=== PATIENT | female | born 1980 | race African-American/Black ===

== ENCOUNTER → 2019-09-10 16:00 | Outpatient (CLI) | payer OTHER, SELFPAY ==
--- NOTE | ~2019-09-10 | MM_ITS ---
EXAMINATION: MM screening min BI w beba HISTORY: Screening mammogram TECHNIQUE: Craniocaudal and mediolateral oblique 3-D tomosynthesis images were obtained and synthetic 2-D images were generated. CAD analysis was submitted and interpreted. COMPARISON: No prior mammogram is available for comparison at this institution. BREAST PARENCHYMAL COMPOSITION: There are scattered areas of fibroglandular density. FINDINGS: RIGHT BREAST: An asymmetry is present in the middle third of the slightly inner breast 5 cm from the nipple on the craniocaudal view.. LEFT BREAST: There is asymmetry in the posterior third of the breast 8.5 cm deep to it in line with t he nipple axis on the craniocaudal view.. IMPRESSION: 1. Bilateral breast asymmetries. 2. Additional mammographic views and possible breast ultrasound are recommended to evaluate for malig josue and establish a baseline given that this is the first mammographic examination. BI-RADS Category 0: Incomplete: Needs additional imaging evaluation. Reviewed, dictated and finalized at location A. IMPRESSION: 1. Bilateral breast asymmetries. 2. Additional mammographic views and possible breast ultrasound are recommended to evaluate for malignancy and establish a baseline given that this is the fir st mammographic examination. BI-RADS Category 0: Incomplete: Needs additional imaging evaluation.
== END ==
PROVIDERS: Visit Provider Nurse Practitioner Obstetrics & Gynecology
DX: Z12.31 Encounter for screening mammogram for malignant neoplasm of breast (principal); R92.8 Other abnormal and inconclusive findings on diagnostic imaging of breast
CPT/HCPCS: 77063; 77067

== ENCOUNTER 2019-09-16 20:06 | Emergency (ER) | payer OTHER, SELFPAY ==
--- NOTE | ~2019-09-16 | XR_ITS ---
EXAMINATION: XR chest 2V 09/16/2019 20:51 INDICATION: Left chest pain PROCEDURE: 2 view chest COMPARISON: 08/16/2018 FINDINGS: The lungs are clear. The cardiomediastinal silhouette is within normal limits. There are no pleural effusions. There is no pneumothorax suspected. IMPRESSION: 1: NO ACUTE CARDIOPULMONARY DISEASE. Reviewed, dictated and finalized at location A.
[2019-09-16 20:10] VITALS: BP 149/80; PULSE 77; RESP 17; TEMP 36.6; O2SAT 97
--- NOTE | 2019-09-16 20:15 | ECG_ITS ---
Measurements Intervals [place] Rate: 63 P: 49 [place]: 147 QRS: 53 QRSD: 90 T: 45 QT: 388 QTc: 397 Interpretive Statements SINUS RHYTHM NORMAL ECG Electronically Signed On 09-18-2019 14:02:57 CDT by Mitch Londono D.O.
[2019-09-16 20:18] VITALS: PULSE 73
--- NOTE | 2019-09-16 20:22 | ED.CHESTPAIN ---
HPI - Chest Pain General Chief Complaint: Chest Pain Stated Complaint: cp Time Seen by Provider: 09/16/19 20:08 Source: patient Mode of arrival: ambulatory Limitations: no limitations History of Present Illness HPI narrative: A 39 y/o female pt has presented to the ED w/ c/o severe constant sharp lt sided cp that began this morning. Pt states that she experiences discomfort in her lt arm when she moves or stretches. Pt notes that her chest hurts when it is pressed. She denies pain radiation, fever, sweats, chills, N/V, or SOB. Pt notes that she has been practicing social distancing and denies any physical activity that could have caused her pain. She states that she took 2 Aleve at lunch time, Prilocel this morning, and at 14:00 aspirin for pain. Pt denies fx of heart disorders. She also denies h/o ID, but states she has heart murmurs. Pt states that she works. She denies drinking, smoking, or drugs. She notes she recently had a mammogram of both breasts and has another scheduled for 09/25/19. complaint: chest pain (lt sided) Pertinent past history: other (mumurs) Onset (ago): hour(s) (this morning) Timing of current episode: constant Pain location: left chest Pain radiation: none Severity: severe Quality: sharp Associated symptoms: other (lt arm pain during movement or stretching, CP when pressed) Treatment prior to arrival: aspirin (2) and other (Prilosec, Aleve) Related Data Home Medications Medication Instructions Recorded Confirmed omeprazole 09/16/19 Allergies Allergy/AdvReac Type Severity Reaction Status Date / Time No Known Allergies Allergy Verified 09/16/19 20:20 Review of Systems Review of Systems: All systems reviewed & are unremarkable except as noted in HPI and below Constitutional: Constitutional: Denies chills, Denies fever(s) and Denies other (pain radiation) Cardiovascular: Cardiovascular: Reports chest pain (lt sided) and Reports other (cp when pressed) Respiratory: Respiratory: Denies dyspnea Gastrointestinal: Gastrointestinal: Denies nausea and Denies vomiting Musculoskeletal: Musculoskeletal: Reports other (lt arm pain with movement and stretching) Endocrine: Endocrine: Denies excessive sweating PMFSH Past Medical History Medical History (Updated 09/16/19 @ 21:59 by Jl Monahan MD) GERD (gastroesophageal reflux disease) Heart murmur Uterine bleeding Surgical History Surgical History (Updated 09/16/19 @ 20:43 by Mati Hagan) H/O cervical biopsy Family History Family History (Updated 09/16/19 @ 20:45 by Mati Hagan) Mother Hypertension Other Hypertension Social History Social History (Updated 09/16/19 @ 20:44 by Mati Hagan) Smoking status: Never smoker Alcohol intake: never Occupation/Education: occupation Exam Narrative: Exam Narrative: GENERAL: Well-appearing, well-nourished, and in no acute distress. HEAD: Normocephalic, atraumatic. ENT: Mucous membranes moist. No pharyngeal erythema or tonsillar exudate. CHEST: Clear to auscultation. No respiratory distress. TTP to the left anterior chest wall. HEART: Regular rate and rhythm. Normal peripheral pulses. ABDOMEN: Soft, nontender, nondistended EXTREMITIES: Normal range of motion. No edema. NEURO: Alert and oriented x3. PSYCH: Normal mood and affect. Course Course Emergency Course: Patient informed of results. Discharge home. Vital Signs Vital signs: Vital Signs Temperature 97.8 F 09/16/19 20:10 Pulse Rate 77 09/16/19 20:10 Respiratory Rate 17 09/16/19 20:10 Blood Pressure 149/80 H 09/16/19 20:10 Pulse Oximetry 97 09/16/19 20:10 Temperature 97.8 F 09/16/19 20:10 Pulse Rate 65 09/16/19 21:56 Respiratory Rate 16 09/16/19 21:56 Blood Pressure 128/75 09/16/19 21:56 Pulse Oximetry 99 09/16/19 21:56 MDM - Chest Pain Lab Data Result diagrams: 09/16/19 20:37 09/16/19 20:37 Labs: Lab Results 09/16/19 09/16/19
[2019-09-16 20:43] LABS: Basophils Percent Auto 0.4 % (0.2-1.2); Eosinophils Absolute Auto 0.1 K/mm3 (0-0.3); Eosinophils Percent Auto 1.4 % (0-4.4); Hematocrit 38.3 % (37.0-47.0); Hemoglobin 12.7 g/dL (12.0-15.0); Immature Granulocyte Absolute 0.02 K/mm3 (0.00-0.031); Immature Granulocyte Percent A 0.2 % (0-0.5); Lymphocytes Absolute Auto 4.04 K/mm3 (0.9-3.2); Lymphocytes Percent Auto 40.1 % (18.3-44.2); Mean Corpuscular HGB Conc 33.2 g/dl (32-36); Mean Corpuscular Hemoglobin 29.5 pg (26-34); Mean Corpuscular Volume 89.1 fl (80-100); Mean Platelet Volume 11.5 fl (7.4-10.4); Monocytes Absolute Auto 0.6 K/mm3 (0.1-0.6); Monocytes Percent Auto 6.1 % (2.6-8.5); Neutrophils Absolute Auto 5.2 K/mm3 (1.3-6.7); Neutrophils Percent Auto 51.8 % (45.5-73.1); Platelet Count Result 302 k/mm3 (150-375); Red Cell Distribution Width 12.6 % (11.5-14.5); White Blood Count 10.1 K/mm3 (4.5-10.0)
[2019-09-16 20:53] LABS: INR 0.9; Prothrombin Time 12.3 Seconds (11.1-14.7)
[2019-09-16 20:54] LABS: Partial Thromboplastin Time 25.2 SECONDS (22.3-36.8)
[2019-09-16 20:55] LABS: Blood Urea Nitrogen 7 mg/dL (7-17); Carbon Dioxide 26 mmol/L (22-30); Chloride 104 mmol/L (98-107); Estimated Glomerular Filt Rate > 60; Glucose 111 mg/dL (65-105); Potassium 3.9 mmol/L (3.4-5.0); Sodium 137 mmol/L (137-145)
[2019-09-16 21:01] LABS: D Dimer 0.27 ug/mL (<0.48)
[2019-09-16 21:07] LABS: Troponin I < 0.012 ng/mL (0.000-0.034)
[2019-09-16 21:56] VITALS: BP 128/75; PULSE 65; RESP 16; O2SAT 99
[2019-09-16 22:06] VITALS: BP 124/78; PULSE 71; RESP 20; O2SAT 98
== END 2019-09-16 22:27 | disposition home or self-care (01) ==
PROVIDERS: Emergency Provider Emergency Medicine
DX: R07.89 Other chest pain (principal); K21.9 Gastro-esophageal reflux disease without esophagitis
CPT/HCPCS: 36415; 71046; 80048; 84484; 85025; 85380; 85610; 85730; 93005; 99284

== ENCOUNTER 2019-10-11 12:00 | Outpatient (CLI) | payer OTHER, SELFPAY ==
--- NOTE | ~2019-10-11 | MM_ITS ---
EXAMINATION: MM diagnostic mammo BI HISTORY: Asymmetries reported in each breast on craniocaudal views of 09/10/2019 screening mammogram TECHNIQUE: Additional 3-D tomosynthesis images of both breasts were performed and synthetic 2-D image s were generated. Bilateral rolled medial and rolled lateral craniocaudal views. CAD analysis was sub mitted and interpreted. COMPARISON: 09/10/2019 bilateral digital screening mammogram FINDINGS: No reproducible mass or architectural distortion is detected. IMPRESSION: 1. No mammographic evidence of malignancy 2. Routine annual mammographic screening is recommended. BI-RADS Category 1: Negative Reviewed, dictated and finalized at location A.
== END 2019-10-11 12:01 | disposition home or self-care (01) ==
LOC: ANHIMG 12:06
PROVIDERS: Visit Provider Nurse Practitioner Obstetrics & Gynecology
DX: R92.8 Other abnormal and inconclusive findings on diagnostic imaging of breast (principal)
CPT/HCPCS: 77066

== ENCOUNTER 2020-03-02 01:18 | Emergency (ER) | payer OTHER, SELFPAY ==
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
[2020-03-02 01:24] VITALS: BP 135/90; PULSE 83; RESP 16; TEMP 36.3; O2SAT 100
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
== END 2020-03-02 02:57 | disposition home or self-care (01) ==
PROVIDERS: Emergency Provider General Practice
DX: S03.42XA Sprain of jaw, left side, initial encounter (principal); K21.9 Gastro-esophageal reflux disease without esophagitis; Y04.8XXA Assault by other bodily force, initial encounter
CPT/HCPCS: 70486; 99284

== ENCOUNTER 2020-08-30 21:00 | Emergency (ER) | payer OTHER, SELFPAY ==
--- NOTE | ~2020-08-30 | XR_ITS ---
EXAMINATION: XR chest 2V 08/30/2020 22:07 INDICATION: Midsternal chest pain PROCEDURE: PA and lateral views of the chest COMPARISON: 09/16/2019 FINDINGS: The lungs are clear. The cardiomediastinal silhouette is within normal limits. There are no pleural effusions. There is no pneumothorax suspected. IMPRESSION: 1: NO ACUTE CARDIOPULMONARY DISEASE. Reviewed, dictated and finalized at location A.
[2020-08-30 21:07] VITALS: BP 130/74; PULSE 75; RESP 19; TEMP 35.6; O2SAT 100
--- NOTE | 2020-08-30 21:10 | ECG_ITS ---
Measurements Intervals [place] Rate: 64 P: 63 HI: 148 QRS: 49 QRSD: 86 T: 44 QT: 394 QTc: 408 Interpretive Statements SINUS RHYTHM WITH SINUS ARRHYTHMIA NORMAL ECG Electronically Signed On 08-31-2020 7:08:20 CDT by Mitch Londono D.O.
[2020-08-30 21:41] LABS: Basophils Absolute Auto 0.1 K/mm3 (0.0-0.1); Basophils Percent Auto 0.5 % (0.2-1.2); Eosinophils Absolute Auto 0.2 K/mm3 (0-0.3); Eosinophils Percent Auto 1.9 % (0-4.4); Hematocrit 39.1 % (37.0-47.0); Immature Granulocyte Absolute 0.03 K/mm3 (0.00-0.031); Immature Granulocyte Percent A 0.3 % (0-0.5); Lymphocytes Percent Auto 39.2 % (18.3-44.2); Mean Corpuscular HGB Conc 33.2 g/dl (32-36); Mean Corpuscular Hemoglobin 29.6 pg (26-34); Mean Corpuscular Volume 89.1 fl (80-100); Mean Platelet Volume 10.6 fl (7.4-10.4); Monocytes Absolute Auto 0.6 K/mm3 (0.1-0.6); Monocytes Percent Auto 5.4 % (2.6-8.5); Neutrophils Absolute Auto 5.4 K/mm3 (1.3-6.7); Neutrophils Percent Auto 52.7 % (45.5-73.1); Platelet Count Result 303 k/mm3 (150-375); Red Blood Count 4.39 M/mm3 (4.2-5.4); Red Cell Distribution Width 12.6 % (11.5-14.5); White Blood Count 10.2 K/mm3 (4.5-10.0)
[2020-08-30 21:51] LABS: INR 0.9; Prothrombin Time 12.9 Seconds (11.1-14.7)
[2020-08-30 21:52] LABS: Anion Gap 6 mmol/L (8-16); Blood Urea Nitrogen 18 mg/dL (7-17); Calcium 9.1 mg/dL (8.4-10.2); Carbon Dioxide 28 mmol/L (22-30); Chloride 106 mmol/L (98-107); Estimated CRCL calculation 82 ml/min; Estimated Glomerular Filt Rate > 60; Glucose 91 mg/dL (65-105); Partial Thromboplastin Time 25.8 SECONDS (22.3-36.8); Potassium 3.8 mmol/L (3.4-5.0); Sodium 140 mmol/L (137-145)
[2020-08-30 22:04] LABS: Troponin I < 0.012 ng/mL (0.000-0.034)
--- NOTE | 2020-08-30 22:09 | ED.CHESTPAIN ---
HPI - Chest Pain General Chief Complaint: Chest Pain Stated Complaint: chest pain, increase with movement Time Seen by Provider: 08/30/20 21:59 Source: RN notes reviewed History of Present Illness HPI narrative: Patient presents to emergency department from home for chest pain. Patient states she has had midsternal chest pain for the past 2 days the pain is described as sharp and stabbing. Patient states the pain has been constant for the past 2 days but will wax and wane in intensity pain is worse with deep inspiration and movement of the torso denies any radiation of the pain denies any fevers or chills shortness of breath abdominal pain nausea vomiting diarrhea or any other symptoms Related Data Allergies Allergy/AdvReac Type Severity Reaction Status Date / Time No Known Allergies Allergy Verified 03/02/20 01:34 Review of Systems Review of Systems: Narrative: Gen.: Denies fevers or chills ENT: Denies congestion Respiratory: Denies shortness of breath or cough CV: See HPI GI: Denies abdominal pain nausea, emesis or diarrhea Musculoskeletal: Denies back pain or muscle pain Neuro: Denies numbness, tingling, weakness or focal weakness Skin: Denies rash Except as documented, all other systems reviewed and negative [facility] Past Medical History Medical History GERD (gastroesophageal reflux disease) Heart murmur Uterine bleeding Surgical History Surgical History (Updated 09/16/19 @ 20:43 by Mati Hagan) H/O cervical biopsy Family History Family History (Updated 09/16/19 @ 20:45 by Mati Hagan) Mother Hypertension Other Hypertension Social History Social History Smoking status: Never smoker Alcohol intake: never Exam Narrative: Exam Narrative: APPEARANCE: No acute distress, nontoxic, resting in bed EYES: EOMI HEENT: Normocephalic, atraumatic, OMM RESPIRATORY: No respiratory distress Clear to auscultation bilaterally with no rhonchi wheezing or rales. CARDIOVASCULAR: Regular rate and rhythm without murmurs rubs or gallops. Chest: Turn palpation of lower midsternal chest, pain increased with deep inspiration bending over rotation of torso pain improved with holding breath ABDOMINAL: Soft, nontender, nondistended, no rebound or guarding MUSCULOSKELETAl: Moves all extremities. No clubbing, cyanosis or edema. NEURO: Awake and alert. Following commands, speech normal, no focal deficits SKIN:: Warm, dry. No rashes lesions or abrasions PSYCHIATRIC: Normal affect/mood, Course Course Emergency Course: Discussed with patient results of workup and diagnosis. Discussed need for follow-up with primary care, proper use of medication, and reasons to return to the emergency department. Patient understands and agrees to current treatment plan Vital Signs Vital signs: Vital Signs Temperature 96.0 F L 08/30/20 21:07 Pulse Rate 75 08/30/20 21:07 Respiratory Rate 19 08/30/20 21:07 Blood Pressure 130/74 08/30/20 21:07 Pulse Oximetry 100 08/30/20 21:07 Temperature 96.0 F L 08/30/20 21:07 Pulse Rate 66 08/31/20 00:33 Respiratory Rate 18 08/31/20 00:33 Blood Pressure 126/82 08/31/20 00:33 Pulse Oximetry 98 08/31/20 00:33 MDM - Chest Pain MDM Narrative Medical decision making narrative: Patient's EKGs and labs are without significant high risk changes. Cardiac risk factors reviewed. Patient is felt likely low risk for ACS and reasonable for further risk stratification testing as an outpatient. Pain was not sudden or maximal in onset without tearing or ripping quality. No other signs of symptoms suggest aortic dissection. A low-risk Wells criteria is noted, PE is felt to be unlikely. No pneumonia seen on evaluation today. Patient is felt to be a reasonable candidate for continued evaluation as an outpatient Lab Data Result diagrams: 08/30/20 21:35 08/30/20 21:35
[2020-08-30 22:19] LABS: D Dimer 0.31 ug/mL (<0.48)
[2020-08-30 22:44] LABS: Alanine Aminotransferase 16 U/L (4-35); Albumin Level 4.1 g/dL (3.5-5.1); Alkaline Phosphatase 62 U/L (38-126); Aspartate Amino Transferase 38 U/L (14-36); Bilirubin,Total 0.3 mg/dL (0.2-1.3); Lipase 161 U/L (23-300)
[2020-08-30 22:56] VITALS: BP 122/72; PULSE 61; RESP 16; O2SAT 98
[2020-08-30] MEDS: KETOROLAC 30 MG/ML VIAL (*BKC) IV PUSH (22:56)
[2020-08-31 00:33] VITALS: BP 126/82; PULSE 66; RESP 18; O2SAT 98
[2020-08-31 01:22] LABS: Troponin I < 0.012 ng/mL (0.000-0.034)
[2020-08-31 02:31] VITALS: BP 135/92; PULSE 82; RESP 18; O2SAT 97
== END 2020-08-31 02:53 | disposition home or self-care (01) ==
PROVIDERS: Emergency Medicine; Emergency Provider Emergency Medicine
DX: R07.89 Other chest pain (principal); K21.9 Gastro-esophageal reflux disease without esophagitis; R01.1 Cardiac murmur, unspecified
CPT/HCPCS: 36415; 71046; 80048; 80076; 83690; 84484; 85025; 85380; 85610; 85730; 93005; 96374; 99284; A9270; J1885

== ENCOUNTER → 2020-09-12 11:12 | Outpatient (CLI) | payer OTHER, SELFPAY ==
--- NOTE | ~2020-09-12 | MM_ITS ---
EXAMINATION: MM screening min BI w beba HISTORY: Screening mammogram TECHNIQUE: Craniocaudal and mediolateral oblique 3-D tomosynthesis images were obtained and synthetic 2-D images were generated. CAD analysis was submitted and interpreted. COMPARISON: 10/11/2019, 09/10/2019 bilateral digital screening mammogram examinations BREAST PARENCHYMAL COMPOSITION: There are scattered areas of fibroglandular density. FINDINGS: There is no evidence of suspicious mass, calcification, or architectural distortion to sugg est malignancy in either breast. There has been no suspicious interval change. IMPRESSION: 1. No mammographic evidence of malignancy. 2. Recommend routine screening mammography in one year. BI-RADS Category 1: Negative Reviewed, dictated and finalized at location A.
== END ==
PROVIDERS: Visit Provider Nurse Practitioner Obstetrics & Gynecology
DX: Z12.31 Encounter for screening mammogram for malignant neoplasm of breast (principal)
CPT/HCPCS: 77063; 77067

== ENCOUNTER 2020-10-29 17:38 | Emergency (ER) | payer OTHER, SELFPAY ==
--- NOTE | 2020-10-29 17:40 | ED.SKABFB ---
HPI - Skin/Abscess/Foreign Bdy General Chief complaint: Skin/Abscess/Foreign Body Stated complaint: bump on butt Time Seen by Provider: 10/29/20 18:00 Source: patient and RN notes reviewed Mode of arrival: ambulatory Limitations: no limitations History of Present Illness HPI narrative: 40-year-old female presents concern for a bump on her left buttock. Reports symptoms started approximately 1 week ago and pain has been worsening. She denies any generalized symptoms such as fever, malaise, body aches, chills. She reports the area is tender to touch. She is not sure if it has drained or not. MD complaint: abscess/boil Related Data Home Medications Medication Instructions Recorded Confirmed drospirenone (contraceptive) 4 mg PO DAILY 10/29/20 10/29/20 [Slynd] pantoprazole 40 mg PO DAILY 10/29/20 10/29/20 sucralfate 1 g PO DAILY PRN 10/29/20 10/29/20 Allergies Allergy/AdvReac Type Severity Reaction Status Date / Time No Known Allergies Allergy Verified 10/29/20 17:44 Review of Systems Review of Systems: Narrative: CONSTITUTIONAL: Denies malaise, chills, sweats, or fever. SKIN: Bump on her left buttock MUSCULOSKELETAL: Denies myalgia. All systems reviewed & are unremarkable except as noted in HPI and below PMFSH Past Medical History Medical History GERD (gastroesophageal reflux disease) Heart murmur Uterine bleeding Surgical History Surgical History (Updated 09/16/19 @ 20:43 by Mati Hagan) H/O cervical biopsy Family History Family History (Updated 09/16/19 @ 20:45 by Mati Hagan) Mother Hypertension Other Hypertension Social History Social History Smoking status: Never smoker Alcohol intake: never Comments At time of signature, agree with nursing past medical, surgical, social and family history. There is no relevant family history pertinent to the presenting complaint Exam Narrative: Exam Narrative: GENERAL: Well-appearing, well-nourished, and in no acute distress. HEAD: Normocephalic, atraumatic. EYES: PERRLA, conjunctivae clear, and EOMI. ENT: Mucous membranes moist. Oropharynx without edema, erythema or lesions. NECK: Supple. No lymphadenopathy CHEST: Clear to auscultation. No respiratory distress. HEART: Regular rate and rhythm. SKIN: Warm, dry. Raised erythematous indurated area approximately 1 cm diameter with yellowed central scab noted to the left buttock with surrounding erythema of approximately 3 cm. No fluctuation noted, no current drainage noted NEURO: Alert and oriented x3. PSYCH: Normal mood and affect Course Course Emergency Course: Patient is aware of diagnosis, understands and agrees to treatment plan. Anticipatory guidance given. Patient agrees to follow-up as directed and is aware of reasons to seek care at the emergency department. Portions of this record may have been created with voice recognition software Vital Signs Vital signs: Vital Signs Temperature 97.3 F L 10/29/20 17:47 Pulse Rate 80 10/29/20 17:47 Respiratory Rate 16 10/29/20 17:47 Pulse Oximetry 100 10/29/20 17:47 Temperature 97.3 F L 10/29/20 17:47 Pulse Rate 80 10/29/20 17:47 Respiratory Rate 16 10/29/20 17:47 Pulse Oximetry 100 10/29/20 17:47 Reviewed. MDM - Skin/Abscess/Foreign Bdy MDM Narrative Medical decision making narrative: Exam findings show no acute concerns or changes; patient is non-toxic appearing and is in no distress. Patient is appropriate for outpatient treatment and follow-up. Differential Diagnosis Differential diagnosis: Likely abscess of skin or subcutaneous tissue, cellulitis and contact dermatitis Critical Care Time Critical Care Time Critical Care Time: No Discharge Plan Discharge Clinical Impression: Abscess and cellulitis of gluteal region Patient Disposition: Home, Self-Care Condition: Stable Inst
[2020-10-29 17:47] VITALS: PULSE 80; RESP 16; TEMP 36.3; O2SAT 100
== END 2020-10-29 18:18 | disposition home or self-care (01) ==
PROVIDERS: Emergency Provider Nurse Practitioner
DX: L02.31 Cutaneous abscess of buttock (principal); L03.317 Cellulitis of buttock; K21.9 Gastro-esophageal reflux disease without esophagitis; R01.1 Cardiac murmur, unspecified
CPT/HCPCS: 99213; G0463

== ENCOUNTER 2021-03-01 18:12 | Emergency (ER) | payer OTHER, SELFPAY ==
[2021-03-01 18:24] VITALS: BP 132/82; PULSE 68; RESP 16; TEMP 36.6; O2SAT 100
--- NOTE | 2021-03-01 18:57 | ED.SKABFB ---
HPI - Skin/Abscess/Foreign Bdy General Chief complaint: Skin/Abscess/Foreign Body Stated complaint: rash Source: patient and RN notes reviewed Limitations: no limitations History of Present Illness HPI narrative: The patient, previously mostly healthy, presents with skin eruption. Patient states she has a prior history of abscess for which she was treated with Bactrim. Now she complains about a week history of right gluteal induration that is mild, worse with palpation. No fever, fluctuance, streaking, spontaneous discharge; she also mentions in the last couple days she has developed a pink, itchy eruption on her bilateral forearms. Symptoms are mild, worse with scratching or palpation Related Data Home Medications Medication Instructions Recorded Confirmed pantoprazole 40 mg PO DAILY 10/29/20 03/01/21 Allergies Allergy/AdvReac Type Severity Reaction Status Date / Time No Known Allergies Allergy Verified 03/01/21 18:27 Review of Systems Review of Systems: General/Constitutional: No weight loss,fever Eyes: N0: Redness,discharge Ears/Nose/Throat: No: Epistaxis,ear discharge Respiratory: Denies: Hemoptysis Gastrointestinal: No Vomiting, Bleeding-rectal Skin: No Lumps, eruption Neurologic: No Focal Weakness,Sz Hematologic: Denies: Petechiae/Purpura Psychiatric: No: Suicida ideationl All Other Systems: Reviewed and Negative [facility] Past Medical History Medical History GERD (gastroesophageal reflux disease) Heart murmur Uterine bleeding Surgical History Surgical History (Updated 09/16/19 @ 20:43 by Mati Hagan) H/O cervical biopsy Family History Family History (Updated 09/16/19 @ 20:45 by Mati Hagan) Mother Hypertension Other Hypertension Social History Social History Smoking status: Never smoker Alcohol intake: never Comments At time of signature, agree with nursing past medical, surgical, social and family history. There is no relevant family history pertinent to the presenting complaint Exam Narrative: General Appearance: Well appearing, conjunctiva clear Mouth/Throat: Normal appearing, Normal lips, Supple Respiratory: Airway patent, No respiratory distress Abdomen: Soft, Skin: Warm, Dry, slightly indurated but not fluctuant right gluteal follicle Musculoskeletal: Full ROM, there are maculopapular, blanching eruption on the bilateral forearms Neurological: A&O x3, CN II-X intact Psychiatric: Normal mood, Normal affect Course Vital Signs Vital signs: Vital Signs Temperature 97.9 F 03/01/21 18:24 Pulse Rate 68 03/01/21 18:24 Respiratory Rate 16 03/01/21 18:24 Blood Pressure 132/82 03/01/21 18:24 Pulse Oximetry 100 03/01/21 18:24 Temperature 97.9 F 03/01/21 18:24 Pulse Rate 68 03/01/21 18:24 Respiratory Rate 16 03/01/21 18:24 Blood Pressure 132/82 03/01/21 18:24 Pulse Oximetry 100 03/01/21 18:24 Discharge Plan Discharge Clinical Impression: Folliculitis Patient Disposition: Home, Self-Care Condition: Stable Instructions: Antibiotic Form, MRSA (Methicillin-Resistant Staphylococcus Aureus) (ED) Additional Instructions: Take clindamycin with food, probiotic or antacid; stop if diarrhea occurs Avoid shaving or injury to hair where eruptions have occurred Antibiotic creams for future use in case individual/small lesions recur You may try OTC preparations like antihistamines for itching Prescriptions: New clindamycin HCl 300 mg capsule 300 mg PO TID Qty: 20 RF: 0 mupirocin 2 % ointment 1 applic TOPICAL TID Qty: 30 RF: 0 No Action pantoprazole 40 mg tablet,delayed release (DR/EC) 40 mg PO DAILY RF: 0 Follow-up/Referrals: Martin,Michelle Mata MD [Primary Care Provider] -
== END 2021-03-01 19:07 | disposition home or self-care (01) ==
PROVIDERS: Emergency Provider Emergency Medicine; PCP Hospitalist
DX: L73.9 Follicular disorder, unspecified (principal)
CPT/HCPCS: 99213; G0463

== ENCOUNTER 2021-06-06 13:19 | Emergency (ER) | payer OTHER, SELFPAY ==
[2021-06-06 13:27] VITALS: BP 127/77; PULSE 78; RESP 20; TEMP 36.4; O2SAT 100
--- NOTE | 2021-06-06 13:50 | ED.URI ---
HPI - URI/Sore Throat General Chief Complaint: Upper Respiratory Infection Stated Complaint: sore throat History of Present Illness HPI Narrative: This is a 40-year-old female presented to urgent care with complaints of a sore throat, mild cough,, fatigue, chills and body aches. Patient notes that she received her booster on the of this month a coworker tested positive on the for Covid she tested negative with the rapid. Patient notes that her symptoms has not improved she does have a history of having Covid along with strep throat and upper respiratory infections. The patient denies SOB, CP, palpitation, extremity numbness, lightheadedness, dizziness, constipation, diarrhea, or fever. Patient notes that she took ibuprofen at home and natural medication to boost your immune system. Related Data Home Medications Medication Instructions Recorded Confirmed pantoprazole 40 mg PO DAILY 10/29/20 06/06/21 Allergies Allergy/AdvReac Type Severity Reaction Status Date / Time No Known Allergies Allergy Verified 03/01/21 18:27 Review of Systems Review of Systems: A 14 organ system Review of Systems was performed and pertinent positives included in the HPI, otherwise remaining ROS is negative. FORMERLY [facility] Past Medical History Medical History GERD (gastroesophageal reflux disease) Heart murmur Uterine bleeding Surgical History Surgical History H/O cervical biopsy Family History Family History Mother Hypertension Other Hypertension Social History Social History Smoking status: Never smoker Alcohol intake: never Exam Narrative: GENERAL: This is a well-nourished, well-developed patient, in no apparent distress. HEAD: normocephalic, atraumatic. EYES: PERRL. Sclera clear/white. Vision is grossly intact. EARS: External ears normal, auditory canals clear and without drainage, TMs normal without perforation. Hearing grossly intact. NOSE: External nose normal with no obvious nasal discharge, nares without redness, no rhinorrhea. THROAT: Mucous membranes moist, posterior pharynx clear. NECK: Neck supple, non-tender without lymphadenopathy, masses or thyromegaly. CARDIOVASCULAR: Regular rate and rhythm without murmurs, gallops, or rubs. RESPIRATORY: Clear to auscultation. Breath sounds equal bilaterally. No wheezes, rales, or rhonchi. GASTROINTESTINAL: Abdomen soft, non-tender, nondistended. Bowel sounds are active. No hepato-splenomegaly, or palpable masses. No guarding. SKIN: warm, intact with no suspicious lesions or rash, good texture and turgor. NEURO: awake, alert, and oriented to person, place and time. There were no obvious focal neurologic abnormalities. Steady gait EXTREMITIES: Normal range of motion. No edema. No calf tenderness. Negative Homans sign bilaterally. BACK: Nontender without deformity or crepitance. No flank tenderness. Course Course Emergency Course: Patient treated for viral infection, instructed to use [id number] medication for cold and flu. Strep, influenza and Covid all negative Vital Signs Vital signs: Vital Signs Temperature 97.6 F 06/06/21 13:27 Pulse Rate 78 06/06/21 13:27 Respiratory Rate 20 06/06/21 13:27 Blood Pressure 127/77 06/06/21 13:27 Pulse Oximetry 100 06/06/21 13:27 Temperature 97.6 F 06/06/21 13:27 Pulse Rate 78 06/06/21 13:27 Respiratory Rate 20 06/06/21 13:27 Blood Pressure 127/77 06/06/21 13:27 Pulse Oximetry 100 06/06/21 13:27 MDM - URI/Sore Throat Differential Diagnosis Differential diagnosis: Likely upper respiratory infection, viral infection, influenza and pharyngitis Lab Data Labs: Influenza A Screen Negative Reference Range:
== END 2021-06-06 14:30 | disposition home or self-care (01) ==
PROVIDERS: Emergency Provider Nurse Practitioner; PCP Hospitalist
DX: J02.9 Acute pharyngitis, unspecified (principal); B34.9 Viral infection, unspecified; Z20.822 Contact with and (suspected) exposure to COVID-19; K21.9 Gastro-esophageal reflux disease without esophagitis; R01.1 Cardiac murmur, unspecified; Z86.16 Personal history of COVID-19
CPT/HCPCS: 87081; 87426; 87804; 87880; 99213; C9803; G0463

== ENCOUNTER → 2021-06-07 08:09 | Outpatient (CLI) | payer OTHER, SELFPAY ==
[2021-06-07 19:04] LABS: SARS-CoV-2 RNA PCR Negative
== END ==
PROVIDERS: PCP Hospitalist; Visit Provider Nurse Practitioner
DX: Z20.822 Contact with and (suspected) exposure to COVID-19 (principal)
CPT/HCPCS: C9803; U0003; U0005

== ENCOUNTER 2021-06-13 15:51 | Emergency (ER) | payer OTHER, SELFPAY ==
--- NOTE | ~2021-06-13 | XR_ITS ---
EXAMINATION: XR chest 2V DATE: 06/13/2021 18:36 INDICATION: Cough. Fatigue. TECHNIQUE: Frontal and lateral views of the chest were obtained. COMPARISON: Chest 2 views 08/30/2020 FINDINGS: Calcified lung nodules and calcified hilar lymph nodes are consistent with old granulomatou s disease. No pleural effusion or pneumothorax. The heart size is normal. IMPRESSION: 1. No acute cardiopulmonary disease. Reviewed, dictated and finalized at location A. ONAL GREENERY BUNDLER
[2021-06-13 16:33] VITALS: BP 138/83; PULSE 68; RESP 16; TEMP 36.1; O2SAT 100
--- NOTE | 2021-06-13 17:45 | ED.GENADULT ---
HPI - General Adult General Chief complaint: Upper Respiratory Infection Stated complaint: sore throat Source: patient Mode of arrival: ambulatory Limitations: no limitations History of Present Illness HPI narrative: Patient presents for evaluation of respiratory symptoms. She indicates that 9 days ago she developed a sore throat. She then developed a productive cough of yellow sputum, postnasal drainage, chills and fatigue. She denies any fever, nausea, vomiting, diarrhea, shortness of breath. Was evaluated here 1 week ago and had negative strep, flu, Covid testing performed. She has been drinking soup and tea to assist with her symptoms. She is also been taking Motrin and Mucinex. Her mother is being evaluated here for similar symptoms. She had Covid in February 2020. She has received her Covid vaccinations and her booster. Her boyfriend found out yesterday that he was positive for Covid. She does not smoke. No additional complaints or concerns. Related Data Home Medications Medication Instructions Recorded Confirmed pantoprazole 40 mg PO DAILY 10/29/20 06/13/21 Allergies Allergy/AdvReac Type Severity Reaction Status Date / Time No Known Allergies Allergy Verified 06/13/21 16:32 Review of Systems Review of Systems: CONSTITUTIONAL:Reports chills and fatigue. Denies fever EYES: Denies visual changes, redness, or discharge. ENT: Reports sore throat and postnasal drainage CARDIOVASCULAR: Denies chest pain, palpitations, or edema. RESPIRATORY: Reports productive cough of yellow sputum, Denies SOB GASTROINTESTINAL: Denies abdominal pain, nausea, vomiting, or diarrhea. GENITOURINARY: Denies dysuria or hematuria. SKIN: Denies rash or itching. MUSCULOSKELETAL: Denies back pain, joint pain, or myalgia. NEUROLOGIC: Denies headache, numbness, dizziness, or weakness. PSYCHIATRIC: Denies anxiety or depression. [facility] Past Medical History Medical History GERD (gastroesophageal reflux disease) Heart murmur Uterine bleeding Surgical History Surgical History H/O cervical biopsy Family History Family History Mother Hypertension Other Hypertension Social History Social History Smoking status: Never smoker Alcohol intake: never Exam Narrative: GENERAL: Well-appearing, well-nourished, and in no acute distress. HEAD: Normocephalic, atraumatic. EYES: PERRLA and EOMI. ENT: Nares clear, no rhinorrhea or epistaxis. Mucous membranes moist. Posterior pharyngeal erythema without exudate. Uvula is midline. Bilateral TMs pearly house nonbulging NECK: Supple. No adenopathy or masses. No carotid bruits or JVD CHEST: Clear to auscultation. No respiratory distress. No wheezes rales or rhonchi HEART: Regular rate and rhythm. No murmur heard. Normal peripheral pulses. ABDOMEN: Soft, nontender, nondistended, normal active bowel sounds. EXTREMITIES: Normal range of motion. No edema. SKIN: Warm, dry, no rash. NEURO: No focal deficits. Alert and oriented x3. PSYCH: Normal mood and affect. Course Course Emergency Course: This is a 40-year-old female present with complaints of respiratory symptoms with recent negative Covid, strep, influenza, chest x-ray. Symptoms have persisted. Strep, Covid, influenza and chest x-ray were all negative again today. Patient requesting antibiotics. This is reasonable given the fact that she has had a persistent sore throat. Will discharge with amoxicillin. She should follow-up outpatient for further evaluation treatment and return for worsening symptoms. Patient agreed with and of care per Level of Care: Express Care Visit Vital Signs Vital signs: Vital Signs Temperature 36.1 C L 06/13/21 16:33 Pulse Rate 68 06/13/21 16:33 Respiratory R
== END 2021-06-13 19:25 | disposition home or self-care (01) ==
PROVIDERS: Emergency Provider Nurse Practitioner; PCP Hospitalist
DX: J02.9 Acute pharyngitis, unspecified (principal); Z20.822 Contact with and (suspected) exposure to COVID-19; K21.9 Gastro-esophageal reflux disease without esophagitis; R01.1 Cardiac murmur, unspecified
CPT/HCPCS: 71046; 87081; 87426; 87804; 87880; 99213; C9803; G0463

== ENCOUNTER 2022-04-26 21:04 | Emergency (ER) | payer OTHER, SELFPAY ==
[2022-04-26 21:31] VITALS: BP 148/86; PULSE 68; RESP 14; TEMP 36.3; O2SAT 100
[2022-04-26 23:02] VITALS: BP 137/105; PULSE 74; RESP 16; TEMP 36; O2SAT 98
--- NOTE | 2022-04-27 00:32 | ED.FALL ---
HPI - Fall General Chief Complaint: Fall Stated Complaint: fall with pain to right elbow and knee Time Seen by Provider: 04/27/22 00:02 History of Present Illness HPI Narrative: 41-year-old female presents to the emergency room with multiple complaints. Patient states that 1:00 this afternoon she slipped on a gumball that fell off a gumball tree and she fell on her right side. Patient reports twisting her right ankle, then landing on her right knee hip elbow and right shoulder. Patient states that she is also experiencing pain to the left side of neck. Patient states following the injury she was able to stand up and continue finishing her shift at work, came home picked up her daughter and completed all of her normal ADLs. Patient states that pain is a 10 out of 10, but has not taken any Tylenol or ibuprofen or ice to any of the injuries. Related Data Home Medications Medication Instructions Recorded Confirmed pantoprazole 40 mg tablet,delayed 40 mg PO DAILY 10/29/20 06/13/21 release Allergies Allergy/AdvReac Type Severity Reaction Status Date / Time No Known Allergies Allergy Verified 04/26/22 21:04 Review of Systems Review of Systems: CONSTITUTIONAL: Denies fever, chills, or sweats. EYES: Denies visual changes, redness, or discharge. ENT: Denies rhinorrhea, congestion, sore throat, or otalgia. CARDIOVASCULAR: Denies chest pain, palpitations, or edema. RESPIRATORY: Denies cough or dyspnea. GASTROINTESTINAL: Denies abdominal pain, nausea, vomiting, or diarrhea. GENITOURINARY: Denies dysuria or hematuria. SKIN: Denies rash or itching. MUSCULOSKELETAL: Reports right knee, right elbow, right shoulder, and left cervical spine NEUROLOGIC: Denies headache, numbness, dizziness, or weakness. PSYCHIATRIC: Denies anxiety or depression. [facility] Past Medical History Medical History GERD (gastroesophageal reflux disease) Heart murmur Uterine bleeding Surgical History Surgical History H/O cervical biopsy Family History Family History Mother Hypertension Other Hypertension Social History Social History Smoking status: Never smoker Alcohol intake: never Exam Narrative: GENERAL: Well-appearing, well-nourished, no physical limitations, and in no acute distress. HEAD: Normocephalic, atraumatic. EYES: Conjunctivae normal, PERRLA and EOMI. CHEST: Clear to auscultation. No respiratory distress. No wheezes rales or rhonchi. HEART: Regular rate and rhythm. No murmur heard. Normal peripheral pulses. BACK: No midline cervical/thoracic/lumbar tenderness, step-offs, bony abnormality; FROM. Tenderness over the left trapezius muscle. EXTREMITIES: Right ankle: No soft tissue swelling, no bony tenderness, no ecchymosis, no bony abnormality, full range of motion. No joint laxity. Neurovascular is intact distally. Right knee: No pinpoint tenderness, no soft tissue swelling, no joint laxity, Natasha's test is negative. Full range of motion. No patellar tracking. Right elbow: Positive TTP and hematoma over the olecranon. Full range of motion, no bony abnormality. Right shoulder: No TTP, no soft tissue swelling, full range of motion, SKIN: Warm, dry, no rash. No noted wounds NEURO: No focal deficits. Alert and oriented x3. MAEW. CN's II-XI intact bilaterally, normal gait PSYCH: Cooperative. Normal mood and affect. Course Vital Signs Vital signs: Vital Signs Temperature 36.3 C L 04/26/22 21:31 Pulse Rate 68 04/26/22 21:31 Respiratory Rate 14 04/26/22 21:31 Blood Pressure 148/86 H 04/26/22 21:31 Pulse Oximetry 100 04/26/22 21:31 Oxygen Delivery Room Air 04/26/22 21:31 Temperature 36.0 C L 04/26/22 23:02 Pulse Rate 74 04/26/22 23:02 Respiratory Rate 16 04/26/22 23:02 Blood P
[2022-04-27] MEDS: KETOROLAC (*BKC) 60 MG/2 ML VIAL IM (00:59)
[2022-04-27 01:10] VITALS: BP 143/97; PULSE 61; RESP 18; O2SAT 100
== END 2022-04-27 01:17 | disposition home or self-care (01) ==
PROVIDERS: Emergency Provider Nurse Practitioner Family; PCP Hospitalist
DX: S99.911A Unspecified injury of right ankle, initial encounter (principal); S89.91XA Unspecified injury of right lower leg, initial encounter; S50.01XA Contusion of right elbow, initial encounter; M62.838 Other muscle spasm; K21.9 Gastro-esophageal reflux disease without esophagitis; W18.09XA Striking against other object with subsequent fall, initial encounter; X50.9XXA Other and unspecified overexertion or strenuous movements or postures, initial encounter
CPT/HCPCS: 96372; 99283; J1885

== ENCOUNTER 2022-05-21 13:05 | Emergency (ER) | payer OTHER, SELFPAY ==
--- NOTE | ~2022-05-21 | CT_ITS ---
EXAMINATION: CT abdomen pelvis w con DATE: 05/21/2022 16:35 INDICATION: left flank pain radiating to LLQ, constipatoin TECHNIQUE: Computed tomography (CT) of the abdomen and pelvis was performed with 100 mL Omnipaque-350 intravenous contrast. Automated exposure control and iterative reconstruction technique were employe d. The dose-length product was 893.64 mGy-cm. COMPARISON: None. FINDINGS: Lower thorax: Unremarkable Liver: Normal. Biliary/Gallbladder: Gallbladder is normal. No bile duct dilation. Pancreas: No mass or duct dilation. Spleen: Normal. Adrenals:No mass. Kidneys: 2 mm left lower pole calculus. No mass, obstructing stone, or hydronephrosis. GI tract: No small or large bowel dilation. Normal appendix. Mesentery/Peritoneum: No ascites, mass, or free air. Retroperitoneum: No mass. Pelvis: Pelvic organs are within normal limits. Soft Tissues: Uncomplicated fat-containing umbilical hernia Bones: No acute osseous finding. IMPRESSION: No acute abdominopelvic process detected. Reviewed, dictated and finalized at location K. RING ATTENDANT
[2022-05-21 13:24] VITALS: BP 134/73; PULSE 69; RESP 16; TEMP 36.4; O2SAT 100
[2022-05-21 13:36] LABS: Basophils Percent Auto 0.3 % (0.2-1.2); Eosinophils Absolute Auto 0.1 K/mm3 (0-0.3); Eosinophils Percent Auto 0.6 % (0-4.4); Hematocrit 39.3 % (37.0-47.0); Immature Granulocyte Absolute 0.05 K/mm3 (0.00-0.031); Immature Granulocyte Percent A 0.4 % (0-0.5); Lymphocytes Percent Auto 33.3 % (18.3-44.2); Mean Corpuscular HGB Conc 33.1 g/dl (32-36); Mean Corpuscular Hemoglobin 29.5 pg (26-34); Mean Corpuscular Volume 89.3 fl (80-100); Mean Platelet Volume 10.6 fl (7.4-10.4); Monocytes Absolute Auto 0.6 K/mm3 (0.1-0.6); Monocytes Percent Auto 5.4 % (2.6-8.5); Platelet Count Result 329 k/mm3 (150-375); Red Cell Distribution Width 12.8 % (11.5-14.5); White Blood Count 11.7 K/mm3 (4.5-10.0)
[2022-05-21 13:45] LABS: Alanine Aminotransferase 14 U/L (6-35); Albumin Level 3.9 g/dL (3.5-5.1); Alkaline Phosphatase 45 U/L (38-126); Anion Gap 4 mmol/L (8-16); Aspartate Amino Transferase 19 U/L (14-36); Bilirubin,Total 0.3 mg/dL (0.2-1.3); Blood Urea Nitrogen 15 mg/dL (7-17); Calcium 8.6 mg/dL (8.4-10.2); Carbon Dioxide 27 mmol/L (22-30); Chloride 104 mmol/L (98-107); Estimated CRCL calculation 106 ml/min; Estimated Glomerular Filt Rate > 60; Glucose 95 mg/dL (65-110); Lipase 172 U/L (23-300); Potassium 3.5 mmol/L (3.4-5.0); Sodium 135 mmol/L (137-145)
[2022-05-21 13:58] LABS: Appearance Urine Clear (Clear); Bilirubin Urine Negative (Negative); Blood Urine Negative (Negative); Color Urine Yellow (Yellow); Glucose Urine UA Negative (Negative); Ketones Urine Negative (Negative); Leukocyte Esterase Ur Negative LEU/UL (Negative); Nitrate Urine Negative (Negative); Protein Urine Negative (Negative); Specific Grav Ur 1.025 (1.001-1.035); Urobilinogen Urine 0.2 mg/dL (<2.0)
[2022-05-21 14:04] LABS: Add Urine Microscopic? YES; Mucus Urine Rare /lpf; RBC Urine 0-2 /hpf (0-2); Squamous Epithelial Cell Urine Rare /hpf (Few); WBC Urine 0-3 /hpf
--- NOTE | 2022-05-21 16:10 | ED.BACK ---
HPI - Back Pain/Injury General Chief Complaint: Back Pain/Injury Stated Complaint: back pain, rule out kidney stone Time Seen by Provider: 05/21/22 13:55 History of Present Illness HPI Narrative: Patient is a 41-year-old female with a history of GERD presenting with left flank pain. Patient states that for the last week she has had lower back pain that is most severe on the left side. States that she went to urgent care about a week ago and was prescribed steroids and ibuprofen. States that she was told at that time that there was blood in her urine but she did not have a kidney infection. Patient states that she has been taking steroids and ibuprofen as prescribed but continues to have significant pain. Patient followed up with her PCP earlier this week advised that she come to the ER or urgent care if her symptoms continued. Patient states that she continues to have some pain as well as constipation. States that she is urinating more frequently but it is not painful. No hematuria. No fevers or chills, headache, chest pain, shortness of breath, cough, abdominal pain, vomiting. Related Data Home Medications Medication Instructions Recorded Confirmed pantoprazole 40 mg tablet,delayed 40 mg PO DAILY 10/29/20 06/13/21 release Allergies Allergy/AdvReac Type Severity Reaction Status Date / Time No Known Allergies Allergy Verified 04/26/22 21:04 Review of Systems Review of Systems: All systems reviewed & are unremarkable except as noted in HPI and below PMFSH Past Medical History Medical History GERD (gastroesophageal reflux disease) Heart murmur Uterine bleeding Surgical History Surgical History H/O cervical biopsy Family History Family History Mother Hypertension Other Hypertension Social History Social History Smoking status: Never smoker Alcohol intake: never Exam Narrative: GENERAL: Well-appearing, well-nourished, and in no acute distress. HEAD: Normocephalic, atraumatic. EYES: PERRLA and EOMI. ENT: Nares clear, no rhinorrhea or epistaxis. Mucous membranes moist. NECK: Supple. CHEST: Clear to auscultation. No respiratory distress. HEART: Regular rate and rhythm. No murmur heard. Normal peripheral pulses. ABDOMEN: Soft, nontender, nondistended, normal active bowel sounds. + mild L flank tenderness BACK: no midline tenderness EXTREMITIES: Normal range of motion. No edema. SKIN: Warm, dry, no rash. NEURO: No focal deficits. Alert and oriented x3. PSYCH: Normal mood and affect. Course Vital Signs Vital signs: Vital Signs Temperature 97.5 F L 05/21/22 13:24 Pulse Rate 69 05/21/22 13:24 Respiratory Rate 16 05/21/22 13:24 Blood Pressure 134/73 05/21/22 13:24 Pulse Oximetry 100 05/21/22 13:24 Oxygen Delivery Room Air 05/21/22 13:24 Temperature 97.5 F L 05/21/22 13:24 Pulse Rate 69 05/21/22 13:24 Respiratory Rate 16 05/21/22 13:24 Blood Pressure 134/73 05/21/22 13:24 Pulse Oximetry 100 05/21/22 13:24 Oxygen Delivery Room Air 05/21/22 13:24 MDM - Back Pain/Injury MDM Narrative Medical decision making narrative: Patient is a 41-year-old female presenting with left flank pain. Vitals within normal limits. Patient is well-appearing and in no acute distress. Exam is remarkable for the above. Blood work reveals mild leukocytosis. No other acute abnormalities noted. UA shows no abnormalities. No blood or evidence of infection. CT abdomen pelvis shows no evidence of ureterolithiasis. No other acute abnormalities noted. Suspect patient's symptoms are musculoskeletal in nature. 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 Advised that she continue Tylenol and ibuprofen. Will prescribe short course of Flexeril and
[2022-05-21] MEDS: SODIUM CHLORIDE 0.9% IV 1,000 ML 999 ML IV CONT (16:22)
[2022-05-21] MEDS: KETOROLAC 30 MG/ML VIAL (*BKC) IV PUSH (17:51)
[2022-05-21 18:05] LABS: Urine Pregnancy Test Negative
[2022-05-21 18:06] LABS: Pregnancy On Board Control Positive
== END 2022-05-21 18:24 | disposition home or self-care (01) ==
PROVIDERS: Emergency Provider Emergency Medicine; PCP Hospitalist
DX: M54.50 Low back pain, unspecified (principal)
CPT/HCPCS: 36415; 74177; 80053; 81001; 81025; 83690; 85025; 96361; 96374; 96375; 99284; J0131; J1885; J7030; Q9967

== ENCOUNTER 2022-09-05 11:33 | Outpatient (CLI) | payer OTHER, SELFPAY ==
[2022-09-05 13:02] LABS: Alanine Aminotransferase 16 U/L (6-35); Aspartate Amino Transferase 39 U/L (14-36)
== END 2022-09-05 11:34 | disposition home or self-care (01) ==
PROVIDERS: PCP Hospitalist; Referring Provider Hospitalist; Visit Provider Podiatrist Foot & Ankle Surgery
DX: B35.1 Tinea unguium (principal)
CPT/HCPCS: 36415; 84450; 84460

== ENCOUNTER 2022-11-24 09:26 | Outpatient (CLI) | payer OTHER, SELFPAY ==
[2022-11-24 10:31] LABS: Alanine Aminotransferase 22 U/L (6-35); Aspartate Amino Transferase 32 U/L (14-36)
== END 2022-11-24 09:27 | disposition home or self-care (01) ==
PROVIDERS: PCP Hospitalist; Visit Provider Podiatrist Foot & Ankle Surgery
DX: B35.1 Tinea unguium (principal)
CPT/HCPCS: 36415; 84450; 84460

== ENCOUNTER 2024-07-24 01:16 | Day surgery (SDC) | payer OTHER, SELFPAY ==
[2024-07-17 09:28] VITALS: BMI 32.0
--- NOTE | 2024-07-17 09:31 | PC.NURSE ---
Report to the Outpatient Waiting Room, entrance under the green pavilion located off [facility], at time _1130_ on date _[id number]_. Planned Procedure Time: _130pm_.? Time changes happen often and if your time is changed the preop area will call you the afternoon before. - You and your visitor will be asked to self-screen and do not enter if you have any COVID symptoms. Please call surgeon if you need to reschedule. - A mask is optional within the hospital at this time. Patients may have clear liquids (water, carbonated beverages, clear teas, apple juice) until 3 hours prior to surgery with a maximum of 20 ounces. - No food from midnight until time of surgery and no smoking, or chewing Tabacco (or any form of nicotine). No chewing gum, candy or mints. Take only the following medications with a SIP of water on the morning of surgery: ___Duloxetine DO NOT STOP ANY OF YOUR OTHER PRESCRIPTION MEDICATIONS PRIOR TO SURGERY EXCEPT THE FOLLOWING Medications to discontinue per physician ____Wegovy___ Date to take last dose___Stop now until after surgery,.__ Please no make-up, nail irish, hairspray, perfume, deodorant, or body powder the day of surgery.? No jewelry (including any body piercings) or valuables the day of surgery, leave them at home.? Please take a shower or bath the night before, or the morning of, surgery with an antibacterial soap.? Wear comfortable, loose fitting clothing.? - Jewelry must be removed prior to entering the operating room.? Rings and piercings that are not removed may be cut off. - The hospital will not accept responsibility for valuables.? - Please leave all valuables, including medications, at home the day of surgery. If you are going home after surgery, a licensed snaker tractor driver must drive you home.? - NO public transportation without another adult if you receive anesthesia. - We recommend that an adult stay with you for 24 hours following discharge. - We also recommend that you do not drive, make important decision, drink alcoholic beverages, or take any drugs that were not prescribed by your health care provider for at least 24 hours after your discharge time. Hold all vitamins and supplements for 3 days per anesthesiologist. Follow any additional instructions given to you from your surgeon. Telephone instructions given to __Smitha___and asked if any additional questions and then verbalized understanding. Patient advised to call surgeon office or pre surgery nurse liaison [phone] if any additional questions
--- OUTSIDE RECORDS SUMMARY | 2024-07-24 01:19 | XMS_ITS | Referral Summary ---
Author Organization [facility] Medical Office Building B Address [address] [place] [address] Care Team Providers Care Web Sizer Name Role Phone Logan ROBERTSON MD, Vahe Dao Unavailable [phone] Michelle Salazar MD Primary Care Pro vider Paul Braden MD Unavailable Donell Akins MD Unavailable Encounters Date Type Department Care Team Description 07/19/2024 9:00 AM HR ASSISTANT Office Visit [facility] Orthopedics and Sports Medicine [address] [place] [phone] Jaimee Field NP Myalgia, other site (Primary Dx); Chronic neck and back pain; Kyphosis of cervical region, unspecified kyphosis type; Lumbar facet arthropathy; Degeneration of intervertebral disc of lumbar region with discogenic back pain; Anterolisthesis of lumbar spine; Numbness and tingling of right upper extremity 06/28/2024 Telephone [facility] Orthopedics and Sports Medicine [address] [place] [address] [place] [phone] Jaimee Field NP physical therapy 06/27/2024 4:10 PM HR ASSISTANT - 06/27/2024 11:59 PM HR ASSISTANT Hospital Encounter [facility] Diagnostic Imaging [address] [place] [phone] Pain of right hand Discharge Disposition: Discharge to home or self care 06/21/2024 3:15 PM HR ASSISTANT Telemedicine [facility] Primary Care at [address] [place] [address] Michelle Salazar MD Chest pain, unspecified type (Primary Dx); Ulnocarpal impaction syndrome, right; Medial epicondylitis of right elbow 06/17/2024 Orders Only [facility] [address] [place] [address] Medical Office Building [address], [address] [place] [phone] Sara Ibarra, CLAUDIA 06/03/2024 Orders Only [facility] [address] [place] [address] Medical Office Building [address], [address] [place] [phone] Sara Ibarra, CLAUDIA Dysphagia, unspecified type (Primary Dx) 05/30/2024 9:00 AM HR ASSISTANT - 05/30/2024 11:59 PM HR ASSISTANT Hospital Encounter [facility] [address] [place] [address] Dysphagia, unspecified type Discharge Disposition: Discharge to home or self care 05/22/2024 Orders Only [facility] [address] [place] [address] Medical Office Building [address], [address] [place] [address] Sara Ibarra, CLAUDIA 05/21/2024 Telephone [facility] [address] [place] [address] Medical Office Building [address], [address] [place] [phone] Sara Clark, CLAUDIA Scheduling Testing/Treatment 05/21/2024 Orders Only [facility] [address] [place] [address] Medical Office Building [address], [address] [place] [address] Sara Clark, CLAUDIA Dysphagia, unspecified type (Primary Dx) 05/19/2024 Orders Only [facility] [address] [place] [address] for Advanced Medicine 11th [place] [address] [place] [address] Grace Shirley Au.D. Dizziness (Primary Dx) 05/19/2024 Telephone [facility] [address] [facility] 11th [place] [address] [place] [phone] Grace Shirley Au.D. 05/17/2024 4:45 PM HR ASSISTANT Lab [facility] Lab [address] [place] [address] Vitamin D deficiency; Annual physical exam; Leukocytosis, unspecified type 05/17/2024 4:15 PM HR ASSISTANT Office Visit [facility] Primary Care at [address] [place] [address] Michelle Salazar MD Dizziness (Primary Dx); Chest pain, unspecified type; Pre-diabetes; Vitamin D deficiency; Leukocytosis, unspecified type; Annual physical exam 05/08/2024 Orders Only [facility] [address], [address] [place] [address] Sara Ibarra RN 05/02/2024 Telephone [facility] Primary Care at [address] [place] [phone] Michelle Salazar MD 05/02/2024 3:15 PM HR ASSISTANT Office Visit [facility] Family Medicine at [address] [place] [address] Jus Price MD Class 1 obesity due to excess calories without serious comorbidity with body mass index (BMI) of 33.0 to 33.9 in adult (Primary Dx) from Last 3 Months Allergies No known active allergies Medications albuterol HFA (ProAir HFA) 90 mcg/actuation inhaler Inhale 2 puffs every 4 (four) hours as needed for wheezing or shortness of breath 8.5 g [address] (CYMBALTA) 30 mg capsuleIndication s:Multiple joint pain Take 1 capsule (30 mg total) by mouth 2 (two) times a day 180 capsule 1 4 025 Active HYDROcodone-aceta minophen (NORCO) 5-325 mg per tabletIndications :Pain Take 1 tablet by mouth every 6 (six) hours as needed for pain 15 tablet 4 Active Additional Information Patient not taking.Reported on 07/19/2024 cyclobenzaprine (FLEXERIL) 5 mg tabletIndications :Cervical radiculopathy Take 1-2 tablets (5-10 mg total) by mouth nightly as needed for muscle spasms 30 tablet 4 Active semaglutide (Wegovy) 1.7 mg/0.75 mL auto-injectorIndi cations:Class 1 obesity due to excess calories without serious comorbidity with body mass index (BMI) of 33.0 to 33.9 in adult Inject 0.75 mL (1.7 mg total) under the skin every 7 days 3 mL 1 4 Active meclizine (ANTIVERT) 12.5 mg tabletIndications :Dizziness Take 1 tablet (12.5 mg total) by mouth 3 (three) times a day as needed for dizziness 30 tablet 4 Active cholecalciferol (VITAMIN D-3) 2000 unit capsuleIndication s:Vitamin D deficiency Take 1 capsule (2,000 Units total) by mouth daily 90 capsule [address] (NexIUM) 20 mg capsule Take 1 capsule (20 mg total) by mouth daily before breakfast 30 capsule 11 5 026 Active Hospital, Clinic, or Other Facility Administered Medication Ordered Dose Route Frequency Start Date End Date Status lidocaine (XYLOCAINE) 10 mg/mL (1 %) injection 3 mLIndications:Admini stration of Local Anesthesia 3 mL One-Time Injection 07/19/2024 07/19/2024 Ended triamcinolone (KENALOG) 40 mg/mL injection 120 mgIndications:Myalgi a, other site 120 mg One-Time Injection 07/19/2024 07/19/2024 Ended Active Problems Problem Noted Date Diagnosed Date Abnormal weight gain 01/23/2024 BMI 35.0-35.9,adult 01/23/2024 Dysphagia 12/22/2023 Multiple joint pain 10/10/2023 Overview (10/20/2023): 10/2023 AVISE negative US right foot/ankle (10/19/23): Grade 1 power doppler in the 5th MTP joint. Small calcaneal enthesophyte at the distal achilles insertion site. No other significant inflammatory changes appreciated on US examination. Assessment & Plan (11/10/2023 3:32 PM CDT): Has been evaluated by rheumatology, not consistent with auto-immune Continue cymbalta twice a day Recommend tylenol over ibuprofen given GERD, will prescribe topical voltaren gel instead Assessment & Plan (10/26/2023 10:10 AM CDT): A recent AVISE autoimmune antibody panel was negative with normal ESR/CRP levels and a normal TSH. A right foot/ankle US demonstrated a grade 1 pd of the 5th MTP joint with a small calcaneal enthesophyte at the distal achilles insertion. Based on her symptoms and work up she does not appear to have an autoimmune disease contributing to her symptoms at this time. As previously discussed she appears to have de Quervain's of the R wrist (although less tenderness with negative Guilherme's today) and R tennis elbow for which would recommend conservative treatment with bracing for up to 4 weeks and if no improvement then follow-up with orthopedist/physical therapy. Recommend tylenol arthritis 1300mg BID in addition to her cymbalta 30mg BID. If no reduction in joint pain after 2-3 weeks on the higher tylenol regimen she can discontinue. Would avoid NSAIDs due to history of gastric ulcer and GERD. Encouraged 15-20min of gentle stretching/yoga/exercise daily to help with joint strengthening which may reduce her pain. She is welcome to follow up in the future should she have any additional concerns. Seen with Dr. Akins. Assessment & Plan (10/10/2023 1:34 PM CDT): Ms. Khan returns for re-evaluation of continued joint pain. In the past she was thought to have a mild connective tissue disease and was encouraged to start MTX but this did not occur. Since that time she has followed up with [facility] rheumatology with +ALMAS only on lab work and unremarkable hand US. Today she is reporting right wrist, right elbow, knee and ankle pain. Her joint pain is worsened with use but present throughout the day. Knees and ankles will appear swollen but again typically worse by end of the day. Reports dyspnea with simple exertion with recent normal PFTs. On exam she has a +R wrist Guilherme test and +lateral epicondylitis of the R elbow. There is mild pitting edema of the ankles with questionable fullness in a few MTP joints bilaterally. Several tender peripheral and axial joints. Her symptoms do not sound inflammatory by nature. Likely with DeQuervain's and tennis elbow of the right upper extremity and discussed proper bracing and follow up with orthopedist if no improvement after 4 weeks. Will check an AVISE panel to see if she has developed any additional autoantibodies with her +ALMAS as well as basic labs and a TSH given fatigue, joint pain, lb gain. Encouraged use of Tylenol Arthritis and Voltaren gel. Also recommended she take 60mg cymbalta once daily as she forgets the 2nd 30mg dose. To discuss PM with her PCP for continued neck pain. To return in 2 weeks to discuss results. Seen with Dr. Akins who is assuming care of patient now that Dr. Ford has retired. Annual physical exam 09/01/2020 Assessment & Plan (11/10/2023 3:18 PM CDT): Reviewed PMH & FH Reviewed medications and supplements HCM: orders placed as needed Counseled on healthy lifestyle Assessment & Plan (09/03/2020 6:06 AM CDT): Never smoker Alcohol use: <7 drink/wk Encouraged to schedule mammogram PAP: UTD Planning : no, on control pills BP wnl PHQ Screening PHQ-2 Total Score (If total score is 3 or more points, staff should administer the PHQ-9): 0 PHQ-9 Total Score: 1 Body mass index is 35.67 kg/m . Discussed diet and exercise Reviewed labs Vaccinations UTD Tendinopathy of rotator cuff 12/03/2019 Assessment & Plan (02/11/2020 2:39 PM CDT): Due to family health issues she was unable to continue with PT after her first session. Strongly encouraged her to resume PT as she has reduced ROM of her bilateral shoulders with pain. Assessment & Plan (12/03/2019 3:19 PM CDT): Getting ready to start PHYSICAL THERAPY Class 2 obesity without seri ous comorbidity with body mass index (BMI) of 36.0 to 36.9 in adult 12/03/2019 Assessment & Plan (06/22/2020 9:22 AM HR ASSISTANT): BMI Follow-up includes: nutrition counseling and exercise counseling. Assessment & Plan (12/03/2019 3:23 PM CDT): BMI Follow-up includes: exercise counseling. GERD (gastroesophageal reflux disease) Assessment & Plan (12/25/2023 3:40 PM CDT): Continue nexium, recommend follow up with GI in regards to insurance approval Upcoming EGD Assessment & Plan (11/10/2023 3:38 PM CDT): Uncontrolled Discussed/given handout on lifestyle modification Will pursue PA for nexium Assessment & Plan (04/13/2023 6:24 PM CDT): Trial of Nexium 40 mg daily. She will call if she develops diarrhea. Assessment & Plan (09/07/2022 12:54 PM CDT): FMLA paperwork filled out Tapering down protonix Famotidine as needed Avoid NSAIDS Discussed/given handout on lifestyle modification Assessment & Plan (06/09/2022 9:58 AM HR ASSISTANT): Reviewed EGD Continue protonix Avoid NSAIDS Assessment & Plan (09/03/2020 6:09 AM CDT): EGD mild erosive esophagitis & diffuse gastritis On protonix Assessment & Plan (06/22/2020 9:19 AM HR ASSISTANT): Worsening Increase PPI to daily Schedule for EGD Assessment & Plan (10/11/2019 3:47 PM CDT): Significantly improved on PPI, continue x4w and then try tapering Assessment & Plan (09/11/2019 4:19 PM CDT): Uncontrolled on H2 antagonist so will start PPI No red flag symptoms necessitating EGD at this time Continue to monitor Resolved Problems Problem Noted Date Diagnosed Date Resolved Date Hepatitis B core antibody positive 04/10/2023 04/21/2023 Assessment & Plan (04/13/2023 6:24 PM CDT): The multiple negative studies for hepatitis-B surface antigen, an undetectable hepatitis-B viral load, and normal transaminases suggest this is a false- positive test. There is likely some cross reactivity with another protein in her blood. At this point, over 1 year later, the chance of her developing hepatitis-B is essentially zero. I gave her reassurance. There is no need to continue to check for the core IgM antibody at this point. 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 -Bilat hands: Ulnar positive variance is present otherwise unremarkable. -Bilat ankles: pes planus and mild midfoot OA. -T spine: Minimal spondylosis -C spine: Reversal of the normal cervical lordosis and mild kyphosis centered at C5-C6, which may be positional or related to muscular spasm. Right foot/ankle US (12/12/19): 1. Possible 5th MTP erosion dorsally seen only on that view. 2. The 1st medial MTP has grade 2 effusion. 3. The 2nd MTP has grade 2 effusion on examination, all of which will have to be correlated clinically. Right hand/wrist US (12/10/19): 1. Moderate synovial thickening/effusion with grade 1 power Doppler at the wrist. Moderate 2nd and 3rd PIP synovial thickening on examination which will have to be correlated clinically. Assessment & Plan (09/03/2020 6:09 AM CDT): Following with rheumatology Assessment & Plan (02/11/2020 4:09 PM CDT): Continues to experience right shoulder, bilateral elbow, upper back and bilateral ankle pain since last visit. Describes joint pain as achy but denies improvement with activity. Pt has not noticed swelling in the affected joints and denies stiffness sensation. Reports some dysphagia, hx of chest pain described as occasionally sharp and fingers turn purple in the cold but no other CTD symptoms. FH significant for cousin with multiple sclerosis. Recent serologies were positive for an ALMAS IgG 50 at a 1:320 dilution. Radiographic imaging revealed an ulnar positive variance of the bilateral hands, pes planus and mild midfoot OA of the bilateral feet, minimal spondylosis of the thoracic spine and a reversal of the normal cervical lordosis with mild kyphosis centered at C5-C6. A right hand/wrist US from 12/09 revealed moderate synovial thickening/effusion with grade 1 power doppler at the wrist as well as moderate 2nd and 3rd PIP synovial thickening. A right foot/ankle US on 12/11 showed possible 5th MTP erosion, 1st and 2nd MTP with grade 2 effusions. On exam there is moderate scattered synovitis of the hands with tenderness. Right shoulder continues to be tender over superior glenohumeral joint and bilateral shoulders with reduced IR. CDAI 28. Arthralgias, previous ultrasounds and current physical exam findings are suggestive of an undifferentiated inflammatory arthritis. Recommend initiating treatment with 10mg MTX once weekly and 1mg folic acid daily. Patient advised of the side effects of the medication, including but not limited to increased risk of infection, GI upset, increased LFTs, mouth sores, rash, diarrhea, and/or blood count abnormalities. Discussed that this medication can take upwards of 3 months before joint improvement is noticeable and the dosage will be increased at each subsequent visit until symptoms are controlled or the maximum dose of 20mg is achieved. PT was amenable to the plan. Return in 4 weeks. Sooner if needed. Labs at that time. Seen with Dr. Ford. Assessment & Plan (12/03/2019 3:20 PM CDT): Saw rheumatology Getting labs and imaging Continue to monitor Assessment & Plan (11/27/2019 4:53 PM CDT): Notes right shoulder, bilateral elbow, upper back and bilateral ankle pain ongoing for at least the past 6 months. Describes joint pain as achy but denies improvement with activity. Pt has not noticed swelling in the affected joints and denies stiffness sensation. Also notes locking sensation of left knee in certain positions - has been occurring since HS. Reports some dysphagia, hx of chest pain described as occasionally sharp and fingers turn purple in the cold but no other CTD symptoms. FH significant for cousin with multiple sclerosis. On exam there is scattered synovitis of the peripheral joints with tenderness. Pain appreciated over bilateral medial epicondyles without pain on resisted pronation/supination. Right shoulder is ttp over the posterior and superior aspects of shoulder girdle and has FROM with +Empty can and Neer's tests. Negative Natasha's of the left knee with ttp over the medial joint space bilaterally. Anterior aspect of bilateral ankles are ttp without swelling, erythema or warmth to palpation. Low suspicion for an inflammatory arthritis. However due to presence of peripheral joint synovitis will perform appropriate radiographs, serologies, and right hand and right foot/ankle US to assess the etiology of symptoms. Right shoulder is concerning for a rotator cuff injury - will give order for PT and see if there is benefit gained. Return in [address] Ford. Assessment & Plan (10/11/2019 3:45 PM CDT): Again recommend trial of glucosamine chrondrotin Also recommend 500mg tumeric TID Given previously negative work up for auto-immune, but persistent pain affecting multiple joints will refer to rheum Chronic pain of both ankles 09/11/2019 04/21/2023 Overview (12/04/2019): 11/29 labs: AVISE ALMAS IgG 50 @ 1:320 speckled Assessment & Plan (09/11/2019 4:17 PM CDT): Previously had work up with negative ALMAS, RF and CRP, also had normal XR. Will not repeat as unchanged clinically Chronic pain of both knees 09/11/2019 1 06/21/2022 Assessment & Plan (09/11/2019 4:17 PM CDT): Likely OA Will obtain XR Recommend glucosamine chondroitin OTC Given handout on PHYSICAL THERAPY exercises Chronic right-sided thoracic back pain 09/11/2019 04/21/2023 Assessment & Plan (10/11/2019 3:46 PM CDT): Continue PHYSICAL THERAPY exercises Heat as needed, advised not more than 20 minutes Flexeril as needed Assessment & Plan (09/11/2019 4:18 PM CDT): Likely muscular strain/spasm Advise supportive treatment with heat, massage and stretching PHYSICAL THERAPY exercise handout given Spasm 01/07/2015 04/21/2023 Overview (09/15/2016): Muscle spasm Rash 01/07/2015 09/10/2019 Overview (09/15/2016): Rash Immunizations Name Administration Dates Next Due Influenza, Quadrivalent, Danya l Culture-based MDCK, Preservative Free, Antibiotic Free, Intramuscular 04/13/2023 Influenza, Quadrivalent, Split, Intramuscular Influenza, Quadrivalent, Spl it, Preservative Free, Intramuscular 03/22/2022 Influenza, Trivalent, Preservative Free, Intramu scular 03/26/2024 Influenza, Unspecified 04/10/2020,04/21/2019 Pfizer SARS-CoV-2 Monovalent Vaccination (12+ Yrs) PURPLE 10/03/2020,09/12/2020 Tdap 04/29/2022,08/20/2011 Social History Tobacco Use Types Packs/Day Years Used Date Smoking Tobacco: Never Smokeless Tobacco: Never Tobacco Cessation:Counseling Given: Not Answered Alcohol Use Standard Drinks/Week Comments Yes 0 (1 standard drink = 0.6 oz pur e alcohol) AUDIT-C Answer Date Recorded Q1: How often do you have a drink containing alc ohol? Monthly or less 05/02/2024 Q2: How many drinks containi ng alcohol do you have on a typical day when you are drinking? 1 or 2 05/02/2024 Q3: How often do you have si x or more drinks on one occasion? Less than monthly 05/02/2024 PHQ-2 Answer Date Recorded PHQ-2 Total Score (If total score is 3 or more points, staff should administer the PHQ-9) 0 11/10/2023 Personal Safety Answer Date Recorded Have you ever been in or are you currently in a harmful physical or emotional relationship or is someone making you feel afraid or unsafe? 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 Not on file Not on file Not on file Last Filed Vital Signs Vital Sign Reading Time Taken Comments Blood Pressure 130/90 05/17/2024 4:00 PM HR ASSISTANT Pulse 86 05/17/2024 4:00 PM HR ASSISTANT Temperature 36.2 C (97.1 F) 05/17/2024 3:35 PM HR ASSISTANT Respiratory Rate 18 05/17/2024 3:35 PM HR ASSISTANT Oxygen Saturation 99% 05/17/2024 3:35 PM HR ASSISTANT Inhaled Oxygen Concentration - - Weight 80.7 kg (178 lb) 07/19/2024 9:17 AM HR ASSISTANT Height 157.5 cm (5' 2 ) 07/19/2024 9:17 AM HR ASSISTANT Body Mass Index 32.56 07/19/2024 9:17 AM HR ASSISTANT Plan of Treatment Not on file Procedures Procedure Name Priority Date/Time Associated Diagnosis Comments 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 1/2 MUSCLES Routine 07/19/2024 9:00 AM HR ASSISTANT Myalgia, other site XR HAND RIGHT 3 OR MORE VIEWS Schedule Routine, Read Routine (OP Routine) 06/27/2024 4:23 PM HR ASSISTANT Pain of right hand FL ESOPHAGRAM, DOUBLE CONTRAST Schedule Routine, Read Routine (OP Routine) 05/30/2024 10:27 AM HR ASSISTANT Dysphagia, unspecified type EGFR Routine 05/17/2024 4:57 PM HR ASSISTANT Annual physical exam DIFFERENTIAL AUTO Routine 05/17/2024 4:5 7 PM HR ASSISTANT Leukocytosis, unspecified type Annual physical exam CBC WITH AUTO DIFFERENTIAL Routine 05/17/2024 4:57 PM HR ASSISTANT Leukocytosis, unspecified type Annual physical exam COMPREHENSIVE METABOLIC PANEL Routine 05/17/2024 4:57 PM HR ASSISTANT Annual physical exam THYROID FUNCTION CASCADE Routine 05/17/2024 4:57 PM HR ASSISTANT Annual physical exam VITAMIN D 25 HYDROXY Routine 05/17/2024 4:57 PM HR ASSISTANT Vitamin D deficiency POCT HEMOGLOBIN A1C Routine 05/17/2024 4 :30 PM HR ASSISTANT Pre-diabetes SCREENING MAMMOGRAM BILATERAL W MARKY Schedule Routine, Read Routine (OP Routine) 12/11/2023 4:17 PM CDT Encounter for screening mammogram for breast cancer STOOL DNA COLOGUARD Routine 11/16/2023 6:30 PM CDT Colon cancer screening HM PAP SMEAR WITH HPV Routine 07/02/2018 from Last 3 Months or Most Recently Relevant to Health Maintenance Results * 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 1/2 MUSCLES (07/19/2024 9:00 AM HR ASSISTANT) Narrative Jaimee Field NP - 07/19/2024 9:00 AM HR ASSISTANT Jaimee Field NP 07/20/2024 9:32 PM Trigger Point Injection Performed by: Jaimee Field NP Authorized by: Jaimee Field NP Consent Given by: Patient Site marked: the procedure site was marked Timeout: prior to procedure the correct patient, procedure, and site was verified Consent obtained:: Verbal Risks discussed, including, but not limited to:: Pain Alternatives discussed:: Alternative treatment Site/side marked: Yes Indications: Pain Location: R lumbar paraspinal, R cervical paraspinal and R piriformis Local anesthetic: Ethyl chloride spray Ultrasound guidance: No Needle size: 22 G Number of muscles: 1 or 2 Approach: Posterior Medications: 3 mL lidocaine 10 mg/mL (1 %); 120 mg triamcinolone 40 mg/mL Patient tolerance: Patient tolerated the procedure well with no immediate complications us Jaimee Field GRINDING WHEEL INSPECTOR IN CLINIC/BEDSIDE ORDERABLE S Final Result * XR Hand Right 3+ Vw (06/27/2024 4:23 PM HR ASSISTANT) Anatomical Region Laterality Modality Upper Extremities, Hand Right Computed Radiography 06/30/2024 8:12 AM HR ASSISTANT Narrative 06/30/2024 8:14 AM HR ASSISTANT EXAM DESCRIPTION: XR HAND RIGHT 3 OR MORE VIEWS REASON FOR STUDY: Hand pain, nontraumatic Right hand pain with difficulty gripping thing x 1.5 weeks. Nki FINDINGS: Three views submitted with comparison 12/10/2019. No acute fractures. Ulnar positive variance is present with changes of ulnocarpal impaction. The joint spaces are otherwise normal. IMPRESSION: Right ulnar positive variance with changes of ulnocarpal impaction. THIS IS AN ELECTRONICALLY VERIFIED FINAL REPORT 06/30/2024 8:14 AM - Electronically signed by Bryce Cordova M.D. MF: MATT Report ID: [id number] Reading Location: [id number] Procedure Note Bryce Cordova MD - 06/30/2024 EXAM DESCRIPTION: XR HAND RIGHT 3 OR MORE VIEWS REASON FOR STUDY: Hand pain, nontraumatic Right hand pain with difficulty gripping thing x 1.5 weeks. Nki FINDINGS: Three views submitted with comparison 12/10/2019. No acute fractures. Ulnar positive variance is present with changes of ulnocarpal impaction. The joint spaces are otherwise normal. IMPRESSION: Right ulnar positive variance with changes of ulnocarpal impaction. THIS IS AN ELECTRONICALLY VERIFIED FINAL REPORT 06/30/2024 8:14 AM - Electronically signed by Bryce Cordova M.D. MF: MATT Report ID: [id number] Reading Location: [id number] Michelle Salazar MD IMG XR PROCEDURES Final Result * FL Esophagram, Double Contrast (05/30/2024 10:27 AM HR ASSISTANT) Anatomical Region Laterality Modality Body N/A Radio Fluoroscop y 05/30/2024 11:2 2 AM HR ASSISTANT Impressions 05/30/2024 11:33 AM HR ASSISTANT Normal esophagram. Dictated by: Vanessa Charlton M.D. The radiology attending physician has personally reviewed this study, and had reviewed and/or edited this written report and agrees with it. Electronically signed by: Sana Shanks M.D. Narrative 05/30/2024 11:33 AM HR ASSISTANT EXAMINATION: DOUBLE CONTRAST BARIUM ESOPHAGRAM HISTORY: 43-year-old female with upper abdominal pain and dysphagia, prior history of esophageal ulcer treated with PPI. Recently underwent esophagogastroduodenoscopy which did not demonstrate abnormal findings. TECHNIQUE: The patient was given barium and effervescent crystals to drink, and multiple fluoroscopic and conventional overhead radiographs were obtained. FINDINGS: Esophageal motility is normal. There is passage of contrast through a normal gastroesophageal junction. There is no hiatal hernia. The visualized portions of the stomach are normal. No reflux was elicited with provocative maneuvers. Procedure Note Sana Shanks MD - 05/30/2024 EXAMINATION: DOUBLE CONTRAST BARIUM ESOPHAGRAM HISTORY: 43-year-old female with upper abdominal pain and dysphagia, prior history of esophageal ulcer treated with PPI. Recently underwent esophagogastroduodenoscopy which did not demonstrate abnormal findings. TECHNIQUE: The patient was given barium and effervescent crystals to drink, and multiple fluoroscopic and conventional overhead radiographs were obtained. FINDINGS: Esophageal motility is normal. There is passage of contrast through a normal gastroesophageal junction. There is no hiatal hernia. The visualized portions of the stomach are normal. No reflux was elicited with provocative maneuvers. IMPRESSION: Normal esophagram. Dictated by: Vanessa Charlton M.D. The radiology attending physician has personally reviewed this study, and had reviewed and/or edited this written report and agrees with it. Electronically signed by: Sana Shanks M.D. us Huy Real MD IMG FLUOROSCOPY PROCE DURES Final Result * eGFR (05/17/2024 4:57 PM HR ASSISTANT) eGFR >90 >=60 mL/min/1. 73 m2 Comment: Interpretive Data Reference Interval Normal >/= 90 mL/min/1.73m2 Mildly decreased* 60 - 89 mL/min/1.73m2 Mildly to moderately decreased 45 - 59 mL/min/1.73m2 Moderately to severely decreased 30 - 44 mL/min/1.73m2 Severely decreased 15 - 29 mL/min/1.73m2 Kidney Failure < 15 mL/min/1.73m2 *Relative to young adult level Estimated glomerular filtration rate is determined by the 2020 CKD-EPI equation recommended by the National Kidney Foundation (A Unifying Approach to GFR Estimation: Recommendations of the NKF-ASK Task Force on Reassessing the Inclusion of Race in Diagnosing Kidney Disease, JASN 202). The CKD-EPI equation should not be used for patients with unstable renal function and has not been validated in children and those over 70. Current interpretive data was last reviewed 2021. Testing performed by: [facility], [address] [place] [address]., [id number] Blood 05/17/2024 4:57 PM HR ASSISTANT 05/17/2024 5:03 PM HR ASSISTANT us Michelle Salazar MD LAB BLOOD ORDERAB LES Final Result [facility] [address] [facility] [place] [address] * (ABNORMAL) Differential, auto (05/17/2024 4:57 PM HR ASSISTANT) Neutrophil abs 7.2(H) 1.5 - 6.5 K/cumm Comment:Testing performed by : [address], [place]., [address] Imm gran abs 0.0 0.0 - 0.1 K/cumm [facility] Comment:Testing performed by : [address], [place]., [address] Lymphocyte abs 3.1 0.8 - 3.3 K/cumm [facility] Comment:Testing performed by : [address], [place]., [address] Monocyte abs 0.5 0.2 - 0.8 K/cumm [facility] Comment:Testing performed by : [address], [place]., [address] Eosinophil abs 0.1 0.0 - 0.5 K/cumm [facility] Comment:Testing performed by : [address] [address] Basophil abs 0.0 0.0 - 0.1 K/cumm [facility] Comment:Testing performed by : [address] [address] Neutrophil pct 65.5 % [facility] Comment: Interpretive Data Percent cell count reference ranges are not reported, since discordance with absolute values may lead to misinterpretation of CBC data. Current Interpretive Data was last revised on 2017. Testing performed by: [address] [address] Imm gran pct 0.4 % [facility] Comment: Interpretive Data Percent cell count reference ranges are not reported, since discordance with absolute values may lead to misinterpretation of CBC data. Current Interpretive Data was last revised on 2017. Testing performed by: [address] [address] Lymphocyte pct 28.4 % [facility] Comment: Interpretive Data Percent cell count reference ranges are not reported, since discordance with absolute values may lead to misinterpretation of CBC data. Current Interpretive Data was last revised on 2017. Testing performed by: [address] [address] Monocyte pct 4.8 % [facility] Comment: Interpretive Data Percent cell count reference ranges are not reported, since discordance with absolute values may lead to misinterpretation of CBC data. Current Interpretive Data was last revised on 2017. Testing performed by: [address] [address] Eosinophil pct 0.6 % [facility] Comment: Interpretive Data Percent cell count reference ranges are not reported, since discordance with absolute values may lead to misinterpretation of CBC data. Current Interpretive Data was last revised on 2017. Testing performed by: [address] [address] Basophil pct 0.3 % [facility] Comment: Interpretive Data Percent cell count reference ranges are not reported, since discordance with absolute values may lead to misinterpretation of CBC data. Current Interpretive Data was last revised on 2017. Testing performed by: [address] [address] Blood 05/17/2024 4:57 PM HR ASSISTANT 05/17/2024 5:04 PM HR ASSISTANT us Michelle Salazar MD LAB BLOOD ORDERAB LES Final Result [address] [employer] [place] [address] * Thyroid Function [place] (05/17/2024 4:57 PM HR ASSISTANT) TSH 0.50 0.30 - 4.20 mcIUnit/mL Comment:Testing performed by : [address] [address] Blood 05/17/2024 4:57 PM HR ASSISTANT 05/17/2024 5:03 PM HR ASSISTANT Michelle Salazar MD LAB BLOOD ORDERAB LES Final Result SANDY [address] [place] [address] * (ABNORMAL) CBC with auto differential (05/17/2024 4:57 PM HR ASSISTANT) [facility] WBC 11.0(H) 3.8 - 9.9 K/cumm Comment:Testing performed by : [address], [address] Hgb 13.8 11.9 - 15.5 g/dL S[facility]Y Comment:Testing performed by : [address], [address] Hct 42.2 35.6 - 45.5 % [facility] Comment:Testing performed by : [address], [address] Plt 347 150 - 400 K/cumm [facility] Comment:Testing performed by : [address], [address] MPV 10.3 9.1 - 12.3 fL [facility] Comment:Testing performed by : [address], [address] RBC 4.67 3.90 - 5.20 M/cumm [facility] Comment:Testing performed by : [address], [address] MCV 90.4 81.3 - 96.4 fL [facility] Comment:Testing performed by : [address], [address] MCH 29.6 27.1 - 33.3 pg S[facility]Y Comment:Testing performed by : [address], [address] MCHC 32.7 32.3 - 35.7 g/dL S[facility]Y Comment:Testing performed by : [address], [address] RDW CV 13.8 11.1 - 14.9 % [facility] Comment:Testing performed by : [address], [address] RDW SD 45.6 35.7 - 48.1 fL S[facility]Y Comment:Testing performed by : [address], [address] NRBC abs 0.00 0.00 - 0.01 K/cumm [facility] Comment:Testing performed by : [address] [address] Blood 05/17/2024 4:57 PM HR ASSISTANT 05/17/2024 5:04 PM HR ASSISTANT Michelle Salazar MD LAB BLOOD ORDERAB LES Final Result Performing Organization Address City/[facility] Co de Phone Number [address] [address] * (ABNORMAL) Vitamin D 25 hydroxy (05/17/2024 4:57 PM HR ASSISTANT) Pathologist [facility] Vitamin D 25-OH 11.0(L) 30.0 - 80.0 ng/mL Blood 05/17/2024 4:57 PM HR ASSISTANT 05/17/2024 8:40 PM HR ASSISTANT Michelle Salazar MD LAB BLOOD ORDERAB LES Final Result Performing Organization Address [facility] de Phone Number [address] [address] * Comprehensive metabolic panel (05/17/2024 4:57 PM HR ASSISTANT) [facility] Sodium 139 135 - 145 mmol/L Comment:Testing performed by : [address] [address] Potassium, pl 4.3 3.3 - 4.9 mmol/L S[facility]Y Comment:Testing performed by : [address] [address] Chloride 102 97 - 110 mmol/L S[facility]Y Comment:Testing performed by : [address] [address] CO2 27 22 - 32 mmol/L S[facility]Y Comment:Testing performed by : [address] [address] Anion gap 10 2 - 15 mmol/L S[facility]Y Comment:Testing performed by : [address] [address] BUN 11 6 - 25 mg/dL SANDY Comment:Testing performed by : [address] [place] [address] Creatinine 0.60 0.60 - 1.10 mg/dL S[facility]Y Comment:Testing performed by : [address] [address] Glucose 98 70 - 199 mg/dL SANDY Comment: Interpretive Data Fasting glucose >/= 126 mg/dl is diagnostic for diabetes. Fasting is defined as no caloric intake for at least 8 hours. Fasting glucose between 100 mg/dl to 125 mg/dl is diagnostic of prediabetes. In a patient with classic symptoms of hyperglycemia or hyperglycemic crisis, a random glucose >/= 200 mg/dl is diagnostic for diabetes. In the absence of unequivocal hyperglycemia, results should be confirmed by repeat testing. The classification and Diagnosis of Diabetes Diabetes Care 202; 46: S19-S40. Current interpretive data was last revised 2022. Testing performed by: [address] [address] Calcium 10.0 8.5 - 10.3 mg/dL [facility]Y Comment:Testing performed by : [address] [address] Bilirubin, total 0.2 0.1 - 1.2 mg/dL [facility] Comment:Testing performed by : [address] [address] Protein, pl 7.4 6.5 - 8.5 g/dL [facility] Comment:Testing performed by : [address] [address] Albumin 4.1 3.5 - 5.0 g/dL [facility] Comment:Testing performed by : [address] [address] Alk phos 56 40 - 130 Units/L [facility] Comment:Testing performed by : [address] [address] ALT 20 7 - 45 Units/L [facility] Comment:Testing performed by : [address] [address] AST 17 10 - 45 Units/L [facility] Comment:Testing performed by : [address] [address] Blood 05/17/2024 4:57 PM HR ASSISTANT 05/17/2024 5:03 PM HR ASSISTANT us Michelle Salazar MD LAB BLOOD ORDERAB LES Final Result S[facility]Y [facility] [address] [facility] [place] [address] * POCT hemoglobin A1c (05/17/2024 4:30 PM HR ASSISTANT) Hemoglobin A1C, POC 5.7 4.0 - 5.6 % Blood 05/17/2024 4:30 PM HR ASSISTANT us Michelle Salazar MD POINT OF CARE TRISTA T ORDERABLES Final Result * Screening Mammogram Bilateral W Marky (12/11/2023 4:17 PM CDT) Anatomical Region Laterality Modality Breast Bilateral Mammography Impressions 12/12/2023 7:41 AM CDT BI-RADS ATLAS category (overall): 1 - Negative There is no mammographic evidence of malignancy. A 1 year screening mammogram is recommended. The patient has been or will be contacted. We recommend annual screening mammography for women at average risk of breast cancer beginning at age 40, based on guidelines of the [employer] (ACR Practice Parameter for the Performance of Screening and Diagnostic Mammography) and [employer]. For women with and elevated risk of breast cancer, please refer to the ACR Practice Parameter for specific screening recommendations. The patient will be entered into a reminder system with a target due date of 1 year for her next screening exam. Narrative 12/12/2023 7:41 AM CDT Screening Mammogram Bilateral W Marky: 12/11/23 The study was acquired using full field digital technology and interpreted from soft copy. 2D digital mammographic views, as well as 3D digital tomosynthesis were performed in the CC and MLO projections. CLINICAL: Encounter for screening mammogram for breast cancer. No relevant medical history has been documented for this patient. No known family history of breast cancer. COMPARISONS: 10/27/2022 Screening Mammogram Bilateral W Marky 09/09/2021 Screening Mammogram Bilateral W Marky 09/12/2020 Breast Imaging Screening Outside Reference 10/11/2019 Breast Imaging Diagnostic Outside Reference 09/10/2019 Breast Imaging Screening Outside Reference BREAST TISSUE: The breasts have scattered areas of fibroglandular density. FINDINGS: There is no new suspicious finding in either breast on mammogram. Michelle Salazar MD IM MAMMO PROCEDU RES Final Result * Stool DNA - Cologuard (11/16/2023 6:30 PM CDT) Stool DNA - Cologuard Negative Negative [facility] (CLIA #:[id number]) Comment: NEGATIVE TEST RESULT. A negative Cologuard result indicates a low likelihood that a colorectal cancer (CRC) or advanced adenoma (adenomatous polyps with more advanced pre-malignant features) is present. The chance that a person with a negative Cologuard test has a colorectal cancer is less than 1 in 1500 (negative predictive value >99.9%) or has an advanced adenoma is less than 5.3% (negative predictive value 94.7%). These data are based on a prospective cross-sectional study of 10,000 individuals at average risk for colorectal cancer who were screened with both Cologuard and colonoscopy. (Mirta Burnette et al, N Engl J Med 2014;370(14):4647-3256) The normal value (reference range) for this assay is negative. COLOGUARD RE-SCREENING RECOMMENDATION: Periodic colorectal cancer screening is an important part of preventive healthcare for asymptomatic individuals at average risk for colorectal cancer. Following a negative Cologuard result, the [employer] and U.S. Multi-Society Task Force screening guidelines recommend a Cologuard re-screening interval of 3 years. References: [employer] Guideline for Colorectal Cancer Screening: https://www.cancer.org/cancer/xzsjr-iussev-ayxzne/rixxonunm-amrdjuwdc-ycepvzk/ac s-rec ommendations.html.; Timoteo NAVAS, Janel FENG, Rosana TREVINO, Colorectal Cancer Screening: Recommendations for Physicians and Patients from the U.S. Multi-Society Task Force on Colorectal Cancer Screening , Am J Gastroenterology 2017; 112:6142-9588. TEST DESCRIPTION: Composite algorithmic analysis of stool DNA-biomarkers with hemoglobin immunoassay. Quantitative values of individual biomarkers are not reportable and are not associated with individual biomarker result reference ranges. Cologuard is intended for colorectal cancer screening of adults of either sex, 45 years or older, who are at average-risk for colorectal cancer (CRC). Cologuard has been approved for use by the U.S. FDA. The performance of Cologuard was established in a cross sectional study of average-risk adults aged 50-84. Cologuard performance in patients ages 45 to 49 years was estimated by sub-group analysis of near-age groups. Colonoscopies performed for a positive result may find as the most clinically significant lesion: colorectal cancer [4.0%], advanced adenoma (including sessile serrated polyps greater than or equal to 1cm diameter) [20%] or non- advanced adenoma [31%]; or no colorectal neoplasia [45%]. These estimates are derived from a prospective cross-sectional screening study of 10,000 individuals at average risk for colorectal cancer who were screened with both Cologuard and colonoscopy. (Mirta Feliz al, N Engl J Med 2014;370(14):3575-4696.) Cologuard may produce a false negative or false positive result (no colorectal cancer or precancerous polyp present at colonoscopy follow up). A negative Cologuard test result does not guarantee the absence of CRC or advanced adenoma (pre-cancer). The current Cologuard screening interval is every 3 years. ([employer] and U.S. Multi-Society Task Force). Cologuard performance data in a 10,000 patient pivotal study using colonoscopy as the reference method can be accessed at the following location: www.[employer].GloNav/results. Additional description of the Cologuard test process, warnings and precautions can be found at www.[employer].GloNav. Stool 11/16/2023 6:30 PM CDT 11/18/2023 1:35 PM CDT us Michelle Salazar MD LAB BODY FLUIDS A ND STOOLS ORDERABLES Final Result [facility] (CLIA #:[id number]) [address] [place] [address] * HM PAP SMEAR WITH HPV (07/02/2018) 07/02/2018 us Historical Provider HEALTH MAINTENANCE Final Result from Last 3 Months or Most Recently Relevant to Health Maintenance Insurance [facility] [id number] [employer] PPO POS [facility] [id number] Member Subscriber Plan / Payer (Ef fective 2020-Present) Name:Smitha Khan Member ID:[id number] Relation to Subscriber:Self Name:Smitha Khan Subscriber ID:[id number] Payer ID:[id number] Type:[employer] HMO/PPO Address: [place] [id number] [facility] [id number] Advance Directives For more information, please contact: [phone] * Full Code (Latest Code Status on File) Date Activated Date Inactivated Comments 01/08/2024 2:16 PM 01/08/2024 8:45 PM * Full Code Date Activated Date Inactivated Comments 08/12/2022 8:20 AM 08/12/2022 1:51 PM * Full Code Date Activated Date Inactivated Comments 06/02/2022 8:38 AM 06/02/2022 1:13 PM Care Teams Web Sizer Relationship Specialty Start Date End Date Michelle Salazar MD [address] [place] [address] PCP - General 03/31/20 Vahe Ford III, MD [address] [place] [address] Consulting Physician Rheumatology 10/18/19 Paul Braden MD [address] [facility] [place] [address] Consulting Physician Pain Management 11/01/22 Donell Akins MD [address] [place] [address] Consulting Physician Rheumatology 10/26/23
--- OUTSIDE RECORDS SUMMARY | 2024-07-24 01:19 | XMS_ITS | Clinical Summary ---
Author Organization [facility] Medical Office Building B Address [address] [place] [address] Care Team Providers Care Mattress Stuffer Name Role Phone Logan ROBERTSON MD, Vahe Dao Unavailable Michelle Salazar MD Primary Care Pro vider Paul Braden MD Unavailable Donell Akins MD Unavailable [phone] Allergies No known active allergies Medications albuterol [...] Plan (10/26/2023 10:10 AM CDT): A recent [facility] autoimmune antibody panel was negative with normal [...] that [facility] only on lab work [...] 12/03/2019 Assessment & Plan (06/22/2020 9:22 AM DIRECTOR VOLUNTEER SERVICES): BMI Follow-up includes: nutrition counseling and exercise [...] modification Assessment & Plan (06/09/2022 9:58 AM DIRECTOR VOLUNTEER SERVICES): Reviewed EGD Continue protonix Avoid NSAIDS Assessment & Plan (09/03/2020 6:09 AM CDT): EGD mild erosive esophagitis & diffuse gastritis On protonix Assessment & Plan (06/22/2020 9:19 AM DIRECTOR VOLUNTEER SERVICES): Worsening Increase PPI to daily Schedule for [...] this point. Shortness of breath 10/03/2022 04/21/20 Gastric ulcer without hemorr jeanne or perforation 07/14/2022 04/13/2023 Overview (07/14/2022): Added automatically from request for surgery [id number] Irregular menses 06/22/2020 04/21/2023 Assessment & Plan (06/22/2020 9:23 AM DIRECTOR VOLUNTEER SERVICES): Following with gynecology, encouraged to restart control pills Undifferentiated inflammator y arthritis (CMS/HCC) 10/11/2019 04/21/2023 Overview (02/10/2020): 11/29 labs: AVISE [...] spasm Rash 01/07/2015 09/10/2019 Overview (09/15/2016): Rash Encounters Date Type Department Care Team Description 07/19/2024 9:00 AM DIRECTOR VOLUNTEER SERVICES Office Visit [facility] [address] [place] [phone] Jaimee Field NP Myalgia, other site (Primary Dx); Chronic neck and back pain; Kyphosis of cervical region, unspecified kyphosis type; Lumbar facet arthropathy; Degeneration of intervertebral disc of lumbar region with discogenic back pain; Anterolisthesis of lumbar spine; Numbness and tingling of right upper extremity 06/28/2024 Telephone [facility] [address] [place] [phone] Jaimee Field NP physical therapy 06/27/2024 4:10 PM DIRECTOR VOLUNTEER SERVICES - 06/27/2024 11:59 PM DIRECTOR VOLUNTEER SERVICES Hospital Encounter [facility] [address] [place] [address] Pain of right hand Discharge Disposition: Discharge to home or self care 06/21/2024 3:15 PM DIRECTOR VOLUNTEER SERVICES Telemedicine [facility] [place] [address] [facility] [address] [place] [phone] Michelle Salazar MD Chest pain, unspecified type (Primary Dx); Ulnocarpal impaction syndrome, right; Medial epicondylitis of right elbow 06/17/2024 Orders Only [facility] [address] [place] [address] Medical Office Building [address], [address] [place] [address] Sara Ibarra RN 06/03/2024 Orders Only [facility] [address] [place] [address] Medical Office Building [address], [address] [place] [address] Sara Ibarra, CLAUDIA Dysphagia, unspecified type (Primary Dx) 05/30/2024 9:00 AM DIRECTOR VOLUNTEER SERVICES - 05/30/2024 11:59 PM DIRECTOR VOLUNTEER SERVICES Hospital Encounter [facility] [address] [place] [address] Dysphagia, unspecified type Discharge Disposition: Discharge to home or self care 05/22/2024 Orders Only [facility] [address] [place] [address] Medical Office Building [address], [address] [place] [address] Sara Ibarra RN 05/21/2024 Telephone [facility] [address] [place] [address] Medical Office Building [address], [address] [place] [address] Sara Clark RN Scheduling Testing/Treatment 05/21/2024 Orders Only [facility] [address] [place] [address] Medical Office Building [address], [address] [place] [address] Sara Clark, CLAUDIA Dysphagia, unspecified type (Primary Dx) 05/19/2024 Orders Only [facility] [address] [place] [address] Advanced Medicine 11th [place] [address] [place] [address] Grcae Shirley Au.D. Dizziness (Primary Dx) 05/19/2024 Telephone [facility] [address] [place] [address] Advanced Medicine [address]th [place] [address] [place] [address] Grace Shirley Au.D. 05/17/2024 4:45 PM DIRECTOR VOLUNTEER SERVICES Lab [facility] [address] [place] [address] Vitamin D deficiency; Annual physical exam; Leukocytosis, unspecified type 05/17/2024 4:15 PM DIRECTOR VOLUNTEER SERVICES Office Visit [facility] at [address] [place] [phone] Michelle Salazar MD Dizziness (Primary Dx); Chest pain, unspecified type; Pre-diabetes; Vitamin D deficiency; Leukocytosis, unspecified type; Annual physical exam 05/08/2024 Orders Only [facility] [address] [place] [address] Medical Office Building [address], [address] [place] [address] Sara Ibarra RN 05/02/2024 3:15 PM DIRECTOR VOLUNTEER SERVICES Office Visit [facility] at [address] [place] [address] Jus Price MD Class 1 obesity due to excess calories without serious comorbidity with body mass index (BMI) of 33.0 to 33.9 in adult (Primary Dx) 05/02/2024 Telephone [facility] at [address] [place] [phone] Michelle Salazar MD from Last 3 Months Immunizations Name Administration Dates Next Due Influenza, Quadrivalent, Danya l Culture-based MDCK, Preservative Free, Antibiotic Free, Intramuscular 04/13/2023 Influenza, Quadrivalent, Split, Intramuscular Influenza, Quadrivalent, Spl it, Preservative Free, Intramuscular 03/22/2022 Influenza, Trivalent, Preservative Free, Intramu scular 03/26/2024 Influenza, Unspecified 04/10/2020,04/21/2019 Pfizer SARS-CoV-2 Monovalent Vaccination (12+ Yrs) PURPLE 10/03/2020,09/12/2020 Tdap 04/29/2022,08/20/2011 Surgical History Surgery Date Site/Laterality Comments UPPER GASTROINTESTINAL ENDOSCOPY WISDOM TOOTH EXTRACTION Medical History Medical History Date Comments GERD (gastroesophageal reflux disease) Chest pain Shortness of breath Lumbar facet arthropathy Protrusion of lumbar interve rtebral disc Peptic ulceration Anterolisthesis of lumbar sp ine, minimal L4 on L5 09/05/2022 Arthritis 05/2023 Neuromuscular disorder (HCC) 05/2023 Gastric ulcer without hemorr jeanne or perforation 07/14/2022 Added automatically from [facility] for surgery [id number] Family History Medical History Relation Name Comments No Known Problems Father Cancer Maternal Grandfather Jonathan Patel Alzheimer's disease Mother Torrie Patel Arthritis Mother Torrie Patel Clotting disorder Mother Torrie Patel Diabetes Mother Torrie Patel Kidney disease Mother Torrie Patel Memory loss Mother Torrie Patel Mental illness Mother Torrie Patel Cancer Other 1 Family history of Cancer -; Diabetes Other 2 Family history of Diabetes mellitus; Relation Name Status Comments Father Maternal Grandfather Jonathan Patel Mother Torrie Patel Alive Other 1 Other 2 Social History Tobacco Use Types Packs/Day Years [...] on file Legal Sex Female 10:55 AM DIRECTOR VOLUNTEER SERVICES Gender Identity Female 10/08/2020 8:14 PM CDT Sexual Orientation Not on file 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 Not on file Not on file Not on file Obstetrics History Para Term AB IAB SAB Ectopic Multiple Livin g Live Births 2 2 2 Date Outcome GA Total Labor Labor/2nd/3rd Weight Sex Type Anes PTL Malika A1 A5 Name Clin Term Term Last Filed Vital Signs Vital Sign Reading Time Taken Comments Blood Pressure 130/90 05/17/2024 4:00 PM DIRECTOR VOLUNTEER SERVICES Pulse 86 05/17/2024 4:00 PM DIRECTOR VOLUNTEER SERVICES Temperature 36.2 C (97.1 F) 05/17/2024 3:35 PM DIRECTOR VOLUNTEER SERVICES Respiratory Rate 18 05/17/2024 3:35 PM DIRECTOR VOLUNTEER SERVICES Oxygen Saturation 99% 05/17/2024 3:35 PM DIRECTOR VOLUNTEER SERVICES Inhaled Oxygen Concentration - - Weight 80.7 kg (178 lb) 07/19/2024 9:17 AM DIRECTOR VOLUNTEER SERVICES Height 157.5 cm (5' 2 ) 07/19/2024 9:17 AM DIRECTOR VOLUNTEER SERVICES Body Mass Index 32.56 07/19/2024 9:17 AM DIRECTOR VOLUNTEER SERVICES Plan of Treatment Health Maintenance Due Date Last Done Comments Cervical Cancer Screening 07/02/2023 07/02/2018 Covid-19 Vaccine ( season) 2024 06/01/2021, 10/03/2020, 09/12/2020 Depression Screening 11/09/2024 11/10/2023, 11/10/2023, 07/25/2023, Additional history exists Regular Well Visit/Exam 18-64 11/09/2024 11/10/2023, 09/01/2020 Breast Cancer Screening-Mammogram 12/10/2024 12/11/2023, 10/27/2022, 09/09/2021, Additional history exists Colon Cancer Screening-DNA Stool 11/15/2026 11/16/2023 DTaP/Tdap/Td Vaccine (3 - Td or Tdap) 04/29/2032 04/29/2022, 08/20/2011 Hepatitis B Screening Completed 01/02/2023 Hepatitis C Screening Completed 01/02/2023 Influenza Vaccine Completed 03/26/2024, , 03/22/2022, Additional history exists HPV Vaccines Aged Out No longer eligi ble based on patient's age to complete this topic Pneumococcal vaccine <65 Aged Out No longer eligible based on patient's age to complete this topic Procedures Procedure Name Priority Date/Time Associated Diagnosis Comments WI INJECTION SINGLE/IV RN TRIGGER POINT 1/2 MUSCLES Routine 07/19/2024 9:00 AM DIRECTOR VOLUNTEER SERVICES Myalgia, other site XR HAND RIGHT 3 OR MORE VIEWS Schedule Routine, Read Routine (OP Routine) 06/27/2024 4:23 PM DIRECTOR VOLUNTEER SERVICES Pain of right hand FL ESOPHAGRAM, DOUBLE CONTRAST Schedule Routine, Read Routine (OP Routine) 05/30/2024 10:27 AM DIRECTOR VOLUNTEER SERVICES Dysphagia, unspecified type EGFR Routine 05/17/2024 4:57 PM DIRECTOR VOLUNTEER SERVICES Annual physical exam DIFFERENTIAL AUTO Routine 05/17/2024 4:5 7 PM DIRECTOR VOLUNTEER SERVICES Leukocytosis, unspecified type Annual physical exam CBC WITH AUTO DIFFERENTIAL Routine 05/17/2024 4:57 PM DIRECTOR VOLUNTEER SERVICES Leukocytosis, unspecified type Annual physical exam COMPREHENSIVE METABOLIC PANEL Routine 05/17/2024 4:57 PM DIRECTOR VOLUNTEER SERVICES Annual physical exam THYROID FUNCTION CASCADE Routine 05/17/2024 4:57 PM DIRECTOR VOLUNTEER SERVICES Annual physical exam VITAMIN D 25 HYDROXY Routine 05/17/2024 4:57 PM DIRECTOR VOLUNTEER SERVICES Vitamin D deficiency POCT HEMOGLOBIN A1C Routine 05/17/2024 4 :30 PM DIRECTOR VOLUNTEER SERVICES Pre-diabetes SCREENING MAMMOGRAM BILATERAL W MARKY Schedule Routine, Read Routine (OP Routine) 12/11/2023 4:17 PM CDT Encounter for screening mammogram for breast cancer STOOL DNA COLOGUARD Routine 11/16/2023 6:30 PM CDT Colon cancer screening HM PAP SMEAR WITH HPV Routine 07/02/2018 from Last 3 Months or Most Recently Relevant to Health Maintenance Results * WI INJECTION SINGLE/IV RN TRIGGER POINT 1/2 MUSCLES (07/19/2024 9:00 AM DIRECTOR VOLUNTEER SERVICES) Narrative Jaimee Field NP - 07/19/2024 9:00 AM DIRECTOR VOLUNTEER SERVICES Jaimee Field NP 07/20/2024 9:32 PM Trigger [...] with no immediate complications us Jaimee Field SISAL PICKER IN CLINIC/BEDSIDE ORDERABLE S Final Result * XR Hand Right 3+ Vw (06/27/2024 4:23 PM DIRECTOR VOLUNTEER SERVICES) Anatomical Region Laterality Modality Upper Extremities, Hand Right Computed Radiography 06/30/2024 8:12 AM DIRECTOR VOLUNTEER SERVICES Narrative 06/30/2024 8:14 AM DIRECTOR VOLUNTEER SERVICES EXAM DESCRIPTION: XR HAND RIGHT 3 OR [...] Bryce Cordova M.D. MF: MATT Report ID: [id number] Reading Location: [id number] Procedure Note Bryce Cordova MD - 06/30/2024 [...] Bryce Cordova M.D. MF: MATT Report ID: [id number] Reading Location: [place] [address] Michelle Salazar MD IMG XR PROCEDURES Final Result * FL Esophagram, Double Contrast (05/30/2024 10:27 AM DIRECTOR VOLUNTEER SERVICES) Anatomical Region Laterality Modality Body N/A Radio Fluoroscop y 05/30/2024 11:2 2 AM DIRECTOR VOLUNTEER SERVICES Impressions 05/30/2024 11:33 AM DIRECTOR VOLUNTEER SERVICES Normal esophagram. Dictated by: Vanessa Charlton M.D. The radiology attending physician has personally reviewed this study, and had reviewed and/or edited this written report and agrees with it. Electronically signed by: Sana Shanks M.D. Narrative 05/30/2024 11:33 AM DIRECTOR VOLUNTEER SERVICES EXAMINATION: DOUBLE CONTRAST BARIUM ESOPHAGRAM HISTORY: 43-year-old [...] Final Result * eGFR (05/17/2024 4:57 PM DIRECTOR VOLUNTEER SERVICES) eGFR >90 >=60 mL/min/1. 73 m2 Comment: [...] was last reviewed 2021. Testing performed by: [facility], [address] [place] [address]., [address] Blood 05/17/2024 4:57 PM DIRECTOR VOLUNTEER SERVICES 05/17/2024 5:03 PM DIRECTOR VOLUNTEER SERVICES us Michelle Salazar MD LAB BLOOD ORDERAB LES Final Result SANDY [address] [facility] Department [place] [address] * (ABNORMAL) Differential, auto (05/17/2024 4:57 PM DIRECTOR VOLUNTEER SERVICES) Neutrophil abs 7.2(H) 1.5 - 6.5 K/cumm Comment:Testing performed by : [address] [address] Imm gran abs 0.0 0.0 - 0.1 K/cumm S[facility]Y Comment:Testing performed by : [address] [address] Lymphocyte abs 3.1 0.8 - 3.3 K/cumm [facility] Comment:Testing performed by : [address] [address] Monocyte abs 0.5 0.2 - 0.8 K/cumm [facility] Comment:Testing performed by : [address] [address] Eosinophil abs 0.1 0.0 - 0.5 K/cumm [facility] Comment:Testing performed by : [address] [address] Basophil abs 0.0 0.0 - 0.1 K/cumm [facility] Comment:Testing performed by : [address] [address] Neutrophil pct 65.5 % [facility] Comment: Interpretive Data Percent cell count reference ranges are not reported, since discordance with absolute values may lead to misinterpretation of CBC data. Current Interpretive Data was last revised on 2017. Testing performed by: [address] [address] Imm gran pct 0.4 % [facility] Comment: Interpretive Data Percent cell count reference ranges are not reported, since discordance with absolute values may lead to misinterpretation of CBC data. Current Interpretive Data was last revised on 2017. Testing performed by: [address] [address] Lymphocyte pct 28.4 % [facility] Comment: Interpretive Data Percent cell count reference ranges are not reported, since discordance with absolute values may lead to misinterpretation of CBC data. Current Interpretive Data was last revised on 2017. Testing performed by: [address] [address] Monocyte pct 4.8 % [facility] Comment: Interpretive Data Percent cell count reference ranges are not reported, since discordance with absolute values may lead to misinterpretation of CBC data. Current Interpretive Data was last revised on 2017. Testing performed by: [address] [address] Eosinophil pct 0.6 % [facility] Comment: Interpretive Data Percent cell count reference ranges are not reported, since discordance with absolute values may lead to misinterpretation of CBC data. Current Interpretive Data was last revised on 2017. Testing performed by: [address] [address] Basophil pct 0.3 % [facility] Comment: Interpretive Data Percent cell count reference ranges are not reported, since discordance with absolute values may lead to misinterpretation of CBC data. Current Interpretive Data was last revised on 2017. Testing performed by: [address] [address] Blood 05/17/2024 4:57 PM DIRECTOR VOLUNTEER SERVICES 05/17/2024 5:04 PM DIRECTOR VOLUNTEER SERVICES Michelle Salazar MD LAB BLOOD ORDERAB LES Final Result Performing Organization Address City/[facility]/ZIP Co de Phone Number [address] [place] [address] * Thyroid Function [place] (05/17/2024 4:57 PM DIRECTOR VOLUNTEER SERVICES) TSH 0.50 0.30 - 4.20 mcIUnit/mL Comment:Testing performed by : [address] [address] Blood 05/17/2024 4:57 PM DIRECTOR VOLUNTEER SERVICES 05/17/2024 5:03 PM DIRECTOR VOLUNTEER SERVICES Michelle Salazar MD LAB BLOOD ORDERAB LES Final Result [place] [address] [facility] Department [place] [address] * (ABNORMAL) CBC with auto differential (05/17/2024 4:57 PM DIRECTOR VOLUNTEER SERVICES) [facility] WBC 11.0(H) 3.8 - 9.9 K/cumm Comment:Testing performed by : [address] [address] Hgb 13.8 11.9 - 15.5 g/dL S[facility] Comment:Testing performed by : [address] [address] Hct 42.2 35.6 - 45.5 % [facility] Comment:Testing performed by : [address] [address] Plt 347 150 - 400 K/cumm [facility] Comment:Testing performed by : [address] [address] MPV 10.3 9.1 - 12.3 fL [facility] Comment:Testing performed by : [address] [address] RBC 4.67 3.90 - 5.20 M/cumm [facility] Comment:Testing performed by : [address] [address] MCV 90.4 81.3 - 96.4 fL [facility] Comment:Testing performed by : [address] [address] MCH 29.6 27.1 - 33.3 pg [facility] Comment:Testing performed by : [address] [address] MCHC 32.7 32.3 - 35.7 g/dL [facility] Comment:Testing performed by : [address] [address] RDW CV 13.8 11.1 - 14.9 % [facility] Comment:Testing performed by : [address] [address] RDW SD 45.6 35.7 - 48.1 fL [facility] Comment:Testing performed by : [address] [address] NRBC abs 0.00 0.00 - 0.01 K/cumm [facility] CHEN Comment:Testing performed by : [address] [address] Blood 05/17/2024 4:57 PM DIRECTOR VOLUNTEER SERVICES 05/17/2024 5:04 PM DIRECTOR VOLUNTEER SERVICES Michelle Salazar MD LAB BLOOD ORDERAB LES Final Result Performing Organization Address [facility] de Phone Number [address] [place] [address] * (ABNORMAL) Vitamin D 25 hydroxy (05/17/2024 4:57 PM DIRECTOR VOLUNTEER SERVICES) [facility] Vitamin D 25-OH 11.0(L) 30.0 - 80.0 ng/mL Blood 05/17/2024 4:57 PM DIRECTOR VOLUNTEER SERVICES 05/17/2024 8:40 PM DIRECTOR VOLUNTEER SERVICES Michelle Salazar MD LAB BLOOD ORDERAB LES Final Result Performing Organization Address [facility] de Phone Number [address] [place] [address] * Comprehensive metabolic panel (05/17/2024 4:57 PM DIRECTOR VOLUNTEER SERVICES) [facility] Sodium 139 135 - 145 mmol/L Comment:Testing performed by : [address] [address] Potassium, pl 4.3 3.3 - 4.9 mmol/L [facility] CHEN Comment:Testing performed by : [address] [address] Chloride 102 97 - 110 mmol/L S[facility] HCEN Comment:Testing performed by : [address] [address] CO2 27 22 - 32 mmol/L S[facility] CHEN Comment:Testing performed by : [address] [address] Anion gap 10 2 - 15 mmol/L [facility] CHEN Comment:Testing performed by : [address] [address] BUN 11 6 - 25 mg/dL SANDY Comment:Testing performed by : [address] [address] Creatinine 0.60 0.60 - 1.10 mg/dL S[facility] Comment:Testing performed by : [address] [address] Glucose 98 70 - 199 mg/dL SANDY [...] classification and Diagnosis of Diabetes Diabetes Care 2021; 46: S19-S40. Current interpretive data was last revised 2022. Testing performed by: [address] [address] Calcium 10.0 8.5 - 10.3 mg/dL S[facility]Y Comment:Testing performed by : [address] [address] Bilirubin, total 0.2 0.1 - 1.2 mg/dL S[facility] Comment:Testing performed by : [address] [address] Protein, pl 7.4 6.5 - 8.5 g/dL S[facility] Comment:Testing performed by : [address] [address] Albumin 4.1 3.5 - 5.0 g/dL S[facility] Comment:Testing performed by : [address] [address] Alk phos 56 40 - 130 Units/L ASNDY Comment:Testing performed by : [address] [address] ALT 20 7 - 45 Units/L S[facility]Y Comment:Testing performed by : [address] [address] AST 17 10 - 45 Units/L [facility] CHEN Comment:Testing performed by : [facility], [address] [facility], [place]., [address] Blood 05/17/2024 4:57 PM DIRECTOR VOLUNTEER SERVICES 05/17/2024 5:03 PM DIRECTOR VOLUNTEER SERVICES Michelle Salazar MD LAB BLOOD ORDERAB LES Final Result S[facility] CHEN [address] [facility] Department [place] [address] * POCT hemoglobin A1c (05/17/2024 4:30 PM DIRECTOR VOLUNTEER SERVICES) Hemoglobin A1C, POC 5.7 4.0 - 5.6 % Blood 05/17/2024 4:30 PM DIRECTOR VOLUNTEER SERVICES Michelle Salazar MD POINT OF CARE TRISTA [...] age 40, based on guidelines of the [place] [employer] (ACR Practice Parameter for the Performance of Screening and Diagnostic Mammography) and [place] [employer]. For women [...] CDT) Stool DNA - Cologuard Negative Negative [employer] (CLIA #:[id number]) Comment: NEGATIVE TEST RESULT. A negative Cologuard [...] screened with both Cologuard and colonoscopy. (Mirta Viveros. et al, N Engl J Med 2014;370(14):3223-2107) The normal value (reference range) for this assay is negative. COLOGUARD RE-SCREENING RECOMMENDATION: Periodic colorectal cancer screening is an important part of preventive healthcare for asymptomatic individuals at average risk for colorectal cancer. Following a negative Cologuard result, the [place] [employer] and U.S. Multi-Society Task Force screening guidelines recommend a Cologuard re-screening interval of 3 years. References: [place] [employer] Guideline for Colorectal Cancer Screening: https://www.cancer.org/cancer/begwd-zaijbt-bgfhjh/pkjbunacv-mlckgcjtc-ebdalzh/ac s-rec ommendations.html.; Timoteo NAVAS, Janel FENG, Rosana TREVINO, Colorectal Cancer Screening: Recommendations for Physicians and Patients from the U.S. Multi-Society Task Force on Colorectal Cancer Screening , Am J Gastroenterology 2017; 112:2029-4416. TEST DESCRIPTION: Composite algorithmic analysis of stool [...] (Mirta Feliz al, N Engl J Med 2014;370(14):0244-1439.) Cologuard may produce a false negative or false positive result (no colorectal cancer or precancerous polyp present at colonoscopy follow up). A negative Cologuard test result does not guarantee the absence of CRC or advanced adenoma (pre-cancer). The current Cologuard screening interval is every 3 years. ([place] [employer] and U.S. Multi-Society Task Force). Cologuard performance data in a 10,000 patient pivotal study using colonoscopy as the reference method can be accessed at the following location: www.[employer].[place]/results. Additional description of the Cologuard test process, warnings and precautions can be found at www.[employer].com. Stool 11/16/2023 6:30 PM CDT 11/18/2023 1:35 PM CDT Michelle Saalzar MD LAB BODY FLUIDS A ND STOOLS ORDERABLES Final Result [facility] (CLIA #:[id number]) [address] [place] [address] * HM PAP SMEAR WITH HPV (07/02/2018) 07/02/2018 Historical Provider HEALTH MAINTENANCE Final Result from Last 3 Months or Most Recently Relevant to Health Maintenance Insurance [facility] [id number] [facility] [id number] [facility] [id number] Advance Directives For more information, please contact: [phone] * Full Code (Latest Code Status on File) Date Activated Date Inactivated Comments 01/08/2024 2:16 PM 01/08/2024 8:45 PM * Full Code Date Activated Date Inactivated Comments 08/12/2022 8:20 AM 08/12/2022 1:51 PM * Full Code Date Activated Date Inactivated Comments 06/02/2022 8:38 AM 06/02/2022 1:13 PM Care Teams Mattress Stuffer Relationship Specialty Start Date End Date Michelle Salazar MD [address] [place] [address] PCP - General 03/31/20 Vahe Ford III, MD [address] [place] [address] Consulting Physician Rheumatology 10/18/19 Paul Braden MD [address] [facility] [place] [address] Consulting Physician Pain Management 11/01/22 Donell Akins MD [address] [place] [address] Consulting Physician Rheumatology 10/26/23
--- OUTSIDE RECORDS SUMMARY | 2024-07-24 01:19 | XMS_ITS | Data Portability ---
Author Organization [facility], [facility] Address [address] [place] [address] [place] [address] Care Team Providers Care Business Analyst Ecommerce Name Role Phone LIDIA BAJWA Primary Care Provider Assessment Encounter Date Assessment Date Assessment LastModified by Organization Details LastModified Time 06/18/2024 06/18/2024 Annual gynecological exam performed. Patient will come back in a year unless there are new symptoms. Not available 06/18/2024 16:10:34 Plan of Treatment Reminders Order Date Submit Date Provider Last Modified By Organization Details Last Modified Time Details Appointments SURG Hysterosc opy 2024 01:30P Etta LAURENT MD Not available Not available Not available SURG POST OP 2024 03:15P Etta LAURENT MD Not available Not available Not available Lab urinalysi s, dipstick 2023 024 [email or web address] [place], [address], [place], [address], 02/27/2024 10:31:06 culture, urine 2023 024 [facility] (Lab), [address], [place], [address], 02/29/2024 05:41:56 hbcab (hepatiti s B core Ab) igm, serum 2024 025 [facility] (Lab), [address], [place], [address], 07/03/2024 20:33:33 HBsAg (hepatiti s B surface Ag), serum 2024 025 [facility] (Lab), [address], [place], [address], 07/03/2024 20:33:29 hepatitis C virus Ab, serum 2024 025 [facility] (Lab), [address], [place], [address], 07/03/2024 20:33:30 HIV 1+2 AB + HIV 1 p24 Ag, qualitati ve immunoass ay, serum 2024 025 [facility] (Lab), [address], [place], [address], 07/03/2024 20:33:30 RPR (rapid plasma reagin), serum 2024 025 [facility] (Lab), [address], [place], [address], 07/03/2024 20:33:34 dhea-sulf ate, serum 2024 025 [facility] (Lab), [address], [place], [address], 07/03/2024 20:33:31 hormone panel, serum or plasma 2024 025 [facility] (Lab), [address], [place], [address], 07/03/2024 20:33:32 progester one, serum 2024 025 [facility] (Lab), [address], [place], [address], 07/03/2024 20:33:31 prolactin , serum 2024 025 [facility] (Lab), [address] , [place], [address], 07/03/2024 20:33:31 shbg (sex hormone-b inding globulin) , serum 2024 025 [facility] (Lab), [address], [place], [address], 07/03/2024 20:33:33 TSH, serum or plasma 2024 025 [facility] (Lab), [address], [place], [address], 07/03/2024 20:33:32 testoster one free/test osterone total, ratio, serum 2024 025 [facility] (Lab), [address] , [place], [address], 07/03/2024 20:33:34 CBC w/ auto diff 2024 025 [facility] (Lab), [address], [place], [address], 07/03/2024 20:33:29 Referral None recorded. Procedures None recorded. Surgeries hysterosc opy, surgical, with biopsy of endometri um and/or polypecto my (SURG) [address], [address] [facility], [place], [address], 07/23/2024 12:21:20 Imaging US, pelvis, complete 2024 025 [email or web address] Thompson, [address], [place], [address], 06/28/2024 04:07:24 US, pelvis 2024 025 [email or web address] Thompson, [address], [place], [address], 06/27/2024 20:17:34 US, transvagi nal 2024 025 [email or web address] [place] [facility] [address], [place], [address], 06/27/2024 20:17:34 Medication Orders metronida zole 0.75 % (37.5 mg/5 gram) vaginal gel 2022 023 [email or web address] [id number], [address], [place], [place], [id number], 07/11/2024 15:52:07 Patient TargetsNo targets recorded. Patient InstructionsNo instructions recorded. Reason for Referral None Reported. Results Created Date Observation Date Name Description Value Unit Range Abnormal Flag Note LastModifiedBy Organization Detail LastModifiedTime 05/26/20 23 05/26/2023 CT/GC AND TRICH OMONA S VAGIN AAMIR (RRNA ), SWAB chlamydia trachomatis, PCR NEGATI VE negati ve Not Available [facility] (Lab) [address], [place], [address], 05/27/2023 15:35:34 05/26/20 23 05/26/2023 CT/GC AND TRICH OMONA S VAGIN AAMIR (RRNA ), SWAB neisseria gonorrhoeae, PCR NEGATI VE negati ve Not Available [facility] (Lab) [address] [facility] [address] [facility] [address], [place], [address], 05/27/2023 15:35:34 05/26/20 23 05/26/2023 CT/GC AND TRICH OMONA S VAGIN AAMIR (RRNA ), SWAB trichomonas vaginalis ribosomal RNA (rrna) NEGATI VE negati ve Not Available [facility] (Lab) [address] [facility] [facility], [place], [address], 05/27/2023 15:35:34 02/27/20 24 02/27/2024 CULTU RE: URINE result report SEE RESULT S BELOW Test: Cultu re: Urine Speci men Sourc e: Urine - Clean Catch Speci men Type: Urine Speci men Date: 2023 1106 Resul t Date: 2023 0437 Resul t Statu s: Final resul t Abnor mal: No Resul ting Lab: [facility] [address] [facility] [address] Tel: CULTU RE ----- ----- ----- --- No growt h in 1 day (dete ction level of 10,00 0 colon ies / ml.) Not Available [facility] (Lab) [address], [place], [address], 02/29/2024 05:41:56 02/27/20 24 02/27/2024 urina lysis , dipst ick Leukocytes trace Not Available [facility] [address], [place], [address], 02/27/2024 10:24:36 02/27/20 24 02/27/2024 urina lysis , dipst ick Nitrite normal Not Available [place] [address], [place], [address], 02/27/2024 10:24:36 02/27/20 24 02/27/2024 urina lysis , dipst ick Urobilinogen normal Not Available [facility] bhavani [address], [place], [address], 02/27/2024 10:24:36 02/27/20 24 02/27/2024 urina lysis , dipst ick Protein trace Not Available [place] [address], [place], [address], 02/27/2024 10:24:36 02/27/20 24 02/27/2024 urina lysis , dipst ick pH 5 Not Available [place] [address], [place], [address], 02/27/2024 10:24:36 02/27/20 24 02/27/2024 urina lysis , dipst ick Blood trace Not Available [place] [address], [place], [address], 02/27/2024 10:24:36 02/27/20 24 02/27/2024 urina lysis , dipst ick Specific [place] 1.020 Not Available [facility] [address], [place], [address], 02/27/2024 10:24:36 02/27/20 24 02/27/2024 urina lysis , dipst ick Ketone trace Not Available [place] [address], [place], [address], 02/27/2024 10:24:36 02/27/20 24 02/27/2024 urina lysis , dipst ick Bilirubin normal Not Available [facility] [address], [place], [address], 02/27/2024 10:24:36 02/27/20 24 02/27/2024 urina lysis , dipst ick Glucose normal Not Available [place] [address], [place], [address], 02/27/2024 10:24:36 02/27/20 24 02/27/2024 urina lysis , dipst ick Appearance normal Not Available [facility] [address], [place], [address], 02/27/2024 10:24:36 02/27/20 24 02/27/2024 urina lysis , dipst ick Color normal Not Available [place] [address], [place], [address], 02/27/2024 10:24:36 06/19/19 25 06/19/2024 IMAGE GUIDE D PAP AND HPV REGAR DLESS image guided Pap, HPV regardless of Pap result SEE RESULT S BELOW CASE REPOR T: Cytol ogy Gynec ologi silvia Repor t Case: [id number] Autho lenin win Provi carrillo: Sharon Vences NP Colle cted: 06/19 0828 Order ing Locat ion: [place] Patho deandre Recei brooke: 06/20 0741 First Scree n: Elizabeth fuller, Arlet ed, CT Rescr een: Luis E Shea, CT Speci men: Scremellisa vitale Pap - Image d, Cervi x STATE MENT OF ADEQU ACY: Satis facto ry for evalu ation Trans forma tion zone compo nent absen t The absen ce of an endoc ervic al compo nent was confi rmed by an addit ional scree ner. ----- ----- ----- ----- ----- ----- ----- ----- ----- ----- ----- ----- ----- ----- ----- ----- ----- ---- FINAL DIAGN OSIS: Negat oliver for Intra epith elial Lissy montano or Elisabeth salas ([facility]) . Shift in zac sugge stive of bacte rial vagin osis. Elect alli moyer by Luis E Shea, CT on 2024 at 1209 CLINICAL NURSE EDUCATOR ----- ----- ----- ----- ----- ----- ----- ----- ----- ----- ----- ----- ----- ----- ----- ----- ----- ---- HPV RESUL TS: HPV mRNA E6/E7 : No HPV mRNA Detec mariza NOTE: This high risk HPV mRNA assay detec ts fourt een high- risk HPV types (16, 18, 31, 33, 35, 39, 45, 51, 52, 56, 58, 59, 66, 68) witho ut diffe renti ation . COMME NT: This speci men was revie wed by a Cytot echno logis t and/o r Patho logis t (as indic ated in this repor t) after evalu ation using the Thinp rep Imagi ng Syste m. CLINI SILVIA INFOR MATIO N: Menst rual Statu s: LMP (if appli cable ): Clini silvia Histo ry/Pr eviou s Pap: Type of Neopl nidhi (if appli cable ): Signi fican t Clini silvia Findi ngs: Other Histo ry: Hormo lawrence (if appli cable ): PAP EDUCA AMI L NOTE: The Pap Test is a scree iam test with an inher ent false negat oliver rate. Liqui d-bas ed sampl ing may decre ase, but will not elimi jim, false negat oliver resul ts. A negat oliver resul t does not precl ude the prese nce and/o r devel opmen t of disea se, since the prese nce of abnor mal cells in the sampl e depen ds on the locat ion of the lesio n and sampl ing techn ique. Roxane nued regul ar scree iam is the best metho d of cance r preve ntion . If repor mariza cytol ogic findi ng do not corre late with physi silvia and/o r histo rical findi ngs, furth er inves tigat ion is recom ethel d, as clini bret bryant nted. Not Available [facility] (Lab) [address], [place], [address], 06/27/2024 13:12:19 06/19/19 25 06/19/2024 TRICH OMONA S VAGIN AAMIR (RRNA ) trichomonas vaginalis ribosomal RNA (rrna) Negati ve negati ve Not Available [facility] (Lab) [address], [place], [address], 06/27/2024 13:12:19 06/19/19 25 06/19/2024 CT/GC (JUSTIN) , THINP REP VIAL chlamydia trachomatis, PCR Negati ve negati ve Not Available [facility] (Lab) [address], [place], [address], 06/27/2024 13:12:20 06/19/19 25 06/19/2024 CT/GC (JUSTIN) , THINP REP VIAL neisseria gonorrhoeae, PCR Negati ve negati ve Not Available [facility] (Lab) [address], [place], [address], 06/27/2024 13:12:20 06/27/19 25 06/27/2024 CBC W/DIF F WBC 8.4 10'3/ uL 3.5-10 .5 Not Available [facility] (Lab) [address], [place], [address], 07/03/2024 20:33:29 06/27/19 25 06/27/2024 CBC W/DIF F RBC 4.82 10'6/ uL (based on docume nted legal sex) 3.80-5 .20 Not Available [facility] (Lab) [address], [place], [address], 07/03/2024 20:33:29 06/27/19 25 06/27/2024 CBC W/DIF F HGB 14.0 g/dL (based on docume nted legal sex) 11.6-1 5.4 Not Available [facility] (Lab) [address], [place], [address], 07/03/2024 20:33:29 06/27/19 25 06/27/2024 CBC W/DIF F HCT 44.5 % (based on docume nted legal sex) 34.0-4 5.0 Not Available [facility] (Lab) [address], [place], [address], 07/03/2024 20:33:29 06/27/19 25 06/27/2024 CBC W/DIF F MCV 92.3 fL 80.0-9 9.0 Not Available [facility] (Lab) [address], [place], [address], 07/03/2024 20:33:29 06/27/19 25 06/27/2024 CBC W/DIF F MCH 29.0 pg 27.0-3 4.0 Not Available [facility] (Lab) [address], [place], [address], 07/03/2024 20:33:29 06/27/19 25 06/27/2024 CBC W/DIF F MCHC 31.5 g/dL 32.0-3 5.5 low Not Available [facility] (Lab) [address], [place], [address], 07/03/2024 20:33:29 06/27/19 25 06/27/2024 CBC W/DIF F RDW 12.9 % 11.0-1 5.0 Not Available [facility] (Lab) [address], [place], [address], 07/03/2024 20:33:29 06/27/19 25 06/27/2024 CBC W/DIF F plt 394 10'3/ uL 150-40 0 Not Available [facility] (Lab) [address], [place], [address], 07/03/2024 20:33:29 06/27/19 25 06/27/2024 CBC W/DIF F MPV 12.2 fL 8.8-12 .1 high Not Available [facility] (Lab) [address], [place], [address], 07/03/2024 20:33:29 06/27/19 25 06/27/2024 CBC W/DIF F neutrophils 62.4 % 34.0-7 3.0 Not Available [facility] ([facility]) [address], [place], [address], 07/03/2024 20:33:29 06/27/19 25 06/27/2024 CBC W/DIF F lymphocytes 31.9 % 15.0-5 0.0 Not Available [facility] ([facility]) [address], [place], [address], 07/03/2024 20:33:29 06/27/19 25 06/27/2024 CBC W/DIF F monocytes 4.3 % 1.0-15 .0 Not Available [facility] ([facility]) [address], [place], [address], 07/03/2024 20:33:29 06/27/19 25 06/27/2024 CBC W/DIF F eosinophils 0.6 % 0.0-8. 0 Not Available [facility] ([facility]) [address], [place], [address], 07/03/2024 20:33:29 06/27/19 25 06/27/2024 CBC W/DIF F basophils 0.6 % 0.0-2. 0 Not Available [facility] ([facility]) [address], [place], [address], 07/03/2024 20:33:29 06/27/19 25 06/27/2024 CBC W/DIF F immature granulocytes 0.2 % no define d refere nce range Immat ure Granu locyt es (IG) repre sents autom ated enume ratio n of Metam yeloc ytes, Myelo cytes and Promy elocy hamilton when IG is < 5%. Blast s are not inclu ded in IG and repor mariza separ ately if prese nt. Not Available [facility] (Lab) [address], [place], [address], 07/03/2024 20:33:29 06/27/19 25 06/27/2024 CBC W/DIF F absolute neutrophils 5.2 10'3/ uL 1.5-8. 0 Not Available [facility] ([facility]) [address] [facility] [address], [place], [address], 07/03/2024 20:33:29 06/27/19 25 06/27/2024 CBC W/DIF F absolute lymphocytes 2.7 10'3/ uL 1.0-4. 0 Not Available [facility] (Lab) [address] [facility] [address], [place], [address], 07/03/2024 20:33:29 06/27/19 25 06/27/2024 CBC W/DIF F absolute monocytes 0.4 10'3/ uL 0.2-1. 0 Not Available [facility] ([facility]) [address] [facility] [address], [place], [address], 07/03/2024 20:33:29 06/27/19 25 06/27/2024 CBC W/DIF F absolute eosinophils 0.1 10'3/ uL 0.0-0. 6 Not Available [facility] ([facility]) [address] [facility] [address], [place], [address], 07/03/2024 20:33:29 06/27/19 25 06/27/2024 CBC W/DIF F absolute basophils 0.1 10'3/ uL 0.0-0. 3 Not Available [facility] (Lab) [address], [place], [address], 07/03/2024 20:33:29 06/27/19 25 06/27/2024 CBC W/DIF F absolute immature granulocytes 0.0 10'3/ uL 0.00-0 .10 Refer ence range s for nonbi nary/ inter sex or unspe cifie d gende r patie nts have not been estab lishe d. Pleas e refer to the follo wing table for range s estab lishe d for cisge nder patie nts and evalu ate in the clini silvia hi xt of the indiv idual patie nt: https ://la danni book. nm.or g/Gen derX Not Available [facility] (Lab) [address], [place], [address], 07/03/2024 20:33:29 06/27/19 25 06/27/2024 HEPAT ITIS B SURFA CE ANTIG EN hepatitis B surface antigen Non-re active non-re active This assay was perfo rmed using [employer] ratio n reage nts and test kits. Value s obtai shannon with other assay metho ds or kits canno t be used inter mabry eably . Not Available [facility] (Lab) [address], [place], [address], 07/03/2024 20:33:29 06/27/19 25 06/27/2024 HIV 1/2 ANTIG EN/AN TIBOD Y, REFLE X CONFI RMATI ON HIV antigen/anti body Nonrea ctive nonrea ctive HIV-1 antig en and HIV-1 /HIV- 2 antib odies were not detec mariza. No labor atory evide nce of HIV infec tion. Not Available [facility] (Lab) [address], [place], [address], 07/03/2024 20:33:30 06/27/19 25 06/27/2024 HEPAT ITIS C ANTIB MARILYN SCREE N, REFLE X TO CONFI RMATI ON hepatitis C antibody Non-re active non-re active Antib odies to HCV Not Detec mariza, does not exclu de the possi bilit y of expos ure to HCV. Not Available [facility] (Lab) [address], [place], [address], 07/03/2024 20:33:30 06/27/19 25 06/27/2024 DHEA SULFA TE DHEA-sulfate 36 ug/dL Femal e Range s Age(y ) Range (ug/d L) 10-15 34-28 0 15-20 65-36 8 20-25 148-4 07 25-35 99-34 0 35-45 61-33 7 45-55 35-25 6 55-65 19-20 5 65-75 9-246 > 75 12-15 4 Not Available [facility] (Lab) [address], [place], [address], 07/03/2024 20:33:31 06/27/19 25 06/27/2024 PROGE STERO NE progesterone 6.85 NG/mL This assay was perfo rmed using [employer] ratio [employer] reage nts and test kits. Value s obtai shannon with other assay metho ds or kits canno t be used inter [facility] . Femal e Proge stero ne Range s: Folli cular phase 0.06- 0.89 ng/mL Ovula tion phase 0.12- 12.00 ng/mL Lutea l phase 1.83- 23.90 ng/mL Postm enopa usal <0.05 -0.13 ng/mL Healt hy Pregn ant Women 1st Trime ster 11.0- 44.30 2nd Trime ster 25.40 -83.3 0 3rd Trime ster 58.70 -214. 00 Not Available [facility] (Lab) [address] [place], [address], 07/03/2024 20:33:31 06/27/19 25 06/27/2024 PROLA CTIN prolactin, total 14.00 NG/mL 4.79-2 3.30 This assay was perfo rmed using [employer] reage nts and test kits. Value s obtai shannon with other assay metho ds or kits canno t be used inter [facility] . Not Available [facility] (Lab) [address] [facility] [facility], [place], [address], 07/03/2024 20:33:31 06/27/19 25 06/27/2024 FSH, LH, ESTRA DIOL estradiol 131.0 pg/mL This assay was perfo rmed using [employer] reage nts and test kits. Value s obtai shannon with other assay metho ds or kits canno t be used inter [facility] . Femal e Estra diol Range s: Folli cular phase 12.4- 233 pg/mL Ovula tion phase 41.0- 398 pg/mL Lutea l phase 22.3- 341 pg/mL Postm enopa usal <5-13 8 pg/mL Healt hy Pregn ant Women 1st Trime ster 154-3 243 pg/mL 2nd Trime ster 1561- 33548 pg/mL 3rd Trime ster 8525- >3000 0 pg/mL Not Available [facility] (Lab) [address] [facility] [facility], [place], [address], 07/03/2024 20:33:32 06/27/19 25 06/27/2024 FSH, LH, ESTRA DIOL FSH 2.5 mIU/m L This assay was perfo rmed using [employer] reage nts and test kits. Value s obtai shannon with other assay metho ds or kits canno t be used inter mabry eably . Femal es Folli cular : 3.5-1 2.5 mIU/m L Ovula tion: 4.7-2 1.5 mIU/m L Lutea l: 1.7-7 .7 mIU/m L Postm enopa use: 25.8- 134.8 mIU/m L Not Available [facility] (Lab) [address] [facility] [facility] [address], [place], [address], 07/03/2024 20:33:32 06/27/19 25 06/27/2024 FSH, LH, ESTRA DIOL LH 4.6 mIU/m L This assay was perfo rmed using [employer] reage nts and test kits. Value s obtai shannon with other assay metho ds or kits canno t be used inter mabry eably . Femal es Mid-F ollic ular: 2.4-1 2.6 mIU/m L Mid-C ycle: 14.0- 95.6 mIU/m L Mid-L uteal : 1.0-1 1.4 mIU/m L Postm enopa use: 7.7-5 8.5 mIU/m L Not Available [facility] (Lab) [address] [place], [address], 07/03/2024 20:33:32 06/27/19 25 06/27/2024 TSH, REFLE X FREE T4 TSH 1.30 uIU/m L 0.30-5 .33 Not Available [facility] (Lab) [address] [facility] [facility] [address], [place], [address], 07/03/2024 20:33:32 01/16/20 25 06/27/2024 HUMAN SEX HORMO NE TYLOR NG GLOBU MONA sex hormone binding globulin 54.2 nmole s/L 18.2-1 35.5 Not Available [facility] (Lab) [address] [facility] [address], [place], [address], 07/03/2024 20:33:33 06/27/19 25 06/27/2024 HEPAT ITIS B CORE, IGM hepatitis B core IgM antibody Non-re active non-re active IgM anti- HBc not detec mariza. Does not exclu de the possi bilit y of expos ure to or infec tion with HBV. Not Available [facility] (Lab) [address], [place], [address], 07/03/2024 20:33:33 06/27/19 25 06/27/2024 RPR SCREE N, REFLE X TITER /CONF IRMAT ION RPR screen Nonrea ctive nonrea ctive Not Available [facility] (Lab) [address], [place], [address], 07/03/2024 20:33:34 06/27/19 25 06/27/2024 TESTO STERO NE, FREE( DIALY SIS) AND TOTAL (LC/M S/MS) testosterone , total 10 NG/dL 2-45 For addit ional infor deniz carney e refer to http: //[facility] rl [place].que stdia gnost ics.c om/fa q/ Total Testo stero neLCM [facility] Q165 (This link is being provi ded for infor sylvai nal/ educa ami l purpo ses only. ) This test was devel oped and its louie tical perfo rmanc e kailash cteri stics have been deter mined by [facility] [place], [place]. It has not been clear ed or appro brooke by the U.S. Food and Drug Admin istra tion. This assay has been valid ated pursu ant to the CLIA regul ation s and is used for clini silvia purpo ses. Not Available [facility] (Lab) [address], [place], [address], 07/03/2024 20:33:34 06/27/19 25 06/27/2024 TESTO STERO NE, FREE( DIALY SIS) AND TOTAL (LC/M S/MS) testosterone , free 1.1 pg/mL 0.1-6. 4 This test was devel oped and its louie tical perfo rmanc e kailash cteri stics have been deter mined by [facility] [place], [place]. It has not been clear ed or appro brooke by the U.S. Food and Drug Admin istra tion. This assay has been valid ated pursu ant to the CLIA regul ation s and is used for clini silvia purpo ses. Perfo rming Organ izati on Infor matio n: Site ID: [id number] Name: [facility] tute Addre ss: [id number] [facility] [id number] [place], [place] Direc tor: Hernandez Garcia MD PhD Not Available [facility] (Lab) [address], [place], [address], 07/03/2024 20:33:34 06/27/19 25 06/27/2024 pregn elder test, urine HCG negati ve Not Available [place] [address], [place], [address], 06/27/2024 13:37:49 06/27/19 25 06/27/2024 US, pelvi s No observ ation record ed. [email or web address] [place] [address], [place], [address], 06/27/2024 13:08:12 06/27/19 25 06/27/2024 US, trans vagin al No observ ation record ed. [email or web address] [place] [address], [place], [address], 06/27/2024 13:11:03 06/27/19 25 06/27/2024 US, pelvi s No observ ation record ed. [email or web address] [address], [place], [address], 07/04/2024 10:56:47 Result Notes None recorded. 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 16:23:37 Eruption [id number] Completed 201511/26/2020 Rash;Iraj rded Elsewhere : No Locati on: [facility] So urce: EHR Chron ic: N Practic e ID: [id number] Bill able Time: 03:00:00 PM Malgorzata Rapp [facility] 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 16:23:[address] Concept Completed 201511/26/2020 Encntr for general adult medical exam w/o abnormal findings; Recorded Elsewhere : No Locati on: [facility] So urce: EHR Chron ic: N Practic e ID: 0001 Bill able Time: 03:15:00 PM Malgorzata Rapp [facility] 16:23:35 Acute vaginiti s [id number] Completed 201911/26/2020 Acute vaginitis ;Recorded Elsewhere : No Locati on: [facility] So urce: EHR Chron ic: N Practic e ID: 0001 Bill able Time: 10:00:00 AM Malgorzata Rapp [facility] [place] [facility] 1 16:23:23 Pregnanc y test negative [id number] Completed 201711/26/2020 Encounter for test, result negative; Recorded Elsewhere : No Locati on: [facility] So urce: EHR Chron ic: N Practic e ID: 0001 Bill able Time: 05:45:00 PM Malgorzata Rapp [facility] 1 16:23:30 Postcoit al finding [id number] Completed 201711/26/2020 Postcoita l and contact bleeding; Recorded Elsewhere : No Locati on: [facility] So urce: EHR Chron ic: N Practic e ID: 0001 Bill able Time: 10:14:17 AM Malgorzata Rapp [facility] 1 16:23:29 Screenin g for malignan t neoplasm of cervix Completed 201511/26/2020 Encounter for screening for malignant neoplasm of cervix;Re corded Elsewhere : No Locati on: [facility] So urce: EHR Chron ic: N Practic e ID: 0001 Bill able Time: 03:15:00 PM Malgorzata Rapp [facility] 1 16:23:32 Syphilis test finding [id number] Completed 201711/26/2020 Encounter for STD screening ;Recorded Elsewhere : No Locati on: [facility] So urce: EHR Chron ic: N Practic e ID: [id number] Bill able Time: 03:00:00 PM Malgorzata Rapp [facility] 1 16:23:40 Adult health examinat ion Completed 201411/26/2020 ROUTINE MEDICAL EXAM;Iraj rded Elsewhere : No Locati on: [facility] So urce: EHR Chron ic: N Practic e ID: [id number] Bill able Time: 01:00:00 PM Malgorzata Rapp [facility] [place] [facility] 16:23:26 Screenin g for malignan t neoplasm of rectum Completed 201611/26/2020 Encounter for screening for malignant neoplasm of rectum;Re corded Elsewhere : No Locati on: [facility] So urce: EHR Chron ic: N Practic e ID: 0001 Bill able Time: 04:15:00 PM Malgorzata Rapp [facility] [place] [facility] 16:23:33 Vaginola bial hernia Completed 201511/26/2020 Other specified noninflam matory disorders of vagina;Re corded Elsewhere : No Locati on: [facility] So urce: EHR Chron ic: N Practic e ID: [id number] Bill able Time: 03:00:00 PM Malgorzata Rapp [facility] [place] [facility] 16:23:41 Problem Notes None recorded. Procedures Surgical History Date Name Laterality Status Provider Name and Address Organization Details Recorded Time 10/28/19 23 Date of Last Mammogram completed Jalyn Gamez [facility] 03/14/2023 16:05:10 09/21/19 23 Date of Last Pap Smear completed Jalyn Gamez [facility] 03/14/2023 16:04:00 10/06/19 18 Colposcopy completed Nely Romero [facility] 08/25/2020 11:55:57 10/06/19 18 Colposcopy completed Veronica Calzada [facility] 08/31/2020 10:51:09 06/12/18 95 cryosurgery completed Veronica Calzada [facility] 08/31/2020 10:33:07 06/12/18 95 biopsy completed Nely Romero [facility] 08/25/2020 11:57:09 Imaging Results Imaging Date Name Status LastModified by Organization Details LastModified Time 06/27/2024 US, pelvis completed [email or web address] [place] [address], [place], [address], 06/27/2024 13:08:12 06/27/2024 US, transvaginal completed [email or web address] [facility] [address], [place], [address], 06/27/2024 13:11:03 06/27/2024 US, pelvis completed [email or web address] [address], [place], [address], 07/04/2024 10:56:47 Procedure Notes None recorded. Medical Equipment None Reported. Allergies No known drug allergies Medications Name Sig Start Date Stop Date Status Note LastModified by Organization Details LastModified Time antacid/l kartik/wal-d ryl 111 susp SWISH AND SWALLOW 15 ML EVERY 4 HOURS NEEDED FOR PAIN FOR UP TO 14 DAYS 09/20 completed Not Available Not Available Not Available cyclobenz aprine 10 mg tablet TAKE 1 TABLET BY MOUTH THREE TIMES DAILY NEEDED FOR MUSCLE SPASM 09/20 completed Not Available Not Available Not Available amoxicill in 500 mg capsule TAKE 1 CAPSULE BY MOUTH THREE TIMES DAILY 08/17 completed Not Available Not Available Not Available metformin 500 mg tablet 06/18 completed Not Available Not Available Not Available doxycycli ne hyclate 100 mg capsule TAKE 1 CAPSULE BY MOUTH TWICE DAILY WITH FOOD AND WATER 06/18 completed Not Available Not Available Not Available clindamyc in HCl 300 mg capsule TAKE 1 CAPSULE BY MOUTH THREE TIMES DAILY. STOP IF DIARRHEA OCCURS 08/17 completed Not Available Not Available Not Available azithromy malathi 250 mg tablet 02/26 completed Not Available Not Available Not Available ibuprofen 800 mg tablet TAKE 1 TABLET BY MOUTH EVERY 6 HOURS FOR UP TO 10 DAYS NEEDED FOR MODERATE TO SEVERE PAIN 09/20 completed Not Available Not Available Not Available Lidocaine Viscous 2 % mucosal solution 09/20 completed Not Available Not Available Not Available fluconazo le 150 mg tablet TAKE 1 TABLET BY MOUTH TODAY. REPEAT IN 72 HOURS 06/18 completed Not Available Not Available Not Available benzonata te 200 mg capsule TAKE 1 CAPSULE BY MOUTH THREE TIMES DAILY NEEDED FOR COUGH 02/26 completed Not Available Not Available Not Available hydrocodo ne 5 mg-acetam inophen 325 mg tablet TAKE 1 TABLET BY MOUTH EVERY 6 HOURS NEEDED FOR PAIN 06/18 completed Not Available Not Available Not Available fluconazo le 200 mg tablet TAKE 1 TABLET BY MOUTH EVERY OTHER DAY FOR 3 DOSES 06/01 completed Not Available Not Available Not Available sucralfat e 1 gram tablet TAKE 1 TABLET BY MOUTH THREE TIMES DAILY. CRUSH TABLET AND MIX WITH 15 ML OF LIQUID 1 HOUR BEFORE MEALS 09/20 completed Not Available Not Available Not Available metronida zole 0.75 % (37.5 mg/5 gram) vaginal gel INSERT 1 APPLICAT ORFUL VAGINALL Y EVERY DAY AT BEDTIME FOR 5 NIGHTS 07/11 completed Not Available Not Available Not Available famotidin e 40 mg tablet 09/20 completed Not Available Not Available Not Available prednison e 20 mg tablet TAKE 2 TABLETS BY MOUTH EVERY DAY FOR 5 DAYS 02/26 completed Not Available Not Available Not Available pimecroli mus 1 % topical cream APPLY TO THE AFFECTED AREA OF CHIN TWICE DAILY 06/18 completed Not Available Not Available Not Available meclizine 12.5 mg tablet active Not Available Not Available Not Available metronida zole 500 mg tablet TAKE 1 TABLET BY MOUTH EVERY 12 HOURS WITH MEALS FOR 7 DAYS 02/15 completed Not Available Not Available Not Available acetamino phen 300 mg-codein e 30 mg tablet TAKE 1-2 TABLET BY MOUTH EVERY 6 HOURS NEEDED FOR PAIN 08/17 completed Not Available Not Available Not Available sulfameth oxazole 800 mg-trimet hoprim 160 mg tablet TAKE 1 TABLET BY MOUTH TWICE DAILY FOR 3 DAYS 06/18 completed Not Available Not Available Not Available triamcino lone acetonide 0.1 % topical cream apply by topical route 2 times every day a thin layer to the affected area(s) 06/25 completed Prescrib mia Bloom e: No Locat ion: [facility] M odify By: [email or web address] Encount er DateTime : 09/29/19 16 03:15:00 PM Not Available Not Available Not Available ondansetr on 8 mg disintegr ating tablet DISSOLVE 1 TABLET ON THE TONGUE THREE TIMES DAILY NEEDED 09/20 completed Not Available Not Available Not Available ketorolac 10 mg tablet TAKE 1 TABLET BY MOUTH EVERY 6 HOURS NEEDED FOR MODERATE TO SEVERE PAIN 01/11 completed Not Available Not Available Not Available pantopraz ole 20 mg tablet,de layed release 05/25 completed Not Available Not Available Not Available nystatin- triamcino lone 100,000 unit/gram -0.1 % topical ointment APPLY EXTERNAL LY TO THE AFFECTED AREA TWICE DAILY FOR 5 DAYS 11/26 completed Not Available Not Available Not Available terbinafi ne HCl 250 mg tablet TAKE 1 TABLET BY MOUTH EVERY DAY 09/20 completed Not Available Not Available Not Available amoxicill in 875 mg tablet 03/30 completed Not Available Not Available Not Available methotrex ate sodium 2.5 mg tablet 03/30 completed Not Available Not Available Not Available Silvadene 1 % topical cream 09/20 completed Not Available Not Available Not Available meclizine 25 mg tablet TAKE 1 TABLET BY MOUTH THREE TIMES DAILY NEEDED FOR DIZZINES S 01/11 completed Not Available Not Available Not Available benzonata te 100 mg capsule 09/20 completed Not Available Not Available Not Available pantopraz ole 40 mg tablet,de layed release TAKE 1 TABLET BY MOUTH TWICE A DAY 01/11 completed Not Available Not Available Not Available esomepraz ole magnesium 40 mg capsule,d elayed release active Not Available Not Available Not Available lidocaine 5 % topical patch 09/20 completed Not Available Not Available Not Available omeprazol e 20 mg capsule,d elayed release active Not Available Not Available Not Available folic acid 1 mg tablet 03/30 completed Not Available Not Available Not Available mupirocin 2 % topical ointment APPLY TOPICALL Y TO THE AFFECTED AREA THREE TIMES DAILY 08/17 completed Not Available Not Available Not Available ibuprofen 600 mg tablet TAKE 1 TABLET BY MOUTH 3 TIMES A DAY WITH FOOD 06/18 completed Not Available Not Available Not Available methylpre dnisolone 4 mg tablets in a dose pack FOLLOW PACKAGE DIRECTIO NS 06/18 completed Not Available Not Available Not Available albuterol sulfate HFA 90 mcg/actua tion aerosol inhaler 06/18 completed Not Available Not Available Not Available ketoconaz ole 2 % topical cream 03/30 completed Not Available Not Available Not Available ondansetr on 4 mg disintegr ating tablet TAKE 1 TABLET BY MOUTH EVERY 8 HOURS NEEDED FOR NAUSEA 01/11 completed Not Available Not Available Not Available naproxen 500 mg tablet 05/12 completed Not Available Not Available Not Available amoxicill in 875 mg-potass ium clavulana te 125 mg tablet TAKE 1 TABLET BY MOUTH EVERY 12 HOURS FOR 10 DAYS 05/25 completed Not Available Not Available Not Available clindamyc in phosphate 1 % topical solution APPLY 2 DROPS EVERY DAY TO PROCEDUR E SITE 09/20 completed Not Available Not Available Not Available esomepraz ole magnesium 20 mg capsule,d elayed release 07/11 completed Not Available Not Available Not Available oxycodone 5 mg tablet 09/20 completed Not Available Not Available Not Available metaxalon e 800 mg tablet TAKE 1 TABLET BY MOUTH THREE TIMES DAILY 09/20 completed Not Available Not Available Not Available cyclobenz aprine 5 mg tablet active Not Available Not Available No t Available nitrofura ntoin monohydra te/macroc rystals 100 mg capsule TAKE 1 CAPSULE BY MOUTH EVERY 12 HOURS FOR 5 DAYS 07/11 completed Not Available Not Available Not Available duloxetin e 30 mg capsule,d elayed release TAKE 1 CAPSULE BY MOUTH TWICE DAILY active Not Available Not Available No t Available chlorhexi dine gluconate 0.12 % mouthwash SWISH AND SPIT 10-15 ML BY MOUTH TWICE A DAY 11/26 completed Not Available Not Available Not Available aspirin 05/12 completed Not Available Not Available Not Available Aleve 05/12 completed Not Available Not Available Not Available Tylenol 05/25 completed Not Available Not Available Not Available diclofena c 1 % topical gel APPLY 2G TO UPPER EXTREMIT IES OR 4G TO LOWER EXTREMIT IES UP TO FOUR TIMES DAILY 07/11 completed Not Available Not Available Not Available Slynd 4 mg (28) tablet TAKE 1 TABLET BY MOUTH EVERY DAY 09/07 completed Not Available Not Available Not Available Wegovy 1.7 mg/0.75 mL subcutane ous pen injector INJECT 0.75 ML (1.7 MG TOTAL) UNDER THE SKIN EVERY 7 DAYS active Not Available Not Available No t Available Wegovy 1 mg/0.5 mL subcutane ous pen injector INJECT 0.5 ML (1 MG TOTAL) UNDER THE SKIN EVERY 7 DAYS FOR 28 DAYS 06/18 completed Not Available Not Available Not Available Wegovy 0.25 mg/0.5 mL subcutane ous pen injector INJECT 0.5 ML (0.25 MG TOTAL) UNDER THE SKIN EVERY 7 DAYS FOR 28 DAYS 06/18 completed Not Available Not Available Not Available Wegovy 0.5 mg/0.5 mL subcutane ous pen injector INJECT 0.5 ML (0.5 MG TOTAL) UNDER THE SKIN EVERY 7 DAYS FOR 28 DAYS 07/11 completed Not Available Not Available Not Available Paxlovid 300 mg (150 mg x 2)-100 mg tablets in a dose pack 09/20 completed Not Available Not Available Not Available Vitals Date Recorded Body height Body mass index (BMI) Body weight Systolic blood pressure Diastolic blood pressure Provider Name and Address Organization Details Last Updated DateTime 05/25/2023 154.94 cm 38 kg/m2 81099.07 g 141 mm[Hg] 82 mm[Hg] Jalyn Gamez [facility] 3 17:20:25 Date Recorded Body height Body mass index (BMI) Body weight Systolic blood pressure Diastolic blood pressure Provider Name and Address Organization Details Last Updated DateTime 02/27/2024 154.94 cm 35.9 kg/m2 61702.55 g 127 mm[Hg] 85 mm[Hg] Veronica Calzada [facility] 4 10:23:12 Date Recorded Body height Body mass index (BMI) Body weight Systolic blood pressure Diastolic blood pressure Provider Name and Address Organization Details Last Updated DateTime 06/18/2024 154.94 cm 34.4 kg/m2 65258.09 g 137 mm[Hg] 83 mm[Hg] Rosy Gill [facility] 5 16:12:24 Date Recorded Body height Body mass index (BMI) Body weight Systolic blood pressure Diastolic blood pressure Provider Name and Address Organization Details Last Updated DateTime 07/11/2024 154.94 cm 33.6 kg/m2 31557.44 g 130 mm[Hg] 86 mm[Hg] Jalyn Gamez [facility] 15:51:39 Social History Question Answer Notes LastModified by Organizat ion Details LastModified Time Tobacco Smoking Status Never Smoker Malgorzata Rapp keith, [facility] 08/17/2021 13:19:20 Do You Have An Advance Directive? No Information not available 11/26/2020 What Is Your Level Of Alcohol Consumption? Occasional [email or web address] Information not available 08/31/2020 If You Are , What Was Your Level Of Alcohol Consumption Prior To ? Occasional Information not available 08/17/2021 How Many Years Have You Consumed Alcohol? 20 Information not available 11/26/2020 Are You Blind Or Do You Have Difficulty Seeing? No [email or web address] Information not available 08/31/2020 What Is Your Level Of Caffeine Consumption? Occasional Information not available 08/17/2021 How Much Tobacco Do You Chew? None Information not available 08/17/2021 In The 14 Days Before Symptom Onset, Have You Had Close Contact With A Laboratory-confir med COVID-19 While That Case Was Ill? No [email or web address] Information not available 08/31/2020 In The 14 Days Before Symptom Onset, Have You Had Close Contact With A Person Who Is Under Investigation For COVID-19 While That Person Was Ill? No [email or web address] Information not available 08/31/2020 Have You Been To An Area Known To Be High Risk For COVID-19? No Information not available 08/31/2020 Are You Deaf Or Do You Have Serious Difficulty Hearing? No Information not available 08/31/2020 What Type Of Diet Are You Following? REGULAR [email or web address] Information not available 08/31/2020 What Is The Highest Grade Or Level Of School You Have Completed Or The Highest Degree You Have Received? 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 No Information not available 11/26/2020 Have You Ever Been Counseled For Unhealthy Alcohol Use? No Information not available 08/17/2021 Do You Use Protection During Sex? No Information not available 11/26/2020 Do You Use Your Seat Belt Or Car Seat Routinely? Yes [email or web address] Information not available 08/31/2020 Do You Have Smoke And Carbon Monoxide Detectors In Your Home? Yes [email or web address] Information not available 08/31/2020 How Much Tobacco Do You Smoke? No Information not available 11/26/2020 Do You Feel Stressed (tense, Restless, Nervous, Or Anxious, Or Unable To Sleep At Night)? [id number] [email or web address] Information not available 08/31/2020 Do You Use Any Illicit Or Recreational Drugs? No [email or web address] Information not available 08/31/2020 Do You Use Sunscreen Routinely? No Information not available 06/18/2024 Has Tobacco Cessation Counseling Been Provided? No Information not available 08/17/2021 Have You Used IV Drugs? No Information not available 11/26/2020 Do You Or Have You Ever Used Any Other Forms Of Tobacco Or Nicotine? No Information not available 08/17/2021 Sex: Unknown Functional Status Question Answer Note LastModified by Organizat ion Details LastModified Time Do you have difficulty walking or climbing stairs? No Information not available 09/07/2021 Are you able to walk? YESWOREST [email or web address] Information not available 08/31/2020 Are you able to care for yourself? Yes Information not available 09/07/2021 Do you have difficulty dressing or bathing? No Information not available 09/07/2021 What is your exercise level? Occasional Information not available 08/17/2021 Mental Status None recorded. Family History Relationship Description Onset Age of this Age Resolved Age Notes LastModified by Organization Details LastModified Time Maternal Uncle Seizure disorder [email or web address] Not available 2024 15:38:03 Maternal Uncle Diabetes mellitus [email or web address] Not available 2020 16:14:15 Maternal Aunt Diabetes mellitus [email or web address] Not available 2020 16:14:15 Maternal Grandmother Diabetes mellitus [email or web address] Not available 2020 16:14:15 Mother Diabetes mellitus [email or web address] Not available 2020 16:14:15 Medical History Condition Response Allergies (Food, seasonal, environmental ) N Other N Drug/Latex Allergies/Reactions N Blood Transfusion N Breast Cancer N Dermatologic Disorders N Lung Disease N Defects or Inherited Disease N Breast Problem N Gestational Diabetes N Hematologic disorders N Anesthesia Complications N History of STI N Deep Vein Thrombosis N Polycystic ovary syndrome N Anxiety Disorder Y Autoimmune disease N Arthritis N Polyps N Infertility N Acid Reflux (GERD) Y History of abnormal pap Y Cancer N Varicosities N Stroke N Neurologic/Epilepsy N Endometriosis N High Cholesterol N Fibromyalgia N Headaches N Kidney Disease N Heart Problems Y Thyroid Problems N Kidney or Bladder Problems N GI Problems N Eating Disorder N Anemia N Art (IVF or FET) N Psychiatric Illness N Ovarian Cancer N Diabetes N Pulmonary (TB, Asthma) N Hepatitis/Liver Disease N No Past Medical History N Eczema N Urinary Tract Infection N Abuse/Domestic Violence N Asthma N Trauma/Violence N Depression/ depression N Heart Disease N Pre-Eclampsia N Hypertension N Osteoporosis N Thrombophilias N Gynecological History Statement/Question Response Date of Last Mammogram 10/27/2022 Flow Moderate Date of LMP 05/19/2024 N Was last menstrual period normal Y STIs/STDs N Date of control 09/10/2020 BCPs Desired Control Method Unknown Abnormal Pap Y On BCP's at Conception? N Colposcopy 10/05/2017 HPV Vaccine N Duration of Flow (days) 30 Current Control Method None Age at First Child 18 Are cycles usually normal Y Frequency of Cycle (Q days) 26 Sexually Active? Y Menses Monthly Y Age of first menstrual cycle 11 Date of Last Pap Smear 09/20/2022 Sexual Problems? N LMP Definite N 06/12/1994 Obstetrics History GPAL:G 5 P 2 0 3 2 Type Value Full Term 2 Induced 3 Living 2 Total 5 Past Encounters Encounter ID Performer Location Encounter Start Date Encounter Closed Date Diagnosis/Indication Diagnosis SNOMED-CT Code Diagnosis ICD10 Code Diagnosis Note [id number] Mauricio Laurent MD [place] [address] [address] 03/30/2020 16:58:06 03/31/2020 13:11:34 Vaginitis 82922010 N76.0 Venereal d isease screening 634640024 Z11.3 this patient is a 39-year-ol d female with concerned about sexual transmitte d disease infection who presents to be screened. She also reports vulvar itching and wants to be treated for yeast infection. We agreed to send and Diflu [id number] Madelyn Maher [place] [address],[place] [address] 05/12/2020 13:59:12 05/17/2020 15:54:06 Abnormal uterine bleeding [id number] 9100 N93.9 F/U for TVUS & complete labs. [id number] Madelyn Maher [place] [address] [address] 05/25/2020 15:59:18 05/26/2020 15:39:11 Vaginitis 70701480 N76.0 Exam is suspect for yeast infection vs BV. Treat for yeast & will wait for return of results for any further treatment. She agrees. Time spent in visit is a total of 15 mins with at least 50% of visit consisting of counseling and review of plan of care. [id number] [place] [place] [address] [address] 06/01/2020 15:28:08 06/01/2020 15:52:30 Abnormal uterine bleeding [id number] 9100 N93.9 [id number] Madelyn Maher [place] [address],[place] [address] 06/01/2020 15:28:42 06/01/2020 17:25:28 Abnormal uterine bleeding [id number] 9100 N93.9 Reviewed TVUS WNL Considerin g having another baby. Trial Slynd x 3mos F/U x 3mos TVUS wnl R/P prolactin Counseled IUD/POP/Ne xplanon/En do ablation Time spent in visit is a total of 15 mins with at least 50% of visit consisting of counseling and review of plan of care. [id number] Madelyn Maher [facility] [address] [address] 08/31/2020 10:06:32 08/31/2020 10:44:23 Gynecologic examination [id number] Z01.419 Suggested Calcium with Vitamin D 1200-1500m g daily. Patient advised to get an annual flu shot in the fall and she could obtain at [facility] or [facility] care clinic. Also to obtain TDap vaccinatio n if you have not had one in the last 10 years. Recommend yearly mammograms . Encouraged monthly self breast exams. Encourage safe sexual practices, to use condoms and limit partners if not already in a monogamous relationsh ip. Engage in daily exercise of low impact aerobic exercise 45-60 minutes 4-5 times weekly. Avoid tobacco and illicit drugs as well as using moderation with alcohol intake less than 1-2 8 oz beverages daily. This lifestyle behavior pattern will lead to less health conditions and longer life span. If BMI greater than 25 weight watchers or dietary consult advised. All questions have been answered. Patient appears to understand informatio n, but if you have any questions please call or respond to this email. Paphpv/STD sent Mammo ordered Irregular periods 396329 07 N92.6 Was taking SLYND. Ran out. Wants to restart Will complete 3mos and return for med check to ensure doing well as did not return for med check of this previously . SLYND samples given. [id number] KELVIN [facility] [address] [address] 09/07/2021 15:56:04 09/07/2021 17:02:59 Gynecologic examination [id number] Z01.419 Suggested Calcium with Vitamin D 1200-1500m g daily. Patient advised to get an annual flu shot in the fall and she could obtain at [facility] or [facility] care clinic. Also to obtain TDap vaccinatio n if you have not had one in the last 10 years. Recommend yearly mammograms . Encouraged monthly self breast exams. Encourage safe sexual practices, to use condoms and limit partners if not already in a monogamous relationsh ip. Engage in daily exercise of low impact aerobic exercise 45-60 minutes 4-5 times weekly. Avoid tobacco and illicit drugs as well as using moderation with alcohol intake less than 1-2 8 oz beverages daily. This lifestyle behavior pattern will lead to less health conditions and longer life span. If BMI greater than 25 weight watchers or dietary consult advised. All questions have been answered. Patient appears to understand informatio n, but if you have any questions please call or respond to this email. Pap/hpv sent STD Screen declined (already updated) Genetic Screen discussed Colon Screen n/a Dexa Screen n/a Routine Labs UTD PCPMammo ordered Vaginitis [id number] N76.0 Refill of flagyl to have on hand in case has BV while on vacation. [id number] Madelyn Maher [facility] [address],[facility] [place] [address] 11/26/2020 16:13:07 11/26/2020 16:40:43 Contraception care management [id number] Z30.9 Wants to take a break from POP.Consid ering . Knows the risk in advanced maternal age.Will stop slynd and track her cycles to see if they are regular as this will need to happen to help achieve . If not regular, return to office to discuss. Understand ing verbalized . Time spent in visit is a total of 15 mins with at least 50% of visit consisting of counseling and review of plan of care. Additional precaution williams measures were taken to minimize potential exposure to the Covid-19 virus during this patient s visit, including available hand design center consultant upon arrive, temperatur e check and being asked a series of screening questions. All staff wore face coverings during this encounter, as well as provided additional cleaning and sanitizing of all surfaces, including countertop s, pens, chairs, door handles, light switches, etc, prior to and following the patient s visit. [id number] Madelyn Maher [facility] [address] [address] 08/17/2021 13:00:56 08/17/2021 13:37:40 Venereal disease screening [id number] Z11.3 N76.0 We agreed to updated vag cx & urine std screen today.Will call with Yue pretty Time spent in visit is a total of 15 mins with at least 50% of visit consisting of counseling and review of plan of care.Addit ional precaution williams measures were taken to minimize potential exposure to the Covid-19 virus during this patient s visit, including available hand design center consultant upon arrive, temperatur e check and being asked a series of screening questions. All staff wore face coverings during this encounter, as well as provided additional cleaning and sanitizing of all surfaces, including countertop s, pens, chairs, door handles, light switches, etc, prior to and following the patient s visit. Reproducti ve care management [id number] Z31.9 Interested in talking with our fertility specialist Karen Lockett regarding after 40yo.Will make appt for consult. [id number] Sharon Vences [facility] [address] [address] 02/15/2022 10:06:50 02/15/2022 12:41:26 Venereal disease screening [id number] Z11.3 Exam WNLWe agreed to update STI testing and vaginitis panelBlood STI panel orderedWil l notify patient with results when availableV ulvar care guidelines discussedC ondom use encouraged Time spent in visit is a total of 20 mins with at least 50% of visit consisting of counseling and review of plan of care. Sexually t ransmitted infectious disease 3824589 A64 Vaginal odor 152415970 N 89.8 [id number] [facility]elyn [facility]her [facility] [address] [address] 09/20/2022 15:21:01 09/21/2022 18:38:00 Gynecologic examination 59253568 Z01.419 Z11.51 Suggested Calcium with Vitamin D 1200-1500m g daily. Patient advised to get an annual flu shot in the fall and she could obtain at [facility] or [facility] take care clinic. Also to obtain TDap vaccinatio n if you have not had one in the last 10 years. Recommend yearly mammograms . Encouraged monthly self breast exams. Encourage safe sexual practices, to use condoms and limit partners if not already in a monogamous relationsh ip. Engage in daily exercise of low impact aerobic exercise 45-60 minutes 4-5 times weekly. Avoid tobacco and illicit drugs as well as using moderation with alcohol intake less than 1-2 8 oz beverages daily. This lifestyle behavior pattern will lead to less health conditions and longer life span. If BMI greater than 25 weight watchers or dietary consult advised. All questions have been answered. Patient appears to understand informatio n, but if you have any questions please call or respond to this email. Pap/hpv sentSTD Screen declined (already updated)Ge netic Screen discussedC olon Screen n/aDexa Screen n/aRoutine Labs UTD PCPMammo ordered Irregular periods 345032 07 N92.6 Will update testing & reach out with results. Sexually t ransmitted infectious disease 6565147 A64 Requested update for Hep B equivocal resultHad Hep B vaccinatio n in the past. Screening mammography [id number] 614441 Z12.31 [id number] Onelia Brown [place] [address],[place] [address] 09/22/2022 14:59:58 09/22/2022 16:14:31 Irregular periods 71700826 N92.6 [id number] Madelyn Maher [facility] [address],[place] [address] 01/11/2023 15:56:43 01/12/2023 17:41:24 Pain in pelvis 65333243 R10.2 Today we agreed to update USDeclined need std screenWill reach out with results. Patient is to contact office or go to nearest ED/Urgent care if fever >/= 100.1, pain, excessive bleeding, unusual drainage or swelling in area of concern; or experienci ng worsening sx's or new onset of concerning sx's. Understand ing verbalized . All questions answered to patient satisfacti on. Time spent in visit is a total of 26 mins with at least 50% of visit consisting of counseling and review of plan of care. Venereal d isease screening 017974220 Z11.3 We agreed to repeat this lab at a different lab company to ensure these results are valid.Not certain an equivocal result requires further evaluation especially since Hep surface antigens are negative. [id number] [facility] [address],[place] [address] 01/13/2023 12:32:22 01/13/2023 13:12:24 Pain in pelvis 12999389 R10.2 [id number] Madelyn Maher [facility] [address],[place] [address] 03/14/2023 15:55:14 03/14/2023 16:23:18 Pain in pelvis 28197403 R10.2 Today we agreed to update US due to sharp adnexal pain on examUpdate d std screen sent-new sexual partner & previous partner unfaithful .Will reach out with results. Patient is to contact office or go to nearest ED/Urgent care if fever >/= 100.1, pain, excessive bleeding, unusual drainage or swelling in area of concern; or experienci ng worsening sx's or new onset of concerning sx's. Understand ing verbalized . All questions answered to patient satisfacti on. Time spent in visit is a total of 26 mins with at least 50% of visit consisting of counseling and review of plan of care. [id number] Patricia Rapp [place] [address],[place] [address] 03/20/2023 12:44:46 03/20/2023 13:32:38 Pain in pelvis 67646161 R10.2 [id number] Madelyn Maher [facility] [address],[place] [address] 05/25/2023 17:15:31 05/30/2023 11:40:12 Vaginitis 23107832 N76.0 Suspect BV on examRx sentCounse led on medication R/B's, Most common side effects, & use. All questions were answered to patient satisfacti on. Consider Boric acid vaginal therapy if this becomes recurrent issue. Refill of flagyl to have on hand in case has BV while on vacation. Time spent in visit is a total of 21 mins with at least 50% of visit consisting of counseling and review of plan of care. [id number] Veronica Calzada [place] [address],[place] [address] 02/27/2024 10:01:48 02/27/2024 10:39:50 Urinary symptoms 224051977 R39.9 [id number] Sharon VencesKELVIN [place] [address] [address] 06/18/2024 15:51:21 06/19/2024 10:18:09 Gynecologic examination 38101145 Z01.419 WWEBC - declinedPa p - done todaySTI screen - gc/ct/tric h testing added to pap, HIV/Hep B&C/Syphil is testing ordered per pt requestMaetta xavier [facility] - [facility] in 1 yr or sooner if needed Suggested Calcium with Vitamin D daily. Patient advised to get an annual flu shot in the fall and she could obtain at local pharmacy. Also to obtain TDap vaccinatio n if you have not had one in the last 10 years. Recommend yearly mammograms . Encouraged monthly self breast exams. Encourage safe sexual practices, to use condoms and limit partners if not already in a monogamous relationsh ip. Engage in regular exercise. Avoid tobacco and illicit drugs. This lifestyle behavior pattern will lead to less health conditions and longer life span. If BMI greater than 25 dietary consult advised. All questions have been answered. Abnormal u terine bleeding [id number] 9100 N93.9 pelvic u/s and labs ordereddis cussed possible further testing pending resultsque stions answered, precaution s discussed Time spent in visit is a total of 30 mins with at least 50% of visit consisting of counseling and review of plan of care. Venereal d isease screening 826907114 Z11.3 Sexually t ransmitted infectious disease 0065858 A64 [id number] Patricia Rapp [place] [address] [address] 06/27/2024 10:55:44 06/27/2024 12:07:49 Abnormal uterine bleeding 9815867025 9100 N93.9 [id number] Mauricio Laurent MD [place] [address] [address] 07/11/2024 15:35:18 07/11/2024 16:55:12 Endometrial polyp 0428825800 N84.0 this patient is a 43-year-ol d female presents for abnormal uterine bleeding. She has an endometria l polyp. We have agreed to perform hysterosco py D&C with polypectom y. She understand s the risks, benefits, and alternativ es. She has completed the informed consent process and is ready to proceed. Abnormal u terine bleeding [id number] 9100 N93.9 Health Concerns Section Related Observation LastModified by Organization Detai ls LastModified Time None Recorded Concern Status LastModified by Organization Details LastModified Time None Recorded Advance Directives Directive N: Payers Encounter Date Sequence Insurance Name Policy Number Policy Sutherland Covered Member ID Sutherland Member ID Guarantor Name 05/25/[address] [facility] [employer] [id number] Corina M Erin [id number] OI Corina M Erin 02/27/[address] [facility] [employer] [id number] Corina M Erin [id number] OI Corina M Erin 06/18/[address] [facility] [employer] [id number] Corina M Erin [id number] OI Corina M Erin 06/27/[address] [facility] [employer] [id number] Corina M Erin [id number] OI Corina M Erin 07/11/[address] [facility] [employer] [id number] Corina M Erin [id number] OI Corina M Erin Notes Date Note Type Note Provider Name and Address Organization Details Recorded Time 05/25/2023 text/html Vaginal/Vulvar ProblemReported bypatient.Location:[facility] Onset/Timing:abrupt Duration:present for 1-2 weeks Quality:itching; irritation; +d/c and odor Severity:mild Context:sexually active; history of recurrent vaginal infections Alleviating Factors:none Aggravating Factors:none Associated Symptoms:no vaginal pain; no vulvar itching/irritation; no vulvar swelling/erythema; no vulvar pain; no vulvar lesions; no pelvic pain; no dyspareunia; no dysuria; no fever; no abdominal pain;vaginal itching;vaginal irritation Neg pain of abd/pelvis/flankNeg urinary sx'sNeg GI sx'sNeg N/V/F/C/D Madelyn Maher, KELVIN- [address], [place], [address], [facility] 05/30/2023 10:02:44 06/18/2024 text/html Annual GYNReport ed bypatient.Menstrual cycle:Bleeding lasts more than 7 days;Irregular cycle intervals Urinary symptoms:No hematuria; No incontinence Vulva:No genital lesion Vagina:Normal vaginal discharge Breast:No breast pain; No breast lump; No nipple discharge Current Contraception: control not practiced Sexual complaints:No sexual complaints; No pain during intercourse; Normal libido Menopausal Symptoms:No menopausal symptoms; Normal vaginal lubrication Psychological symptoms:No depression; No anxiety; No PMDD Preventive measures:Encourage self breast examination; Encourage regular exercise; Encourage no tobacco use; Encourage regular mammograms starting age 38Notes:43yo wwelast pap 09/2022 : nilm, HPV (-)has been having vaginal bleeding on and off x 1 month. Flow comes and goes, alternates between light/moderate. No heavy bleeding. Prior to this no issues with AUB/monthly periods.would like STI testing today KELVIN Cox [address], [place], [address], [facility] 06/19/2024 09:27:18 07/11/2024 text/html this patient is a 43-year-old female with irregular bleeding for several months. She had an ultrasound to evaluate her irregular bleeding. A endometrial polyp was discovered. We discussed treatment, we agreed to treat asymptomatic endometrial polyp. We agreed to hysteroscopy D and C with polypectomy. The patient understands the procedure. The procedure was described to the patient in great detail. the patient also understands the risks. The risks were also explained in detail. She understands that injuries May occur during surgery. She understands these injuries can result in hospitalization, more surgery, and severe illness. She understands there is risk of hemorrhage and infection. Mauricio Laurent MD [address], [place], [address], [facility] 07/11/2024 16:53:08 OBGyn Episode Ob Episode Information Episode Created Date Number of Fetuses Patient Bloodtype Patient rh Status Prepregnancy Weight lbs Domestic Partner Domestic Partner Phone Father Name Show Girl Status 03/30/20 1 CLOSED Fetus Data First Name Last Name Admitted to NICU Weight (g) Sex Living Outcome Pediatric Complications Fetus ID Race Codes Race Delivery Type , Induced 5466 Theodore Calculation Initial Theodore Date Initial Exam Date Initial Exam Provider Initial Ultrasound Date Last Menstrual Period Date Ultra Sound Weeks Gestation 0 Eighteen To Twenty Week Theodore Update Ultra Sound Date Fundal Height At Umbil Quickening Date Ultra Sound Latest Weeks Gestation Final Theodore Confirmed By Final Theodore Confirmed Date Final Theodore Date Ultra Sound Latest Days Gestation 0 0 Menstrual History Last Menstrual Date Menses Monthly On Bcp Conception Prior Menses Frequency Hcg Plus Date Menarche Onset Age Delivery Information Delivery Date Delivery Type Labor Anesthesia Weeks Gestation Incision Type Labor Labor Length Hrs Delivered By Post Complications Tubal Sterilization Discharge Date Comments 6 Discharge Information Feeding Method Contraceptive Method Maternal HG B and HCT Levels Ob Episode Information Episode Created Date Number of Fetuses Patient Bloodtype Patient rh Status Prepregnancy Weight lbs Domestic Partner Domestic Partner Phone Father Name Show Girl Status 03/30/20 1 CLOSED Fetus Data First Name Last Name Admitted to NICU Weight (g) Sex Living Outcome Pediatric Complications Fetus ID Race Codes Race Delivery Type , Induced 5467 Theodore Calculation Initial Theodore Date Initial Exam Date Initial Exam Provider Initial Ultrasound Date Last Menstrual Period Date Ultra Sound Weeks Gestation 0 Eighteen To Twenty Week Theodore Update Ultra Sound Date Fundal Height At Umbil Quickening Date Ultra Sound Latest Weeks Gestation Final Theodore Confirmed By Final Theodore Confirmed Date Final Theodore Date Ultra Sound Latest Days Gestation 0 0 Menstrual History Last Menstrual Date Menses Monthly On Bcp Conception Prior Menses Frequency Hcg Plus Date Menarche Onset Age Delivery Information Delivery Date Delivery Type Labor Anesthesia Weeks Gestation Incision Type Labor Labor Length Hrs Delivered By Post Complications Tubal Sterilization Discharge Date Comments 5 Discharge Information Feeding Method Contraceptive Method Maternal HG B and HCT Levels Ob Episode Information Episode Created Date Number of Fetuses Patient Bloodtype Patient rh Status Prepregnancy Weight lbs Domestic Partner Domestic Partner Phone Father Name Show Girl Status 03/30/20 1 CLOSED Fetus Data First Name Last Name Admitted to NICU Weight (g) Sex Living Outcome Pediatric Complications Fetus ID Race Codes Race Delivery Type , Induced 5465 Theodore Calculation Initial Theodore Date Initial Exam Date Initial Exam Provider Initial Ultrasound Date Last Menstrual Period Date Ultra Sound Weeks Gestation 0 Eighteen To Twenty Week Theodore Update Ultra Sound Date Fundal Height At Umbil Quickening Date Ultra Sound Latest Weeks Gestation Final Theodore Confirmed By Final Theodore Confirmed Date Final Theodore Date Ultra Sound Latest Days Gestation 0 0 Menstrual History Last Menstrual Date Menses Monthly On Bcp Conception Prior Menses Frequency Hcg Plus Date Menarche Onset Age Delivery Information Delivery Date Delivery Type Labor Anesthesia Weeks Gestation Incision Type Labor Labor Length Hrs Delivered By Post Complications Tubal Sterilization Discharge Date Comments 1 Discharge Information Feeding Method Contraceptive Method Maternal HG B and HCT Levels Ob Episode Information Episode Created Date Number of Fetuses Patient Bloodtype Patient rh Status Prepregnancy Weight lbs Domestic Partner Domestic Partner Phone Father Name Show Girl Status 03/30/20 20 1 CLOSED Fetus Data First Name Last Name Admitted to NICU Weight (g) Sex Living Outcome Pediatric Complications Fetus ID Race Codes Race Delivery Type 3826.95 [id number] F Full Term 5464 Vaginal Delivery Theodore Calculation Initial Theodore Date Initial Exam Date Initial Exam Provider Initial Ultrasound Date Last Menstrual Period Date Ultra Sound Weeks Gestation 0 Eighteen To Twenty Week Theodore Update Ultra Sound Date Fundal Height At Umbil Quickening Date Ultra Sound Latest Weeks Gestation Final Theodore Confirmed By Final Theodore Confirmed Date Final Theodore Date Ultra Sound Latest Days Gestation 0 0 Menstrual History Last Menstrual Date Menses Monthly On Bcp Conception Prior Menses Frequency Hcg Plus Date Menarche Onset Age Delivery Information Delivery Date Delivery Type Labor Anesthesia Weeks Gestation Incision Type Labor Labor Length Hrs Delivered By Post Complications Tubal Sterilization Discharge Date Comments 9 40 Alexia Discharge Information Feeding Method Contraceptive Method Maternal HG B and HCT Levels Ob Episode Information Episode Created Date Number of Fetuses Patient Bloodtype Patient rh Status Prepregnancy Weight lbs Domestic Partner Domestic Partner Phone Father Name Show Girl Status 03/30/20 20 1 CLOSED Fetus Data First Name Last Name Admitted to NICU Weight (g) Sex Living Outcome Pediatric Complications Fetus ID Race Codes Race Delivery Type 2976.47 0704 M Full Term 5463 Vaginal Delivery Theodore Calculation Initial Theodore Date Initial Exam Date Initial Exam Provider Initial Ultrasound Date Last Menstrual Period Date Ultra Sound Weeks Gestation 0 Eighteen To Twenty Week Theodore Update Ultra Sound Date Fundal Height At Umbil Quickening Date Ultra Sound Latest Weeks Gestation Final Theodore Confirmed By Final Theodore Confirmed Date Final Theodore Date Ultra Sound Latest Days Gestation 0 0 Menstrual History Last Menstrual Date Menses Monthly On Bcp Conception Prior Menses Frequency Hcg Plus Date Menarche Onset Age Delivery Information Delivery Date Delivery Type Labor Anesthesia Weeks Gestation Incision Type Labor Labor Length Hrs Delivered By Post Complications Tubal Sterilization Discharge Date Comments 4 40 Brendan Discharge Information Feeding Method Contraceptive Method Maternal HG B and HCT Levels
--- OUTSIDE RECORDS SUMMARY | 2024-07-24 01:19 | XMS_ITS | Data Portability ---
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 Patient instructed to purchase donut pillow to sit on and follow up following xray. [email or web address] Not available 10/10/2016 21:43:11 Plan of Treatment Reminders Order Date Submit Date Provider Last Modified By Organization Details Last Modified Time Details Appointments None recorded. Lab CBC 2016 017 [facility], [address] [place] [address], [address], [place], [address], 7 06:16:20 TSH, ultra-sens itive, serum 2016 017 [facility], [address] [place] [address], [address], [place], [address], 7 06:16:21 CMP, serum or plasma 2016 017 [facility], [address] [place] [address], [address], [place], [address], 7 06:16:20 lipid panel, serum 2016 017 [facility], [address], [address], [place], [address], 7 06:16:21 TSH, ultra-sens itive, serum 2017 019 [facility], [address], [address], [place], [address], 9 03:04:37 lipid panel, serum 2017 019 [facility], [address], [address], [place], [address], 9 03:04:38 CMP, serum or plasma 2017 019 [facility], [address], [address], [place], [address], 9 03:04:38 CBC 2017 022 [email or web address], [address], [address], [place], [address], 2 15:21:38 HbA1c (hemoglobi n A1c), blood 2017 019 [facility], [address], [address], [place], [address], 9 03:04:38 Referral finance associate referral 2016 017 Not available 7 11:56:33 physical therapy back referral 2016 017 y[facility] ([facility]) Scheduling, [address], [place], [address], 7 14:12:06 Procedures None recorded. Surgeries None recorded. Imaging XR, lumbosacra l spine 2016 017 [facility] Registration/ Lab, [address] [place], [address], 7 16:36:53 XR, lumbar spine 2016 017 [facility] Registration/ Lab, [address] [place], [address], 7 10:18:28 Medication Orders ibuprofen 800 mg tablet 2015 016 [facility][id number], [address], [place], [id number], 6 16:20:15 Soma 350 mg tablet 2015 016 [id number], [address], [place], [id number], 8 12:27:46 ibuprofen 800 mg tablet 2015 016 endricks [facility] #[id number], [address], [place], [id number], 6 16:07:50 cyclobenza monica 10 mg tablet 2016 017 [facility] #[id number], [address], [place], [id number], 8 12:27:42 ranitidine 150 mg tablet 2017 018 [facility] #[id number], [address], [place], [id number], 8 13:01:53 Patient TargetsNo targets recorded. Patient Instructions Encounter Date Encounter Id Patient Instructions Last Modified By Organization Details Last Modified Time 01/06/2016 [id number] healthy upper back: exercises Not available 01/06/2016 16:19:27 shoulder bursitis: exercises [email or web address] Not available 01/06/2016 16:19:41 no heavy lifting, use knees to lift, avoid sleeping on abdomen, continue with exercises to strengthen back muscles. Not available 01/06/2016 16:18:00 02/03/2016 [id number] carpal tunnel syndrome: care instructions Not available 02/03/2016 16:07:49 carpal tunnel syndrome: exercises Not available 02/03/2016 16:07:49 08/19/2016 [id number] back care and preventing injuries: care instructions Not available 08/19/2016 16:48:56 10/10/2016 [id number] tailbone injury: care instructions [email or web address] Not available 10/10/2016 14:31:47 03/16/2018 [id number] diet weight loss ssuthan Not availabl e 03/16/2018 12:57:38 learning about healthy weight ssuthan Not available 03/16/2018 12:57:38 advised to lose weight ssuthan Not available 03/16/2018 12:57:38 weight loss tips ssuthan Not available 03/16/2018 12:57:38 Reason for Referral 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 Pain in left foot Referring Physician: Amando Echevarria, Internal Medicine, Encounter Date: 08/19/2016 Referring Physician: Nini fitch, Cafeteria Helper, Encounter Date: 10/10/2016 Results Created Date Observation Date Name Description Value Unit Range Abnormal Flag Note LastModifiedBy Organization Detail LastModifiedTime 09/10/19 17 09/10/2016 CBC WBC 7.6 x10e3 /uL 3.4-10 .8 Not Available [facility] ([facility]) [address], [place], [address], 09/10/2016 06:16:20 09/10/19 17 09/10/2016 CBC RBC 4.54 x10e6 /uL 3.77-5 .28 Not Available [facility] ([facility]) [address] [place], [address], 09/10/2016 06:16:20 09/10/19 17 09/10/2016 CBC hemoglobin 13.2 g/dL 11.1-1 5.9 Not Available [facility] ([facility]) [address] [place], [address], 09/10/2016 06:16:20 09/10/19 17 09/10/2016 CBC hematocrit 39.6 % 34.0-4 6.6 Not Available [facility] ([facility]) [address], [place], [address], 09/10/2016 06:16:20 09/10/19 17 09/10/2016 CBC MCV 87 fL 79-97 Not Available [facility] ([facility]) [address], [place], [address], 09/10/2016 06:16:20 09/10/19 17 09/10/2016 CBC MCH 29.1 pg 26.6-3 3.0 Not Available [facility] ([facility]) [address], [place], [address], 09/10/2016 06:16:20 09/10/19 17 09/10/2016 CBC MCHC 33.3 g/dL 31.5-3 5.7 Not Available [facility] ([facility]) [address], [place], [address], 09/10/2016 06:16:20 09/10/19 17 09/10/2016 CBC RDW 13.6 % 12.3-1 5.4 Not Available [facility] ([facility]) [address], [place], [address], 09/10/2016 06:16:20 09/10/19 17 09/10/2016 CBC platelets 323 x10e3 /uL 150-37 9 Not Available [facility] ([facility]) [address], [place], [address], 09/10/2016 06:16:20 09/10/19 17 09/10/2016 CBC neutrophils 57 % Not Avai lable [facility] ([facility]) [address] [place], [address], 09/10/2016 06:16:20 09/10/19 17 09/10/2016 CBC lymphs 37 % Not Available [facility] ([facility]) [address] [place], [address], 09/10/2016 06:16:20 09/10/19 17 09/10/2016 CBC monocytes 5 % Not Availa ble [facility] ([facility]) [address] [place], [address], 09/10/2016 06:16:20 09/10/19 17 09/10/2016 CBC eos 1 % Not Available [facility] ([facility]) [address], [address], 09/10/2016 06:16:20 09/10/19 17 09/10/2016 CBC basos 0 % Not Available [facility] ([facility]) [address] [place], [address], 09/10/2016 06:16:20 09/10/19 17 09/10/2016 CBC immature cells FISHING GAME WARDEN Not Available [facility] ([facility]) [address], [address], 09/10/2016 06:16:20 09/10/19 17 09/10/2016 CBC neutrophils (absolute) 4.3 x10e3 /uL 1.4-7. 0 Not Available [facility] ([facility]) [address], [address], 09/10/2016 06:16:20 09/10/19 17 09/10/2016 CBC lymphs (absolute) 2.8 x10e3 /uL 0.7-3. 1 Not Available [facility] ([facility]) [address], [address], 09/10/2016 06:16:20 09/10/19 17 09/10/2016 CBC monocytes(ab solute) 0.4 x10e3 /uL 0.1-0. 9 Not Available [facility] ([facility]) [address], [place], [address], 09/10/2016 06:16:20 09/10/19 17 09/10/2016 CBC eos (absolute) 0.1 x10e3 /uL 0.0-0. 4 Not Available [facility] ([facility]) [address] [place], [address], 09/10/2016 06:16:20 09/10/19 17 09/10/2016 CBC baso (absolute) 0.0 x10e3 /uL 0.0-0. 2 Not Available [facility] ([facility]) [address], [place], [address], 09/10/2016 06:16:20 09/10/19 17 09/10/2016 CBC immature granulocytes 0 % Not Available [facility] ([facility]) [address], [place], [address], 09/10/2016 06:16:20 09/10/19 17 09/10/2016 CBC immature grans (abs) 0.0 x10e3 /uL 0.0-0. 1 Not Available [facility] ([facility]) [address] [place], [address], 09/10/2016 06:16:20 09/10/19 17 09/10/2016 CBC NRBC FISHING GAME WARDEN Not Available [facility] ([facility]) [address], [address], 09/10/2016 06:16:20 09/10/19 17 09/10/2016 CBC hematology comments: FISHING GAME WARDEN Not Available [facility] ([facility]) [address], [place], [address], 09/10/2016 06:16:20 09/10/19 17 09/10/2016 CMP, serum or plasm a glucose, serum 90 mg/dL 65-99 Not Available [facility] ([facility]) [address] [place], [address], 09/10/2016 06:16:20 09/10/19 17 09/10/2016 CMP, serum or plasm a BUN 13 mg/dL 6-20 Not Available [facility] ([facility]) [address] [place], [address], 09/10/2016 06:16:20 09/10/19 17 09/10/2016 CMP, serum or plasm a creatinine, serum 0.81 mg/dL 0.57-1 .00 Not Available [facility] ([facility]) [address] [place], [address], 09/10/2016 06:16:20 09/10/19 17 09/10/2016 CMP, serum or plasm a eGFR if nonafricn AM 92 mL/mi n/1.7 3 >59 Not Available [facility] ([facility]) [address] [place], [address], 09/10/2016 06:16:20 09/10/19 17 09/10/2016 CMP, serum or plasm a eGFR if africn AM 107 mL/mi n/1.7 3 >59 Not Available [facility] ([facility]) [address] [place], [address], 09/10/2016 06:16:20 09/10/19 17 09/10/2016 CMP, serum or plasm a sodium, serum 138 mmol/ L 134-14 4 Not Available [facility] ([facility]) [address] [place], [address], 09/10/2016 06:16:20 09/10/19 17 09/10/2016 CMP, serum or plasm a potassium, serum 4.3 mmol/ L 3.5-5. 2 Not Available [facility] ([facility]) [address], [place], [address], 09/10/2016 06:16:20 09/10/19 17 09/10/2016 CMP, serum or plasm a chloride, serum 99 mmol/ L 96-106 Not Available [facility] ([facility]) [address] [place], [address], 09/10/2016 06:16:20 09/10/19 17 09/10/2016 CMP, serum or plasm a carbon dioxide, total 21 mmol/ L 18-29 Not Available [facility] ([facility]) [address] [place], [address], 09/10/2016 06:16:20 09/10/19 17 09/10/2016 CMP, serum or plasm a calcium, serum 9.7 mg/dL 8.7-10 .2 Not Available [facility] ([facility]) [address], [address], 09/10/2016 06:16:20 09/10/19 17 09/10/2016 CMP, serum or plasm a phosphorus, serum 3.9 mg/dL 2.5-4. 5 Not Available [facility] ([facility]) [address], [address], 09/10/2016 06:16:20 09/10/19 17 09/10/2016 CMP, serum or plasm a protein, total, serum 7.4 g/dL 6.0-8. 5 Not Available [facility] ([facility]) [address] [place], [address], 09/10/2016 06:16:20 09/10/1909/10/2016 CMP, serum or plasm a albumin, serum 4.1 g/dL 3.5-5. 5 Not Available [facility] ([facility]) [address] [place], [address], 09/10/2016 06:16:20 09/10/19 17 09/10/2016 CMP, serum or plasm a bilirubin, total 0.4 mg/dL 0.0-1. 2 Not Available [facility] ([facility]) [address] [place], [address], 09/10/2016 06:16:20 09/10/19 17 09/10/2016 CMP, serum or plasm a alkaline phosphatase, S 43 IU/L 39-117 Not Available [facility] ([facility]) [address] [place], [address], 09/10/2016 06:16:20 09/10/19 17 09/10/2016 CMP, serum or plasm a LDH 174 IU/L 119-22 6 Not Available [facility] ([facility]) [address] [place], [address], 09/10/2016 06:16:20 09/10/19 17 09/10/2016 CMP, serum or plasm a AST (SGOT) 18 IU/L 0-40 Not Available [facility] ([facility]) [address] [place], [address], 09/10/2016 06:16:20 09/10/19 17 09/10/2016 CMP, serum or plasm a ALT (SGPT) 13 IU/L 0-32 Not Available [facility] ([facility]) [address] [place], [address], 09/10/2016 06:16:20 09/10/19 17 09/10/2016 CMP, serum or plasm a GGT 19 IU/L 0-60 Not Available [facility] ([facility]) [address] [place], [address], 09/10/2016 06:16:20 09/10/19 17 09/10/2016 CMP, serum or plasm a cholesterol, total 165 mg/dL 100-19 9 Not Available [facility] ([facility]) [address] [place], [address], 09/10/2016 06:16:20 09/10/19 17 09/10/2016 lipid panel , serum triglyceride s 81 mg/dL 0-149 Not Available [facility] ([facility]) [address] [place], [address], 09/10/2016 06:16:21 09/10/19 17 09/10/2016 lipid panel , serum HDL cholesterol 49 mg/dL >39 Not Available [facility] ([facility]) [address], [place], [address], 09/10/2016 06:16:21 09/10/19 17 09/10/2016 lipid panel , serum VLDL cholesterol blas 16 mg/dL 5-40 Not Available [facility] ([facility]) [address], [place], [address], 09/10/2016 06:16:21 09/10/19 17 09/10/2016 lipid panel , serum LDL cholesterol calc 100 mg/dL 0-99 above high normal Not Available [facility] ([facility]) [address] [place], [address], 09/10/2016 06:16:21 09/10/19 17 09/10/2016 lipid panel , serum comment: FISHING GAME WARDEN Not Available [facility] ([facility]) [address] [place], [address], 09/10/2016 06:16:21 09/10/19 17 09/10/2016 lipid panel , serum LDL/HDL ratio 2.0 ratio _unit s 0.0-3. 2 LDL/H DL RATIO MEN WOMEN 1/2 AVG.R ISK 1.0 1.5 AVG.R ISK 3.6 3.2 2X AVG.R ISK 6.2 5.0 3X AVG.R ISK 8.0 6.1 Not Available [facility] ([facility]) [address] [place], [address], 09/10/2016 06:16:21 09/10/19 17 09/10/2016 TSH, ultra -sens itive , serum TSH 1.590 uIU/m L 0.450- 4.500 Not Available [facility] ([facility]) [address], [place], [address], 09/10/2016 06:16:21 08/21/19 17 08/19/2016 XR, thora cic spine No observ ation record ed. [facility] Not Available 2016 12:42:30 08/21/19 17 08/19/2016 XR, lumbo sacra l spine No observ ation record ed. [facility] [address] [place], [address], 08/22/2016 12:42:30 09/30/19 17 09/28/2016 XR, foot No observ ation record ed. [email or web address] Not Available 2016 17:13:09 10/12/19 17 10/10/2016 XR, lumba r spine No observ ation record ed. [email or web address] Not Available 10/2016 10:55:23 10/12/19 17 10/10/2016 XR, lumbo sacra l spine No observ ation record ed. [facility] Registration/ Lab [address] [place], [address], 10/11/2016 13:04:40 Result Notes None recorded. Problems Name Problem SNOMED Code Status Onset Date Resolution Date Notes Provider Name and Address Organization Details Recorded Time Body mass index 30+ - obesity 181603512 Active 2017 Ian Nguyễn MD Attn: Accounting, [address] [place], [address], [facility] 8 12:56:37 Gastroesop hageal reflux disease without esophagiti s 872219894 Active 2017 Ian Nguyễn MD Attn: Accounting, [address] [facility], [place], [address], [facility] 8 13:01:16 Compressio n injury of nerve 17166794 Active Ese [place], [place] [facility] 5 14:40:59 Proteinuri a 29945418 [place] Ese [place]kr[place] [facility] 5 11:13:34 Strain of back muscle 830571261 [place] [facility] 6 16:07:49 Carpal tunnel syndrome 21551811 [place] [facility] 6 16:07:49 Pain in left foot 424871771140 107 Active Ese [place] [facility] 6 16:07:49 Problem Notes None recorded. Procedures Surgical History Date Name Laterality Status Provider Name and Address Organization Details Recorded Time 3 Date of Last Pap Smear completed Fina Tellez [place] [facility] 08/14/2014 14:19:47 loop diathermy cone biopsy of cervix uteri completed Ian Nguyễn MD Attn: Accounting[address] [place], [address], [facility] - [facility] 03/16/2018 12:59:30 Imaging Results Imaging Date Name Status LastModified by Organiz ation Details LastModified Time 08/19/2016 XR, thoracic spine completed [facility] Information not available 08/22/2016 12:42:30 08/19/2016 XR, lumbosacral spine completed [facility] [address] [place], [address], 08/22/2016 12:42:30 09/28/2016 XR, foot completed [email or web address] Information no t available 09/29/2016 17:13:09 10/10/2016 XR, lumbar spine completed [email or web address] Information not available 10/14/2016 10:55:23 10/10/2016 XR, lumbosacral spine completed [facility] Registration/Lab [address] [place], [address], 10/11/2016 13:04:40 Procedure Notes None recorded. Medical Equipment None Reported. Allergies No known drug allergies Medications Name Sig Start Date Stop Date Status Note LastModified by Organization Details LastModified Time carisoprodo l 350 mg tablet Take 1 tablet 3 times a day by oral route as directed for 14 days. 03/16 completed Not Available Not Available Not Available cyclobenzap rine 10 mg tablet Take 1 tablet twice a day by oral route. active Not Available Not Available No t Available doxycycline hyclate 100 mg capsule 03/16 completed Not Available Not Available Not Available ibuprofen 800 mg tablet Take 1 tablet every 8 hours by oral route with meals. active Not Available Not Available No t Available meloxicam 15 mg tablet active Not Available Not Available Not Available metronidazo le 500 mg tablet 08/19 completed Not Available Not Available Not Available triamcinolo ne acetonide 0.1 % topical cream 03/16 completed Not Available Not Available Not Available terbinafine HCl 250 mg tablet 08/14 completed Not Available Not Available Not Available ranitidine 150 mg tablet Take 1 tablet twice a day by oral route as needed. active Not Available Not Available No t Available diclofenac sodium 75 mg tablet,cathy yed release 08/14 completed Not Available Not Available Not Available Vitals Date Recorded Body height Body mass index (BMI) Body weight Heart rate Respiratory rate Body temperature Systolic blood pressure Diastolic blood pressure Provider Name and Address Organization Details Last Updated DateTime 8 157.48 cm 34.9 kg/m2 70503.1 4 g 64 /min 12 /min 99.7 [degF] 116 mm[Hg] 76 mm[Hg] JAYY Musa [place] - [facility] 8 12:09:41 Date Recorded Body mass index (BMI) Respiratory rate Body temperature Body weight Body height Heart rate Systolic blood pressure Diastolic blood pressure Provider Name and Address Organization Details Last Updated DateTime 6 32.6 kg/m2 18 /min 98.6 [degF] 96257.4 4186 g 157.48 cm 80 /min 128 mm[Hg] 88 mm[Hg] Fina Tellez [place] [facility] 6 15:47:35 Date Recorded Body temperature Heart rate Body height Body weight Body mass index (BMI) Respiratory rate Systolic blood pressure Diastolic blood pressure Provider Name and Address Organization Details Last Updated DateTime 6 98.6 [degF] 70 /min 157.48 cm 15304.6 07741 g 33.2 kg/m2 16 /min 120 mm[Hg] 70 mm[Hg] Fina Tellez MA [facility] 6 15:31:02 Date Recorded Body height Body weight Body mass index (BMI) Body temperature Heart rate Respiratory rate Systolic blood pressure Diastolic blood pressure Provider Name and Address Organization Details Last Updated DateTime 7 157.48 cm 91364.8 g 34.5 kg/m2 98.6 [degF] 80 /min 24 /min 130 mm[Hg] 70 mm[Hg] Fina Tellez MA [facility] 7 15:39:57 Date Recorded Body height Body weight Body mass index (BMI) Heart rate Respiratory rate Body temperature Systolic blood pressure Diastolic blood pressure Provider Name and Address Organization Details Last Updated DateTime 7 157.48 cm 22741.5 4 g 35.2 kg/m2 80 /min 18 /min 98.6 [degF] 130 mm[Hg] 74 mm[Hg] Fina Tellez MA [facility] 7 14:22:36 Social History Question Answer Notes LastModified by Organizat ion Details LastModified Time Tobacco Smoking Status Never Smoker [facility] 08/14/2014 14:19:22 What Is Your Level Of Alcohol Consumption? Occasional [email or web address] Information not available 08/14/2014 What Is Your Level Of Caffeine Consumption? 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 With Others [email or web address] Information not available 08/14/2014 What Was The Date Of Your Most Recent Tobacco Screening? 03/16/2018 Information not available 01/03/2019 How Many Children Do You Have? 2 [email or web address] Information not available 08/14/2014 Seat Belts Used Routinely Yes [email or web address] Information not available 08/14/2014 Smoke Alarm In Home Yes [email or web address] Information not available 08/14/2014 How Much Tobacco Do You Smoke? No [email or web address] Information not available 08/14/2014 Sex: Unknown Functional Status Question Answer Note LastModified by Organization D etails LastModified Time Are you able to care for yourself? Yes [email or web address] Information n ot available 08/14/2014 Mental Status None recorded. Family History Relationship Description Onset Age of this Age Resolved Age Notes LastModified by Organization Details LastModified Time Mother Diabetes mellitus [email or web address] Not available 08/14 14:19:22 Mother Schizophreni a ssuthan Not available 2017 12:57:55 Medical History Condition Response Other Y Gynecological History Statement/Question Response Menses Monthly Y Abnormal Pap N Date of Last Pap Smear 06/13/2012 Age at First Child 18 LMP Definite Obstetrics History GPAL:G 0 P 0 0 0 0 Past Encounters Encounter ID Performer Location Encounter Start Date Encounter Closed Date Diagnosis/Indication Diagnosis SNOMED-CT Code Diagnosis ICD10 Code Diagnosis Note [id number] [facility] [address] [place] [address] 08/14/2014 14:02:14 08/14/2014 14:45:07 Adult health examination 801846163 recommend eye exam q 2 years, pap q 2 years, dental maintenanc e, regular monthly breast exams Compressio n injury of nerve 64857648 [id number] Ese Angeles [facility] ([facility]) [address] [place] [address] 01/06/2016 15:27:20 01/06/2016 16:28:14 Strain of back muscle 849178113 S39.012D [id number] Parul Vanesa [facility] ([facility]) [address] [place] [address] 02/03/2016 15:21:26 02/03/2016 16:14:49 Carpal tunnel syndrome 50758153 G56.01 Strain of back muscle 26 6199035 S39.012D Pain in left foot 088284 9100 77583 M79.672 avoid over tightness for tie up shoes, recommend open shoe with good arch support for next 4-6 weeks. ice to area if swelling. [id number] Amando Echevarria [facility] ([facility]) [address] [place] [address] 08/19/2016 15:33:49 08/19/2016 16:13:05 Adult health examination 125326038 Z00.00 Pain in left foot 293206 2025 85603 M79.672 Low back pain 561269807 M54.5 [id number] Nini Davis, BALLISTICS EXPERT- [facility] ([facility]) [address] [place] [address] 10/10/2016 14:13:57 10/10/2016 16:20:05 Low back pain 946673053 M54.5 [id number] MD [place] [facility]ges 14 IM [address] [facility] [address] [place] [address] 03/16/2018 11:21:02 03/19/2018 17:07:35 Adult health examination 782500469 Z00.00 Recommende d heart healthy diet with exercise.F /u with Drain Tiler for pelvic exam.Recom mended self breast exam monthly, if suspicious issue - bring it to provider's attentionS afe sexual activity emphasized if you're active.If you have exposure to nicotine or other illicit drugs including alcohol - to scale down and stop the habit. Body mass index 30+ - obesity 446185058 Z68.39 Recommend to loose weight with diet control and exercise. Family his tory of diabetes mellitus 349425665 Z83.3 Mom, wants A1c done Gastroesop hageal reflux disease without esophagitis 981239498 K21.9 Loose weight , avoid soda, spicy stuff, Stop smokingUse medication as prescribed . Health Concerns Section Related Observation LastModified by Organization Detai ls LastModified Time None Recorded Concern Status LastModified by Organization Details LastModified Time None Recorded Advance Directives Directive None Recorded Payers Encounter Date Sequence Insurance Name Policy Number Policy [place] Covered Member ID [place] Member ID Guarantor Name 01/06/2016 1 [employer] - DOS PRIOR TO 20 - [facility] B[employer]ITS PLAN [id number] Corina Khan [id number] Corina Erin 02/03/2016 1 [employer] - DOS PRIOR TO 20 - [facility] B[employer]ITS PLAN [id number] Corina Kahn [id number] Corina Erin 08/19/2016 1 [employer] - DOS PRIOR TO 20 - [facility] [employer]ITS PLAN [id number] Corina Talamantes Erin [id number] Corina Erin 10/10/2016 1 [employer] - DOS PRIOR TO 20 - [facility] [employer] PLAN [id number] Corina Talamantes Erin [id number] Corina Erin 03/16/2018 1 [employer] - DOS PRIOR TO 20 - [facility] [employer]ENEFITS PLAN [id number] Corina Talamantes Erin [id number] 0 Corina Erin Notes Date Note Type Note Provider Name and Address Organization Details Recorded Time 01/06/2016 text/html Back PainReporte d bypatient.Location:pa in is not radiating Quality:sharp Severity:same;moderat e (5-7) Duration:chronic Onset/Timing:first episode (2-3 years) Context:trauma; overuse; physical therapy last year with no benefit Aggravating Factors:movement/posi tioning;twisting;flex ing back Associated Symptoms:no fever; no weak limbs; no numbness of the legs/feet; no tingling; no incontinence DENNIS Lan [facility] 01/06/2016 16:18:20 02/03/2016 text/html foot pain, left dorsal at point of bony projection. Pain with pressure from shoe only. Complains of right wrist pain for 2-3 months, with some weakness to caterer's aide and some paresthesia to hand and arm. Frequently sleeps with right arm folded underneath body while sleeping. DENNIS Lan [facility] 02/03/2016 16:08:07 08/19/2016 text/html Generic HPI TemplateReported bypatient.Notes:Here for routine check up C/o left foot pain especially when she wears flats Also c/o lower back pain that is occuring more often DENNIS Parkinson [facility] 08/19/2016 16:08:48 10/10/2016 text/html Back PainReporte d bypatient.Location:pa in is not radiating Severity:improving Onset/Timing:first episode; 4days ago Context:trauma Alleviating Factors:rest; relieved by changing position Associated Symptoms:no fever; no weak limbs; no numbness of the legs/feet; no tingling; no incontinence; no shortness of breath Patient fell while walking down carpeted stairs at home 4 days ago. States she fell on her bottom and went down 4 to 5 steps. Patient is not having pain while walking, just pain when sitting and unable to sit on bottom. CHRISTELLE Nichols Attn: Accounting,[address] [facility], [place], [address], [facility] 10/10/2016 21:43:53 03/16/2018 text/html Generic HPI TemplateReported bypatient.Notes:Here to establish care as a new pt,.Reflux/GERDReport ed bypatient.Symptomshea rtburn Quality:burning Severity:waking up at night Duration:present for 1-6 months Context:non-smoker; no drug/alcohol abuse Alleviating Factors:protein pump inhibitors Associated Symptoms:no difficulty swallowing; no weight loss Ian Nguyễn MD Attn: Accounting,[address] [facility], [place], [address], [facility] 03/16/2018 14:25:56 OBGyn Episode No OBEpisode recorded.
--- OUTSIDE RECORDS SUMMARY | 2024-07-24 01:19 | XMS_ITS | Encounter Summary ---
Author Organization [facility] Healthcare Address [address] [place] [address] Care Team Providers Care Medical Illustrator Name Role Phone Logan ROBERTSON MD, Vahe Dao Unavailable [phone] Michelle Salazar MD Primary Care Pro vider Paul Braden MD Unavailable Donell Akins MD Unavailable [phone] Reason for Visit * Reason Onset Date Comments Referral Review 05/31/2022 Encounter Details Date Type Department Care Team (Late st Contact Info) Description 05/31/2022 Telephone [facility] Specialty Services [address] [place] [address] Miscellaneous, Not In File Referral Review Social History Tobacco Use Types Packs/Day Years Used Date Smoking Tobacco: Never Smokeless Tobacco: Never Alcohol Use Standard Drinks/Week Comments Yes 0 (1 standard drink = 0.6 oz pur e alcohol) AUDIT-C Answer Date Recorded Q1: How often do you have a drink containing alc ohol? 2-3 times a week 06/02/2022 Q2: How many drinks containi ng alcohol do you have on a typical day when you are drinking? 1 or 2 06/02/2022 Q3: How often do you have si x or more drinks on one occasion? 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 Gender Identity Female 10/08/2020 8:14 PM CDT Sexual Orientation Not on file documented as of this encounter Plan of Treatment Not on file documented as of this encounter Visit Diagnoses Not on filedocumented in this encounter Additional Health Concerns Infection Onset Date Last Indicated Resolved Time COVID19 Comment:feb 2020 07/02/2020 07/01/2020 06/12/2022 3:[address] COVID: Suspected 12/06/2022 12/06/2022 12/06/2022 2:13 PM CDT documented as of this encounter Care Teams Medical Illustrator Relationship Specialty Start Date End Date Michelle Salazar MD [address] [place] [address] PCP - General 03/31/20 Vahe Ford III, MD [address] [place] [address] Consulting Physician Rheumatology 10/18/19 Paul Braden MD [address] [place] [address] [place] [address] [place] [address] Consulting Physician Pain Management 11/01/22 Donell Akins MD [address] [place] [address] Consulting Physician Rheumatology 10/26/23 documented as of this encounter
[2024-07-24 11:50] VITALS: BP 145/96; PULSE 72; RESP 16; TEMP 36.7; O2SAT 100
[2024-07-24] MEDS: ACETAMINOPHEN 500 MG TABLET 1000 MG PO (12:18)
--- NOTE | 2024-07-24 14:03 | WPDHPUPDATE1 ---
History and Physical Update Update Date/Time: 07/24/24 14:03 History and Physical has been reviewed, including an updated exam of the patient. There are NO changes in the patient's condition. Risks, benefits, and alternatives have been discussed and questions answered. Patient agrees to proceed with procedure.
--- NOTE | 2024-07-24 14:15 | WPDANESEPPF ---
Anes - Initial Pre Proc Eval Procedure: Operation Date: 07/24/24 13:30 Proposed Procedures p Hysteroscopy, Biopsy of Endometrium and/or Polypectomy - Mauricio Laurent MD Date/Time: 07/24/24 14:15 Surgeon: Mauricio Laurent MD Pre Op Diagnosis: endometrial polyp Patient Data Age: 43 Gender: F Height: 1.57 m Weight: 80.3 kg Last Vital Signs Temp 98.0 F 07/24/24 11:50 Pulse 72 07/24/24 11:50 Resp 16 07/24/24 11:50 BP 145/96 H 07/24/24 11:50 Pulse Ox 100 07/24/24 11:50 O2 Del Method Room Air 07/24/24 11:50 Allergies Allergy/AdvReac Type Severity Reaction Status Date / Time No Known Allergies Allergy Verified 07/24/24 12:25 Home Medications ?Medication ?Instructions ?Recorded ?Confirmed ?Type cyclobenzaprine 10 mg tablet 10 mg PO TID PRN muscle spasm #20 05/21/22 07/17/24 Rx tabs cholecalciferol (vitamin D3) 50 2,000 unit PO DAILY 07/17/24 07/24/24 History mcg (2,000 unit) capsule (Vitamin D3) duloxetine 30 mg capsule,delayed 30 mg PO DAILY 07/17/24 07/24/24 History release esomeprazole magnesium 20 mg 20 mg PO DAILY 07/17/24 07/24/24 History capsule,delayed release semaglutide (weight loss) 1.7 1.7 mg subcut WEEKLY 07/17/24 07/24/24 History mg/0.75 mL subcutaneous pen injector (Alexis) Patient hx anesthesia problems: none Family hx anesthesia problems: none Results Review: All pre-operative results and documents have been reviewed as part of the pre-operative evaluation. [facility] Past Medical History Medical History Uterine bleeding GERD (gastroesophageal reflux disease) Heart murmur Surgical History Surgical History H/O cervical biopsy Family History Family History Mother Hypertension Other Hypertension Social History Social History Smoking status: Never smoker Alcohol intake: current Drinks per week: 3 Living arrangements: with family Occupation/Education: occupation Spiritual care concerns: No Anes - Eval Final PreProcedure Day of Procedure 07/24/24 14:15 Patient weight: obese Lungs: normal air movement Airway: Mallampati scale class II Neurological: alert and oriented Last oral intake: >/= 8 hours ASA classification: II Emergent: no Anesthetic plan: proceed Anesthesia type and monitoring: general GIVS and standard monitoring Results Review: All pre-operative results and documents have been reviewed as part of the pre-operative evaluation. Occ marijuana and cigar smoker. Informed Consent: The patient's anesthetic plan and its attendant risks and benefits were discussed with the patient/family/POA. Questions were solicited and answers provided to the satisfaction of the patient/family/POA.
--- NOTE | 2024-07-24 14:59 | P.OP_ITS ---
Procedure Note - Detailed Date of Procedure 07/24/24 Pre-op Diagnosis endometrial polyp Post-op Diagnosis Other (Thickened endometrium) Procedure Performed Hysteroscopy D&C Surgeon Mauricio Laurent MD Anesthesia MAC Indications abnormal uterine bleeding Findings Thickened endometrium with a ridge of tissue projecting upper like a polyp. No stalk, wide-based ridge. Normal vulva, vagina, cervix. Endometrium normal after D&C Description of Procedure the patient was taken the operating room. She was prepped and draped in the dorsal lithotomy position after induction of mac anesthesia. A speculum was renae sheldon in the vagina. The cervix was grasped with a tenaculum. The cervix was dilated about 1 cm. The hysteroscope was inserted. The intrauterine cavity and endocervix were evaluated. Hysteroscope was withdrawn. A medium-size curette was used to curettage all the surfaces were within the endometrial cavity. the sample was collected on Telfa and sent to pathology. The hysteroscope was reinserted and the above findings were noted. Patient tolerated the procedure well. The speculum and tenaculum were removed. She was taken recovery room in stable condition. Sponge lap and needle counts were correct x2. Estimated Blood Loss 40 Drains No Packing No Pathology Yes Complications No immediate complications Condition Stable Disposition PACU
[2024-07-24 15:00] VITALS: BP 177/99; PULSE 74; RESP 14; O2SAT 97
[2024-07-24] MEDS: LACTATED RINGERS 1,000 ML 30 ML IV CONT (15:00)
[2024-07-24 15:30] VITALS: BP 163/88; PULSE 63
[2024-07-24] MEDS: oxyCODONE HCL (*CRX) 5 MG TAB IR PO (15:41)
[2024-07-24 16:00] VITALS: BP 162/85; PULSE 67
[2024-07-24 16:15] VITALS: BP 143/75; PULSE 71
== END 2024-07-24 16:28 | disposition home or self-care (01) ==
PROVIDERS: PCP Hospitalist; Visit Provider Obstetrics & Gynecology
PROC: 0U5B8ZZ Destruction of Endometrium, Via Natural or Artificial Opening Endoscopic (ICD-10-PCS; CPT 58563; principal; 2024-07-24 13:30)
DX: R93.89 Abnormal findings on diagnostic imaging of other specified body structures (principal); E66.9 Obesity, unspecified; Z68.32 Body mass index [BMI] 32.0-32.9, adult
CPT/HCPCS: 58558; 88305; A9270; J1100; J2003; J2250; J2405; J2704; J3010; J7120